=== PATIENT | female | born 1945 | race Two or more races ===

== ENCOUNTER → 2016-05-21 | Outpatient (CLI) | payer MEDICARE, MEDICAID ==
[~2016-05-21] MED LIST: BRIM0.2S2 OP; CIME-52; DEXL60CA3 OR; EMBRIL; FOLI1TAB6 OR; HYDR-1421 OR; HYDR12.56 OR; LATA0.0015 OP; LEFL20TA OR; LEVO100T81; LEVO500I7 IV; LOSA50TA6 OR; METH2.5T3 OR; METO-169; PRED5PAK8; TERI600S SC; TRIAMTERENE HCTZ
[2016-05-21 10:09] LABS: Albumin 3.7 g/dL (3.4-5.0); Bilirubin, Direct 0.2 mg/dL (0-0.2); Bilirubin, Total 0.5 mg/dL (0.2-1.0); Calcium 9.4 mg/dL (8.5-10.1); Potassium 3.8 mmol/L (3.5-5.1); Total Protein 8.1 g/dL (6.4-8.2)
[2016-05-21 10:13] LABS: Basophils # (auto) 0.1 uL; Basophils % (auto) 0.7 % (0.0-2.0); Eosinophils # (auto) 0.2 uL; Eosinophils % (auto) 3.2 % (0.0-7.0); Hematocrit 41.3 % (36.0-46.0); Hemoglobin 12.9 g/dL (12.2-16.2); Lymphocytes # (auto) 1.8 uL; Lymphocytes % (auto) 23.7 % (10.0-50.0); Mean Corpuscular Hemoglobin 28.4 pg (28.0-32.0); Mean Corpuscular Hgb Conc. 31.3 g/dL (32.0-36.0); Mean Corpuscular Volume 90.6 fL (80.0-100.0); Monocytes # (auto) 0.6 uL; Monocytes % (auto) 7.6 % (0.0-12.0); Neutrophils # (auto) 4.8 uL; Neutrophils % (auto) 64.8 % (37.0-80.0); Platelet Count (auto) 287 10^3/uL (140-450); Red Cell Distribution Width 14.6 % (11.6-16.0); White Blood Cell 7.5 10^3/uL (4.4-10.8)
== END | disposition home or self-care (01) ==
LOC: LAB 09:00
DX: I10 Essential (primary) hypertension (principal); M06.9 Rheumatoid arthritis, unspecified; D64.9 Anemia, unspecified; M25.50 Pain in unspecified joint; Z79.899 Other long term (current) drug therapy
CPT/HCPCS: 36415; 80053; 80076; 83036; 85025; 85652; 86141

== ENCOUNTER → 2016-08-07 | Outpatient (CLI) | payer MEDICARE, MEDICAID ==
[2016-08-07 10:36] LABS: Urine Bilirubin Negative (Negative); Urine Blood Negative /uL (Negative); Urine Color Yellow (Yellow); Urine Glucose Normal (Normal); Urine Hyaline Cast FEW /lpf (0 - 2); Urine Ketone Negative (Negative); Urine Nitrite Negative (Negative); Urine RBC 1 /hpf (0 - 4); Urine Squamous Epithelial Cell FEW /hpf (<5); Urine Urobilinogen Normal (Negative)
[2016-08-07 10:41] LABS: Cholesterol 178 mg/dL (< 200); HDL Cholesterol 57 mg/dL (40-59); LDL Cholesterol 101 mg/dL (< 100); Triglycerides 187 mg/dL (< 150)
== END | disposition home or self-care (01) ==
LOC: LAB 09:56
DX: E03.9 Hypothyroidism, unspecified (principal); E11.9 Type 2 diabetes mellitus without complications; M06.9 Rheumatoid arthritis, unspecified; I10 Essential (primary) hypertension; E78.5 Hyperlipidemia, unspecified; E74.8 Other specified disorders of carbohydrate metabolism
CPT/HCPCS: 36415; 80061; 81001; 83036; 84443

== ENCOUNTER → 2016-09-08 | Outpatient (CLI) | payer MEDICARE, MEDICAID ==
[2016-09-08 11:13] LABS: Basophils # (auto) 0 uL; Basophils % (auto) 0.5 % (0.0-2.0); Eosinophils # (auto) 0.2 uL; Eosinophils % (auto) 2.9 % (0.0-7.0); Hematocrit 36.4 % (36.0-46.0); Hemoglobin 11.9 g/dL (12.2-16.2); Lymphocytes # (auto) 1.5 uL; Lymphocytes % (auto) 20.3 % (10.0-50.0); Mean Corpuscular Hemoglobin 29.5 pg (28.0-32.0); Mean Corpuscular Hgb Conc. 32.8 g/dL (32.0-36.0); Mean Corpuscular Volume 90.1 fL (80.0-100.0); Mean Platelet Volume 8.5 fL (7.4-10.4); Monocytes # (auto) 0.5 uL; Monocytes % (auto) 7.3 % (0.0-12.0); Platelet Count (auto) 253 10^3/uL (140-450); White Blood Cell 7.2 10^3/uL (4.4-10.8)
[2016-09-08 11:35] LABS: Albumin 3.5 g/dL (3.4-5.0); BUN/Creatinine Ratio 18.2; Bilirubin, Total 0.5 mg/dL (0.2-1.0); Calcium 9.3 mg/dL (8.5-10.1); Potassium 3.5 mmol/L (3.5-5.1)
== END | disposition home or self-care (01) ==
LOC: LAB 10:45
DX: M06.9 Rheumatoid arthritis, unspecified (principal); M25.50 Pain in unspecified joint; D64.9 Anemia, unspecified; I10 Essential (primary) hypertension
CPT/HCPCS: 36415; 80053; 85025; 85652; 86141

== ENCOUNTER → 2016-12-11 | Outpatient (CLI) | payer MEDICARE, MEDICAID ==
[2016-12-11 12:24] LABS: Basophils # (auto) 0 uL; Basophils % (auto) 0.4 % (0.0-2.0); CONDITION Y; Eosinophils # (auto) 0.2 uL; Eosinophils % (auto) 1.7 % (0.0-7.0); Hematocrit 37.4 % (36.0-46.0); Hemoglobin 12.3 g/dL (12.2-16.2); Lymphocytes # (auto) 1.2 uL; Lymphocytes % (auto) 11.3 % (10.0-50.0); Mean Corpuscular Hemoglobin 29.2 pg (28.0-32.0); Mean Corpuscular Hgb Conc. 32.8 g/dL (32.0-36.0); Mean Corpuscular Volume 88.8 fL (80.0-100.0); Mean Platelet Volume 9.3 fL (7.4-10.4); Monocytes # (auto) 0.7 uL; Monocytes % (auto) 7.2 % (0.0-12.0); Neutrophils # (auto) 8.1 uL; Neutrophils % (auto) 79.4 % (37.0-80.0); Platelet Count (auto) 260 10^3/uL (140-450); Red Cell Distribution Width 14.4 % (11.6-16.0); White Blood Cell 10.3 10^3/uL (4.4-10.8)
[2016-12-11 13:06] LABS: Albumin 3.4 g/dL (3.4-5.0); BUN/Creatinine Ratio 20.8; Bilirubin, Total 0.4 mg/dL (0.2-1.0); Calcium 9.6 mg/dL (8.5-10.1); Total Protein 8.1 g/dL (6.4-8.2)
== END | disposition home or self-care (01) ==
LOC: LAB 11:19
DX: I10 Essential (primary) hypertension (principal); M25.50 Pain in unspecified joint; D64.9 Anemia, unspecified; M06.9 Rheumatoid arthritis, unspecified
CPT/HCPCS: 36415; 80053; 85025; 85652; 86141

== ENCOUNTER → 2016-12-22 | Outpatient (CLI) | payer MEDICARE, MEDICAID ==
[2016-12-22 08:33] LABS: Basophils # (auto) 0.1 uL; Basophils % (auto) 0.8 % (0.0-2.0); Eosinophils # (auto) 0.3 uL; Eosinophils % (auto) 3.7 % (0.0-7.0); Hematocrit 36.9 % (36.0-46.0); Hemoglobin 12.1 g/dL (12.2-16.2); Lymphocytes % (auto) 26.2 % (10.0-50.0); Mean Corpuscular Hgb Conc. 32.9 g/dL (32.0-36.0); Mean Corpuscular Volume 88.3 fL (80.0-100.0); Mean Platelet Volume 7.9 fL (7.4-10.4); Monocytes # (auto) 0.6 uL; Monocytes % (auto) 7.5 % (0.0-12.0); Neutrophils # (auto) 4.8 uL; Neutrophils % (auto) 61.8 % (37.0-80.0); Platelet Count (auto) 268 10^3/uL (140-450); Red Cell Distribution Width 14.8 % (11.6-16.0); White Blood Cell 7.8 10^3/uL (4.4-10.8)
[2016-12-22 08:55] LABS: Cholesterol 157 mg/dL (< 200); HDL Cholesterol 61 mg/dL (40-59); LDL Cholesterol 91 mg/dL (< 100); Triglycerides 162 mg/dL (< 150)
== END | disposition home or self-care (01) ==
LOC: LAB 08:08
DX: I10 Essential (primary) hypertension (principal); E66.01 Morbid (severe) obesity due to excess calories; E11.9 Type 2 diabetes mellitus without complications; E78.5 Hyperlipidemia, unspecified
CPT/HCPCS: 36415; 80061; 83036; 84443; 85025

== ENCOUNTER → 2017-03-11 | Outpatient (CLI) | payer MEDICARE, MEDICAID ==
[2017-03-11 13:53] LABS: Basophils # (auto) 0.1 uL; Basophils % (auto) 0.7 % (0.0-2.0); Eosinophils # (auto) 0 uL; Eosinophils % (auto) 0.4 % (0.0-7.0); Hematocrit 34.3 % (36.0-46.0); Hemoglobin 11.3 g/dL (12.2-16.2); Lymphocytes % (auto) 12.2 % (10.0-50.0); Mean Corpuscular Hemoglobin 29.3 pg (28.0-32.0); Mean Corpuscular Volume 88.8 fL (80.0-100.0); Mean Platelet Volume 8.3 fL (6.9-10.8); Monocytes # (auto) 0.4 uL; Monocytes % (auto) 4.5 % (0.0-12.0); Neutrophils % (auto) 82.2 % (37.0-80.0); Nucleated Red Blood Cells % 0.1 %; Platelet Count (auto) 226 10^3/uL (140-450); White Blood Cell 8.6 10^3/uL (4.4-10.8)
[2017-03-11 14:17] LABS: Albumin 3.4 g/dL (3.4-5.0); BUN/Creatinine Ratio 24.7; Bilirubin, Total 0.4 mg/dL (0.2-1.0); Calcium 8.9 mg/dL (8.5-10.1); Potassium 3.7 mmol/L (3.5-5.1); Total Protein 8.4 g/dL (6.4-8.2)
== END | disposition home or self-care (01) ==
LOC: LAB 13:25
DX: I10 Essential (primary) hypertension (principal); M06.9 Rheumatoid arthritis, unspecified; D64.9 Anemia, unspecified; Z79.899 Other long term (current) drug therapy
CPT/HCPCS: 36415; 80053; 85025; 85652; 86141

== ENCOUNTER → 2017-03-17 | Outpatient (CLI) | payer MEDICARE, MEDICAID ==
[2017-03-17 15:10] LABS: Hepatitis B Surface Antibody Negative
== END | disposition home or self-care (01) ==
LOC: LAB 13:07
DX: M06.9 Rheumatoid arthritis, unspecified (principal); A15.0 Tuberculosis of lung; K75.9 Inflammatory liver disease, unspecified
CPT/HCPCS: 36415; 86704; 86706; 86708; 86803; 87340

== ENCOUNTER → 2017-04-27 | Outpatient (CLI) | payer MEDICARE, MEDICAID ==
[2017-04-27 09:47] LABS: Basophils # (auto) 0 uL; Basophils % (auto) 0.7 % (0.0-2.0); Eosinophils # (auto) 0.2 uL; Eosinophils % (auto) 2.6 % (0.0-7.0); Hematocrit 36.3 % (36.0-46.0); Hemoglobin 11.7 g/dL (12.2-16.2); Lymphocytes # (auto) 1.5 uL; Lymphocytes % (auto) 23.1 % (10.0-50.0); Mean Corpuscular Hemoglobin 29.1 pg (28.0-32.0); Mean Corpuscular Hgb Conc. 32.3 g/dL (32.0-36.0); Mean Corpuscular Volume 90.1 fL (80.0-100.0); Monocytes # (auto) 0.5 uL; Monocytes % (auto) 8.1 % (0.0-12.0); Neutrophils # (auto) 4.2 uL; Neutrophils % (auto) 65.5 % (37.0-80.0); Nucleated Red Blood Cells % 0.1 %; Platelet Count (auto) 241 10^3/uL (140-450); Red Blood Cells 4.03 10^6/uL (4.0-5.20); Red Cell Distribution Width 14.5 % (11.8-14.3); White Blood Cell 6.5 10^3/uL (4.4-10.8)
[2017-04-27 10:16] LABS: Albumin 3.6 g/dL (3.4-5.0); BUN/Creatinine Ratio 28.2; Bilirubin, Total 0.4 mg/dL (0.2-1.0); Calcium 9.7 mg/dL (8.5-10.1); Potassium 4.1 mmol/L (3.5-5.1); Total Protein 8.3 g/dL (6.4-8.2)
[2017-04-27 12:15] LABS: Urine Blood Negative /uL (Negative); Urine Specific Gravity 1.021 (1.001-1.035)
[2017-04-27 12:16] LABS: Urine Bacteria FEW /hpf (None Seen)
== END | disposition home or self-care (01) ==
LOC: LAB 09:11
DX: E78.5 Hyperlipidemia, unspecified (principal); E03.9 Hypothyroidism, unspecified; M06.9 Rheumatoid arthritis, unspecified; I10 Essential (primary) hypertension; E11.9 Type 2 diabetes mellitus without complications
CPT/HCPCS: 36415; 80053; 80061; 81001; 83036; 84443; 85025

== ENCOUNTER 2017-07-10 10:52 | Emergency (ER) | payer MEDICARE, MEDICAID ==
[~2017-07-10] VITALS: Ht 157.5 cm; Wt 90.7 kg
[2017-07-10 12:21] LABS: Basophils # (auto) 0 uL; Basophils % (auto) 0.6 % (0.0-2.0); Eosinophils # (auto) 0.1 uL; Eosinophils % (auto) 1.8 % (0.0-7.0); Hematocrit 29.1 % (36.0-46.0); Hemoglobin 9.5 g/dL (12.2-16.2); Lymphocytes # (auto) 1.3 uL; Lymphocytes % (auto) 17.5 % (10.0-50.0); Mean Corpuscular Hemoglobin 30.5 pg (28.0-32.0); Mean Corpuscular Hgb Conc. 32.6 g/dL (32.0-36.0); Mean Corpuscular Volume 93.5 fL (80.0-100.0); Monocytes # (auto) 0.8 uL; Monocytes % (auto) 10.5 % (0.0-12.0); Neutrophils # (auto) 5.3 uL; Neutrophils % (auto) 69.6 % (37.0-80.0); Platelet Count (auto) 191 10^3/uL (140-450); Red Blood Cells 3.11 10^6/uL (4.0-5.20); Red Cell Distribution Width 17.2 % (11.8-14.3); White Blood Cell 7.6 10^3/uL (4.4-10.8)
[2017-07-10 12:25] LABS: Albumin 3.3 g/dL (3.4-5.0); BUN/Creatinine Ratio 23.4; Bilirubin, Total 0.4 mg/dL (0.2-1.0); Calcium 8.7 mg/dL (8.5-10.1); Potassium 3.7 mmol/L (3.5-5.1); Total Protein 6.9 g/dL (6.4-8.2)
[2017-07-10 13:29] VITALS: BP 130/74
== END 2017-07-10 13:37 | disposition home or self-care (01) ==
LOC: ER 10:52 → EDBD 10:52 → ER 13:37
DX: R42 Dizziness and giddiness (principal); D64.9 Anemia, unspecified; E11.9 Type 2 diabetes mellitus without complications; I10 Essential (primary) hypertension; Z88.1 Allergy status to other antibiotic agents; Z88.8 Allergy status to other drugs, medicaments and biological substances; Z79.899 Other long term (current) drug therapy; Z90.49 Acquired absence of other specified parts of digestive tract
CPT/HCPCS: 36415; 70450; 80053; 85025; 93005

== ENCOUNTER → 2017-08-19 | Outpatient (CLI) | payer MEDICARE, MEDICAID ==
[2017-08-19 09:08] LABS: Basophils # (auto) 0.1 uL; Basophils % (auto) 0.9 % (0.0-2.0); Eosinophils # (auto) 0.2 uL; Eosinophils % (auto) 3.2 % (0.0-7.0); Hematocrit 34.2 % (36.0-46.0); Hemoglobin 11.1 g/dL (12.2-16.2); Lymphocytes # (auto) 1.3 uL; Lymphocytes % (auto) 18.2 % (10.0-50.0); Mean Corpuscular Hemoglobin 29.5 pg (28.0-32.0); Mean Corpuscular Hgb Conc. 32.5 g/dL (32.0-36.0); Mean Corpuscular Volume 90.6 fL (80.0-100.0); Monocytes # (auto) 0.7 uL; Monocytes % (auto) 9.4 % (0.0-12.0); Neutrophils # (auto) 4.8 uL; Neutrophils % (auto) 68.3 % (37.0-80.0); Nucleated Red Blood Cells % 0.1 %; Platelet Count (auto) 239 10^3/uL (140-450); Red Blood Cells 3.78 10^6/uL (4.0-5.20); Red Cell Distribution Width 15.3 % (11.8-14.3)
[2017-08-19 10:13] LABS: Urine Bacteria NONE SEEN /hpf (None Seen); Urine Blood Negative /uL (Negative); Urine Specific Gravity 1.015 (1.001-1.035); Urine WBC 1 /hpf (0 - 5)
[2017-08-19 10:50] LABS: Albumin 3.7 g/dL (3.4-5.0); BUN/Creatinine Ratio 25.4; Bilirubin, Total 0.4 mg/dL (0.2-1.0); Calcium 9.2 mg/dL (8.5-10.1); Potassium 3.7 mmol/L (3.5-5.1)
== END | disposition home or self-care (01) ==
LOC: LAB 08:40
DX: I10 Essential (primary) hypertension (principal); M06.9 Rheumatoid arthritis, unspecified; E11.9 Type 2 diabetes mellitus without complications; E78.5 Hyperlipidemia, unspecified
CPT/HCPCS: 36415; 80053; 80061; 81001; 83036; 84443; 85025

== ENCOUNTER → 2018-05-16 | Outpatient (CLI) | payer MEDICARE, MEDICAID ==
[~2018-05-16] MED LIST changes: +LOSA-46 OR; -LOSA50TA6 OR
[2018-05-16 10:55] LABS: Basophils # (auto) 0 uL; Basophils % (auto) 0.6 % (0.0-2.0); Eosinophils # (auto) 0.1 uL; Eosinophils % (auto) 1.2 % (0.0-7.0); Hematocrit 35.8 % (36.0-46.0); Lymphocytes # (auto) 1.6 uL; Lymphocytes % (auto) 21.2 % (10.0-50.0); Mean Corpuscular Hemoglobin 29.8 pg (28.0-32.0); Mean Corpuscular Hgb Conc. 33.6 g/dL (32.0-36.0); Mean Corpuscular Volume 88.8 fL (80.0-100.0); Monocytes # (auto) 0.6 uL; Monocytes % (auto) 7.5 % (0.0-12.0); Neutrophils # (auto) 5.2 uL; Neutrophils % (auto) 69.5 % (37.0-80.0); Platelet Count (auto) 242 10^3/uL (140-450); Red Blood Cells 4.04 10^6/uL (4.0-5.20); Red Cell Distribution Width 15.8 % (11.8-14.3); White Blood Cell 7.4 10^3/uL (4.4-10.8)
[2018-05-16 11:02] LABS: Urine Bacteria MOD /hpf (None Seen); Urine Blood 1+ /uL (Negative); Urine Mucus FEW (None Seen); Urine Specific Gravity 1.031 (1.001-1.035); Urine WBC 80 /hpf (0 - 5)
[2018-05-16 11:12] LABS: Potassium 3.8 mmol/L (3.5-5.1)
[2018-05-16 11:23] LABS: Albumin 3.6 g/dL (3.4-5.0); BUN/Creatinine Ratio 23.9; Bilirubin, Total 0.6 mg/dL (0.2-1.0); Calcium 8.8 mg/dL (8.5-10.1)
== END | disposition home or self-care (01) ==
LOC: LAB 09:17
DX: E78.5 Hyperlipidemia, unspecified (principal); E03.9 Hypothyroidism, unspecified; E11.9 Type 2 diabetes mellitus without complications; I10 Essential (primary) hypertension
CPT/HCPCS: 36415; 80053; 80061; 81001; 83036; 84443; 85025

== ENCOUNTER → 2018-07-19 | Outpatient (CLI) | payer MEDICARE, MEDICAID ==
[2018-07-19 10:29] LABS: Basophils # (auto) 0 uL; Basophils % (auto) 0.5 % (0.0-2.0); Eosinophils # (auto) 0 uL; Eosinophils % (auto) 0.6 % (0.0-7.0); Hematocrit 38.6 % (36.0-46.0); Hemoglobin 12.8 g/dL (12.2-16.2); Lymphocytes # (auto) 1.1 uL; Lymphocytes % (auto) 16.1 % (10.0-50.0); Mean Corpuscular Hgb Conc. 33.1 g/dL (32.0-36.0); Mean Corpuscular Volume 90.6 fL (80.0-100.0); Monocytes # (auto) 0.5 uL; Monocytes % (auto) 8.4 % (0.0-12.0); Neutrophils # (auto) 4.9 uL; Neutrophils % (auto) 74.4 % (37.0-80.0); Nucleated Red Blood Cells % 0.1 %; Platelet Count (auto) 235 10^3/uL (140-450); Red Blood Cells 4.27 10^6/uL (4.0-5.20); Red Cell Distribution Width 14.8 % (11.8-14.3); White Blood Cell 6.5 10^3/uL (4.4-10.8)
[2018-07-19 10:49] LABS: Potassium 3.8 mmol/L (3.5-5.1)
[2018-07-19 10:59] LABS: Albumin 4.2 g/dL (3.4-5.0); BUN/Creatinine Ratio 27.6; Bilirubin, Total 0.6 mg/dL (0.2-1.0); Calcium 9.9 mg/dL (8.5-10.1); Total Protein 8.7 g/dL (6.4-8.2)
[2018-07-19 11:01] LABS: Free T4 (Free Thyroxine) 1.38 ng/dL (0.89-1.76)
[2018-07-19 11:02] LABS: T3 Total 0.85 ng/mL (0.60-1.81)
== END | disposition home or self-care (01) ==
LOC: LAB 09:50
PROVIDERS: ATTEND Internal Medicine
DX: E11.9 Type 2 diabetes mellitus without complications (principal); E07.9 Disorder of thyroid, unspecified; E55.9 Vitamin D deficiency, unspecified; E88.89 Other specified metabolic disorders; R79.89 Other specified abnormal findings of blood chemistry
CPT/HCPCS: 36415; 80053; 82306; 83036; 84439; 84443; 84480; 85025

== ENCOUNTER → 2020-03-19 | Outpatient (CLI) | payer MEDICARE, MEDICAID ==
[~2020-03-19] MED LIST changes: -DEXL60CA3 OR; +DEXL60CA4 OR; -LATA0.0015 OP; +LATA0.0019 OP; -LOSA-46 OR; +LOSA-69 OR; +METH2.5T OR; -METH2.5T3 OR
== END | disposition home or self-care (01) ==
LOC: LAB 15:43
PROVIDERS: ATTEND Nurse Practitioner Family
DX: N39.0 Urinary tract infection, site not specified (principal)
CPT/HCPCS: 87086

== ENCOUNTER → 2020-09-02 | Outpatient (CLI) | payer MEDICARE, MEDICAID ==
[~2020-09-02] MED LIST changes: -METO-169; +METO-289
[2020-09-02 09:17] LABS: Basophils # (auto) 0 10 ^3/uL (0-0.2); Basophils % (auto) 0.7 % (0.0-2.0); Eosinophils # (auto) 0.1 10 ^3/uL (0-0.8); Hematocrit 35.2 % (36.0-46.0); Hemoglobin 11.7 g/dL (12.2-16.2); Lymphocytes # (auto) 1.8 10 ^3/uL (0.4-5.4); Lymphocytes % (auto) 26.2 % (10.0-50.0); Mean Corpuscular Hemoglobin 28.7 pg (28.0-32.0); Mean Corpuscular Hgb Conc. 33.2 g/dL (32.0-36.0); Mean Corpuscular Volume 86.5 fL (80.0-100.0); Monocytes # (auto) 0.7 10 ^3/uL (0-1.3); Monocytes % (auto) 9.5 % (0.0-12.0); Neutrophils # (auto) 4.3 10 ^3/uL (1.6-8.6); Neutrophils % (auto) 61.6 % (37.0-80.0); Nucleated Red Blood Cells % 0.1 %; Platelet Count (auto) 247 10^3/uL (140-450); Red Blood Cells 4.07 10^6/uL (4.0-5.20); Red Cell Distribution Width 16.4 % (11.8-14.3); White Blood Cell 6.9 10^3/uL (4.4-10.8)
[2020-09-02 10:08] LABS: Albumin 3.6 g/dL (3.4-5.0); Calcium 9.6 mg/dL (8.5-10.1); Potassium 3.6 mmol/L (3.5-5.1)
[2020-09-02 10:16] LABS: BUN/Creatinine Ratio 21.4; Bilirubin, Total 0.6 mg/dL (0.2-1.0); Total Protein 8.3 g/dL (6.4-8.2)
== END | disposition home or self-care (01) ==
LOC: LAB 09:00
PROVIDERS: ATTEND Student in an Organized Health Care Education/Training Program
DX: E11.9 Type 2 diabetes mellitus without complications (principal); R30.0 Dysuria
CPT/HCPCS: 36415; 80053; 80061; 83036; 84443; 85025; 87086

== ENCOUNTER → 2020-09-25 | Outpatient (CLI) | payer MEDICARE, MEDICAID ==
[2020-09-25 12:14] LABS: Basophils # (auto) 0 10 ^3/uL (0-0.2); Basophils % (auto) 0.6 % (0.0-2.0); Eosinophils # (auto) 0.3 10 ^3/uL (0-0.8); Eosinophils % (auto) 4.5 % (0.0-7.0); Hematocrit 33.9 % (36.0-46.0); Hemoglobin 11.4 g/dL (12.2-16.2); Lymphocytes % (auto) 28.1 % (10.0-50.0); Mean Corpuscular Hemoglobin 28.9 pg (28.0-32.0); Mean Corpuscular Hgb Conc. 33.5 g/dL (32.0-36.0); Mean Corpuscular Volume 86.2 fL (80.0-100.0); Monocytes # (auto) 0.6 10 ^3/uL (0-1.3); Monocytes % (auto) 8.2 % (0.0-12.0); Neutrophils # (auto) 4.2 10 ^3/uL (1.6-8.6); Neutrophils % (auto) 58.6 % (37.0-80.0); Nucleated Red Blood Cells % 0.3 %; Platelet Count (auto) 286 10^3/uL (140-450); Red Blood Cells 3.93 10^6/uL (4.0-5.20); Red Cell Distribution Width 16.4 % (11.8-14.3); White Blood Cell 7.2 10^3/uL (4.4-10.8)
[2020-09-25 13:16] LABS: BUN/Creatinine Ratio 16.7; Calcium 9.6 mg/dL (8.5-10.1); Potassium 3.6 mmol/L (3.5-5.1)
== END | disposition home or self-care (01) ==
LOC: LAB 11:57
PROVIDERS: ATTEND Student in an Organized Health Care Education/Training Program
DX: E11.9 Type 2 diabetes mellitus without complications (principal); N39.0 Urinary tract infection, site not specified
CPT/HCPCS: 36415; 80048; 82043; 83036; 85025; 87086

== ENCOUNTER 2020-11-08 12:44 | Day surgery (SDC) | payer MEDICARE, MEDICAID ==
[2020-11-05 11:38] LABS: Basophils # (auto) 0 10 ^3/uL (0-0.2); Basophils % (auto) 0.6 % (0.0-2.0); Eosinophils # (auto) 0.1 10 ^3/uL (0-0.8); Hematocrit 34.4 % (36.0-46.0); Hemoglobin 11.6 g/dL (12.2-16.2); Lymphocytes # (auto) 1.3 10 ^3/uL (0.4-5.4); Lymphocytes % (auto) 16.8 % (10.0-50.0); Mean Corpuscular Hemoglobin 28.4 pg (28.0-32.0); Mean Corpuscular Hgb Conc. 33.6 g/dL (32.0-36.0); Mean Corpuscular Volume 84.6 fL (80.0-100.0); Monocytes # (auto) 0.6 10 ^3/uL (0-1.3); Monocytes % (auto) 7.5 % (0.0-12.0); Neutrophils # (auto) 5.9 10 ^3/uL (1.6-8.6); Neutrophils % (auto) 74.1 % (37.0-80.0); Nucleated Red Blood Cells % 0.1 %; Red Blood Cells 4.07 10^6/uL (4.0-5.20); Red Cell Distribution Width 16.4 % (11.8-14.3)
[2020-11-05 11:45] LABS: Calcium 9.9 mg/dL (8.5-10.1); Potassium 3.7 mmol/L (3.5-5.1)
[2020-11-05 11:49] LABS: Bilirubin, Total 0.5 mg/dL (0.2-1.0)
[2020-11-05 11:53] LABS: Urine Bacteria MOD /hpf (None Seen); Urine Blood 1+ /uL (Negative); Urine Specific Gravity 1.019 (1.001-1.035); Urine WBC 11 /hpf (0 - 5)
[~2020-11-08] VITALS: Ht 152.4 cm; Wt 76.7 kg
[~2020-11-08 12:44] MED LIST changes: +ALBUAER3 IN; +AMLO-496 PO; +ATOR20TA PO; -BRIM0.2S2 OP; +CHOL20007 PO; -CIME-52; -DEXL60CA4 OR; -LATA0.0019 OP; -LEFL20TA OR; -LEVO500I7 IV; -LOSA-69 OR; +METF-370 PO; -METH2.5T OR; +PANT1INJ3 PO; +[UNRECOGNIZED DRUG - CODE] PO
[2020-11-08] MEDS ORDERED: LIDOCAINE VISCOUS 2% 15ML UD ONE (12:55)
[2020-11-08] MEDS: diphenhdrAMINE HCL 50 MG/1 ML VL ONE ×2 (13:48→13:51)
[2020-11-08] MEDS: MIDAZOLAM HCL 5 MG/ML-1ML VIAL ONE ×3 (13:48→13:56)
[2020-11-08] MEDS: fentaNYL CITRATE 100 MCG/2 ML VL ONE ×3 (13:48→13:56)
[2020-11-08 14:30] VITALS: BP 144/77
== END 2020-11-08 14:45 | disposition home or self-care (01) ==
LOC: GI 12:44
PROVIDERS: ATTEND Internal Medicine Gastroenterology
DX: R13.10 Dysphagia, unspecified (principal); K29.50 Unspecified chronic gastritis without bleeding; K31.89 Other diseases of stomach and duodenum; J44.9 Chronic obstructive pulmonary disease, unspecified; K21.9 Gastro-esophageal reflux disease without esophagitis; E11.9 Type 2 diabetes mellitus without complications; E03.9 Hypothyroidism, unspecified; I10 Essential (primary) hypertension; E78.5 Hyperlipidemia, unspecified; Z79.899 Other long term (current) drug therapy; Z88.1 Allergy status to other antibiotic agents; Z88.2 Allergy status to sulfonamides; Z88.8 Allergy status to other drugs, medicaments and biological substances; Z68.33 Body mass index [BMI] 33.0-33.9, adult; Z87.891 Personal history of nicotine dependence; Z20.822 Contact with and (suspected) exposure to COVID-19
CPT/HCPCS: 36415; 43239; 43450; 80053; 81001; 82962; 85025; 88305; 88342; J1200; J2250; J3010; J7030; U0003; G0500

== ENCOUNTER 2020-11-22 11:55 | Day surgery (SDC) | payer MEDICARE, MEDICAID ==
[2020-11-19 12:20] LABS: Basophils # (auto) 0 10 ^3/uL (0-0.2); Basophils % (auto) 0.5 % (0.0-2.0); Eosinophils # (auto) 0 10 ^3/uL (0-0.8); Eosinophils % (auto) 0.3 % (0.0-7.0); Hematocrit 35.2 % (36.0-46.0); Hemoglobin 11.7 g/dL (12.2-16.2); Lymphocytes # (auto) 1.1 10 ^3/uL (0.4-5.4); Lymphocytes % (auto) 14.4 % (10.0-50.0); Mean Corpuscular Hemoglobin 28.2 pg (28.0-32.0); Mean Corpuscular Hgb Conc. 33.2 g/dL (32.0-36.0); Monocytes # (auto) 0.5 10 ^3/uL (0-1.3); Monocytes % (auto) 6.1 % (0.0-12.0); Neutrophils # (auto) 6.1 10 ^3/uL (1.6-8.6); Neutrophils % (auto) 78.7 % (37.0-80.0); Nucleated Red Blood Cells % 0.1 %; Red Blood Cells 4.14 10^6/uL (4.0-5.20); Red Cell Distribution Width 16.3 % (11.8-14.3); White Blood Cell 7.8 10^3/uL (4.4-10.8)
[2020-11-19 12:32] LABS: Urine Bacteria MOD /hpf (None Seen); Urine Blood TRACE /uL (Negative); Urine Hyaline Cast FEW /lpf (0 - 2); Urine Mucus FEW (None Seen); Urine WBC 12 /hpf (0 - 5)
[2020-11-19 13:06] LABS: Calcium 9.9 mg/dL (8.5-10.1); Potassium 3.5 mmol/L (3.5-5.1)
[2020-11-19 13:11] LABS: BUN/Creatinine Ratio 18.6; Bilirubin, Total 0.5 mg/dL (0.2-1.0); Total Protein 8.8 g/dL (6.4-8.2)
[~2020-11-22] VITALS: Ht 152.4 cm; Wt 76.7 kg
[2020-11-22] MEDS ORDERED: SODIUM CHLORIDE LOCK 10 ML ONE (15:06)
[2020-11-22] MEDS: fentaNYL CITRATE 100 MCG/2 ML VL ONE ×2 (15:17→15:20)
[2020-11-22] MEDS: diphenhdrAMINE HCL 50 MG/1 ML VL ONE ×2 (15:17→15:20)
[2020-11-22] MEDS: MIDAZOLAM HCL 5 MG/ML-1ML VIAL ONE ×3 (15:17→15:31)
[2020-11-22 16:10] VITALS: BP 137/63
== END 2020-11-22 16:20 | disposition home or self-care (01) ==
LOC: GI 11:55
PROVIDERS: ATTEND Internal Medicine Gastroenterology
DX: Z12.11 Encounter for screening for malignant neoplasm of colon (principal); D12.2 Benign neoplasm of ascending colon; K63.89 Other specified diseases of intestine; K57.30 Diverticulosis of large intestine without perforation or abscess without bleeding; K64.8 Other hemorrhoids; E03.9 Hypothyroidism, unspecified; J45.909 Unspecified asthma, uncomplicated; K21.9 Gastro-esophageal reflux disease without esophagitis; Z96.641 Presence of right artificial hip joint; Z88.8 Allergy status to other drugs, medicaments and biological substances; Z88.1 Allergy status to other antibiotic agents; Z88.2 Allergy status to sulfonamides; Z87.891 Personal history of nicotine dependence; Z98.890 Other specified postprocedural states; Z79.899 Other long term (current) drug therapy; Z20.822 Contact with and (suspected) exposure to COVID-19
CPT/HCPCS: 36415; 45385; 80053; 81001; 82962; 85025; J1200; J2250; J3010; J7030; U0003

== ENCOUNTER → 2021-05-06 | Outpatient (CLI) | payer MEDICARE, MEDICAID ==
[2021-05-06 09:51] LABS: Basophils # (auto) 0 10 ^3/uL (0-0.2); Basophils % (auto) 0.8 % (0.0-2.0); Eosinophils # (auto) 0.1 10 ^3/uL (0-0.8); Hematocrit 33.2 % (36.0-46.0); Hemoglobin 11.1 g/dL (12.2-16.2); Lymphocytes % (auto) 17.7 % (10.0-50.0); Mean Corpuscular Hemoglobin 28.7 pg (28.0-32.0); Mean Corpuscular Hgb Conc. 33.3 g/dL (32.0-36.0); Mean Corpuscular Volume 86.3 fL (80.0-100.0); Monocytes # (auto) 0.5 10 ^3/uL (0-1.3); Monocytes % (auto) 8.3 % (0.0-12.0); Neutrophils # (auto) 4.2 10 ^3/uL (1.6-8.6); Neutrophils % (auto) 71.2 % (37.0-80.0); Nucleated Red Blood Cells % 0.1 %; Red Blood Cells 3.85 10^6/uL (4.0-5.20); Red Cell Distribution Width 16.3 % (11.8-14.3); White Blood Cell 5.9 10^3/uL (4.4-10.8)
[2021-05-06 10:03] LABS: BUN/Creatinine Ratio 18.9; Calcium 9.3 mg/dL (8.5-10.1); Potassium 3.3 mmol/L (3.5-5.1)
== END | disposition home or self-care (01) ==
LOC: LAB 08:48
PROVIDERS: ATTEND Student in an Organized Health Care Education/Training Program
DX: E11.9 Type 2 diabetes mellitus without complications (principal); I10 Essential (primary) hypertension; N39.0 Urinary tract infection, site not specified; E03.9 Hypothyroidism, unspecified
CPT/HCPCS: 36415; 80048; 83036; 84443; 85025; 87086

== ENCOUNTER 2021-06-03 08:34 | Emergency (ER) | payer MEDICARE, MEDICAID ==
[~2021-06-03] VITALS: Ht 154.9 cm; Wt 65.8 kg
[2021-06-03 09:30] LABS: Basophils # (auto) 0 10 ^3/uL (0-0.2); Basophils % (auto) 0.3 % (0.0-2.0); Eosinophils # (auto) 0 10 ^3/uL (0-0.8); Eosinophils % (auto) 0.2 % (0.0-7.0); Hematocrit 34.5 % (36.0-46.0); Hemoglobin 11.4 g/dL (12.2-16.2); Lymphocytes # (auto) 0.5 10 ^3/uL (0.4-5.4); Lymphocytes % (auto) 7.8 % (10.0-50.0); Mean Corpuscular Hemoglobin 28.3 pg (28.0-32.0); Mean Corpuscular Hgb Conc. 33.1 g/dL (32.0-36.0); Mean Corpuscular Volume 85.5 fL (80.0-100.0); Monocytes # (auto) 0.5 10 ^3/uL (0-1.3); Monocytes % (auto) 8.3 % (0.0-12.0); Neutrophils # (auto) 5.5 10 ^3/uL (1.6-8.6); Neutrophils % (auto) 83.4 % (37.0-80.0); Nucleated Red Blood Cells % 0.1 %; Red Blood Cells 4.03 10^6/uL (4.0-5.20); Red Cell Distribution Width 16.1 % (11.8-14.3); White Blood Cell 6.6 10^3/uL (4.4-10.8)
[2021-06-03] MEDS ORDERED: SODIUM CHLORIDE 0.9% 1,000 ML IV ONE (09:30)
[2021-06-03 09:44] LABS: Albumin 3.4 g/dL (3.4-5.0); Potassium 3.3 mmol/L (3.5-5.1)
[2021-06-03 09:49] LABS: BUN/Creatinine Ratio 19.8; Bilirubin, Total 0.6 mg/dL (0.2-1.0); Total Protein 8.3 g/dL (6.4-8.2)
[2021-06-03] MEDS ORDERED: POTASSIUM EFFERVESENT TAB 25 MEQ PO ONE (11:15)
[2021-06-03 11:18] VITALS: BP 129/70
== END 2021-06-03 11:50 | disposition home or self-care (01) ==
LOC: EDBD 08:34 → ER 08:34
DX: U07.1 COVID-19 (principal); E87.6 Hypokalemia; E11.65 Type 2 diabetes mellitus with hyperglycemia; I10 Essential (primary) hypertension; Z86.73 Personal history of transient ischemic attack (TIA), and cerebral infarction without residual deficits; Z90.49 Acquired absence of other specified parts of digestive tract; Z79.899 Other long term (current) drug therapy; Z88.1 Allergy status to other antibiotic agents; Z88.8 Allergy status to other drugs, medicaments and biological substances; Z88.2 Allergy status to sulfonamides
CPT/HCPCS: 36415; 71045; 80053; 84484; 85025; 87426; 93005; 96360; 96361; 99285; J7030

== ENCOUNTER 2022-02-12 15:28 | Emergency (ER) | payer MEDICARE, MEDICAID ==
[~2022-02-12] VITALS: Ht 154.9 cm; Wt 75.0 kg
[2022-02-12] MEDS ORDERED: cloNIDine HCL 0.1 MG TAB ONE (15:51)
[2022-02-12] MEDS ORDERED: cloNIDine HCL 0.1 MG TAB PO ONE (16:00)
[2022-02-12 17:15] VITALS: BP 120/58
[2022-02-12 17:58] LABS: Basophils # (auto) 0.1 10 ^3/uL (0-0.2); Basophils % (auto) 1.1 % (0.0-2.0); Eosinophils # (auto) 0.1 10 ^3/uL (0-0.8); Eosinophils % (auto) 1.2 % (0.0-7.0); Hemoglobin 11.4 g/dL (12.2-16.2); Lymphocytes # (auto) 0.5 10 ^3/uL (0.4-5.4); Lymphocytes % (auto) 9.3 % (10.0-50.0); Mean Corpuscular Hemoglobin 27.7 pg (28.0-32.0); Mean Corpuscular Hgb Conc. 32.6 g/dL (32.0-36.0); Mean Corpuscular Volume 84.9 fL (80.0-100.0); Monocytes # (auto) 0.3 10 ^3/uL (0-1.3); Monocytes % (auto) 5.6 % (0.0-12.0); Neutrophils # (auto) 4.5 10 ^3/uL (1.6-8.6); Neutrophils % (auto) 82.8 % (37.0-80.0); Nucleated Red Blood Cells % 0.1 %; Red Blood Cells 4.12 10^6/uL (4.0-5.20); Red Cell Distribution Width 16.3 % (11.8-14.3); White Blood Cell 5.5 10^3/uL (4.4-10.8)
[2022-02-12 18:04] LABS: Albumin 3.6 g/dL (3.4-5.0); Calcium 9.3 mg/dL (8.5-10.1); Magnesium 1.7 mg/dL (1.6-2.6); Potassium 4.8 mmol/L (3.5-5.1)
[2022-02-12 18:06] LABS: BUN/Creatinine Ratio 12.4; Bilirubin, Total 0.4 mg/dL (0.2-1.0); Total Protein 7.3 g/dL (6.4-8.2)
[2022-02-12 18:15] LABS: INR 1.03 (0.9-1.15); Partial Thromboplastin Time 26.8 sec (24.6-33.4)
[2022-02-12] MEDS ORDERED: IOHEXOL 350 MG/ML 100ML IJ ONE (19:08)
[2022-02-12] MEDS ORDERED: DOXY-340 PO (22:06)
[2022-02-12] MEDS ORDERED: DOXYCYCLINE 100 MG TAB/CAP PO ONE (22:15)
== END 2022-02-12 22:27 | disposition home or self-care (01) ==
LOC: ER 15:28
DX: J18.9 Pneumonia, unspecified organism (principal); I10 Essential (primary) hypertension; E11.9 Type 2 diabetes mellitus without complications; Z86.73 Personal history of transient ischemic attack (TIA), and cerebral infarction without residual deficits; Z90.49 Acquired absence of other specified parts of digestive tract; Z79.899 Other long term (current) drug therapy; Z88.1 Allergy status to other antibiotic agents; Z88.2 Allergy status to sulfonamides; Z88.8 Allergy status to other drugs, medicaments and biological substances
CPT/HCPCS: 36415; 71045; 71275; 80053; 83735; 83880; 84484; 85025; 85379; 85610; 85730; 93005; 99285; Q9967

== ENCOUNTER 2022-02-16 14:51 | Inpatient (IN) | payer MEDICARE, MEDICAID ==
[~2022-02-16] VITALS: Ht 172.7 cm; Wt 74.8 kg
[~2022-02-16 14:51] MED LIST changes: +DOXY-340 PO
[2022-02-16] MEDS ORDERED: cefTRIAXone 1GM/50ML D5W 50 ML IV ONE (15:45)
[2022-02-16] MEDS ORDERED: SODIUM CHLORIDE 0.9% 1,000 ML IV ONE (16:15)
[2022-02-16 16:23] LABS: Basophils # (auto) 0 10 ^3/uL (0-0.2); Basophils % (auto) 0.4 % (0.0-2.0); Eosinophils # (auto) 0 10 ^3/uL (0-0.8); Hematocrit 36.9 % (36.0-46.0); Hemoglobin 11.9 g/dL (12.2-16.2); Lymphocytes # (auto) 0.7 10 ^3/uL (0.4-5.4); Mean Corpuscular Hemoglobin 27.7 pg (28.0-32.0); Mean Corpuscular Hgb Conc. 32.3 g/dL (32.0-36.0); Mean Corpuscular Volume 85.6 fL (80.0-100.0); Monocytes # (auto) 0.9 10 ^3/uL (0-1.3); Monocytes % (auto) 14.6 % (0.0-12.0); Neutrophils # (auto) 4.5 10 ^3/uL (1.6-8.6); Nucleated Red Blood Cells % 0.2 %; Red Blood Cells 4.31 10^6/uL (4.0-5.20); Red Cell Distribution Width 15.9 % (11.8-14.3)
[2022-02-16 16:46] LABS: Alanine Aminotransferase 30 U/L (13-56); Albumin 3.6 g/dL (3.4-5.0); Anion Gap 12 (5-15); Aspartate Aminotransferase 42 U/L (15-37); BUN/Creatinine Ratio 11.9; Blood Alcohol < 3.0 mg/dL (0-5); Blood Urea Nitrogen 13 mg/dL (7-18); Calcium 9.6 mg/dL (8.5-10.1); Carbon Dioxide 23 mmol/L (21-32); Chloride 98 mmol/L (98-107); GFR African American 63 mL/min; GFR Non-African American 52 mL/min; Glucose 181 mg/dL (74-106); Potassium 3.6 mmol/L (3.5-5.1); Sodium 133 mmol/L (136-145)
[2022-02-16 16:52] LABS: Alkaline Phosphatase 44 U/L (45-117); Bilirubin, Total 0.6 mg/dL (0.2-1.0); Total Protein 7.3 g/dL (6.4-8.2)
[2022-02-16] MEDS ORDERED: ENOXAPARIN SOD 80 MG/0.8ML SYRINGE SC ONE (17:30)
[2022-02-16 17:55] LABS: Urine Bacteria NONE SEEN /hpf (None Seen); Urine Blood Negative /uL (Negative); Urine Specific Gravity 1.011 (1.001-1.035); Urine WBC 2 /hpf (0 - 5)
[2022-02-16] MEDS ORDERED: ACETAMINOPHEN 325 MG TAB PO ONE (19:30)
[2022-02-16] MEDS ORDERED: SODIUM CHLORIDE 0.9% 500 ML IV ONE (21:00)
[2022-02-16] MEDS ORDERED: DEXTROSE (50%) 50ML SYRG IV PRN (21:00)
[2022-02-16] MEDS ORDERED: ACETAMINOPHEN 325 MG TAB PO PRN (21:00)
[2022-02-16] MEDS ORDERED: ONDANSETRON HCL 4 MG/2 ML VIAL IV PRN (21:00)
[2022-02-16] MEDS ORDERED: NITROGLYCERIN 0.4 MG SL TAB SL PRN (21:00)
[2022-02-16] MEDS ORDERED: MORPHINE SULFATE INJ 2 MG/ml SYRG IV PRN (21:00)
[2022-02-16] MEDS: ACCU-CHEK COMFORT CURVE STRIP VI SCH (22:48)
[2022-02-16] MEDS: ATORVASTATIN 20 MG TAB PO SCH (22:48)
[2022-02-16] MEDS: InsuLIN REG 1unit/0.01ml Soln (100units/ml) SC SCH (22:52)
[2022-02-17 05:56] LABS: Basophils # (auto) 0 10 ^3/uL (0-0.2); Basophils % (auto) 0.8 % (0.0-2.0); Eosinophils # (auto) 0 10 ^3/uL (0-0.8); Hematocrit 34.3 % (36.0-46.0); Hemoglobin 11.5 g/dL (12.2-16.2); Lymphocytes # (auto) 0.8 10 ^3/uL (0.4-5.4); Lymphocytes % (auto) 24.2 % (10.0-50.0); Mean Corpuscular Hemoglobin 28.7 pg (28.0-32.0); Mean Corpuscular Hgb Conc. 33.6 g/dL (32.0-36.0); Mean Corpuscular Volume 85.4 fL (80.0-100.0); Monocytes # (auto) 0.6 10 ^3/uL (0-1.3); Monocytes % (auto) 17.9 % (0.0-12.0); Neutrophils # (auto) 1.9 10 ^3/uL (1.6-8.6); Neutrophils % (auto) 57.1 % (37.0-80.0); Nucleated Red Blood Cells % 0.1 %; Red Blood Cells 4.01 10^6/uL (4.0-5.20); White Blood Cell 3.3 10^3/uL (4.4-10.8)
[2022-02-17 06:14] LABS: Albumin 3.1 g/dL (3.4-5.0); BUN/Creatinine Ratio 10.6; Calcium 8.6 mg/dL (8.5-10.1); Potassium 3.3 mmol/L (3.5-5.1)
[2022-02-17 06:36] LABS: Bilirubin, Total 0.4 mg/dL (0.2-1.0)
[2022-02-17] MEDS: LEVOTHYROXINE SODIUM 100 MCG TAB PO SCH (06:51)
[2022-02-17] MEDS: InsuLIN REG 1unit/0.01ml Soln (100units/ml) SC SCH ×4 (06:51→23:43)
[2022-02-17] MEDS: ACCU-CHEK COMFORT CURVE STRIP VI SCH ×4 (06:51→23:15)
[2022-02-17] MEDS: HYDROcodone-ACET 5/325MG TAB PO PRN ×2 (06:53→23:29)
[2022-02-17] MEDS: cefTRIAXone 1GM/50ML D5W 50 ML IV SCH (09:00)
[2022-02-17] MEDS ORDERED: ASPirin 81 mg TAB PO SCH (10:00)
[2022-02-17] MEDS: METOPROLOL SUCCINATE XL 50 MG TAB PO SCH (10:00)
[2022-02-17] MEDS: PANTOPRAZOLE 40 MG TAB PO SCH (10:17)
[2022-02-17] MEDS: amLODIPine BESYLATE 5 MG TAB PO SCH (10:39)
[2022-02-17 23:16] VITALS: BP 123/63
[2022-02-17] MEDS: ENOXAPARIN SOD 40 MG/0.4 ML SYRINGE SC SCH (23:30)
[2022-02-17] MEDS: ATORVASTATIN 20 MG TAB PO SCH (23:30)
[2022-02-18 05:00] VITALS: BP 117/59
[2022-02-18] MEDS: LEVOTHYROXINE SODIUM 100 MCG TAB PO SCH (06:00)
[2022-02-18] MEDS: ACCU-CHEK COMFORT CURVE STRIP VI SCH ×4 (06:00→22:46)
[2022-02-18] MEDS: InsuLIN REG 1unit/0.01ml Soln (100units/ml) SC SCH ×4 (06:03→23:11)
[2022-02-18] MEDS: HYDROcodone-ACET 5/325MG TAB PO PRN ×2 (06:09→12:17)
[2022-02-18 09:00] VITALS: BP 114/40
[2022-02-18] MEDS: cefTRIAXone 1GM/50ML D5W 50 ML IV SCH (09:32)
[2022-02-18] MEDS: PANTOPRAZOLE 40 MG TAB PO SCH (09:32)
[2022-02-18] MEDS: amLODIPine BESYLATE 5 MG TAB PO SCH (09:33)
[2022-02-18] MEDS: METOPROLOL SUCCINATE XL 50 MG TAB PO SCH (09:33)
[2022-02-18 13:00] VITALS: BP 120/58
[2022-02-18] MEDS ORDERED: cefTRIAXone 1GM/50ML D5W 50 ML IV ONE (14:45)
[2022-02-18 17:00] VITALS: BP 154/57
[2022-02-18] MEDS: predniSONE 5 MG TAB PO SCH (17:50)
[2022-02-18] MEDS: ATORVASTATIN 20 MG TAB PO SCH (21:48)
[2022-02-18] MEDS: ENOXAPARIN SOD 40 MG/0.4 ML SYRINGE SC SCH (21:48)
[2022-02-18 22:00] VITALS: BP 141/75
[2022-02-19 05:00] VITALS: BP_SYST 156; BP_SYST 18; BP_DIAS 156; BP_DIAS 72
[2022-02-19] MEDS: ACCU-CHEK COMFORT CURVE STRIP VI SCH ×3 (05:40→17:15)
[2022-02-19] MEDS: LEVOTHYROXINE SODIUM 100 MCG TAB PO SCH (05:40)
[2022-02-19] MEDS: InsuLIN REG 1unit/0.01ml Soln (100units/ml) SC SCH ×3 (06:14→17:17)
[2022-02-19] MEDS: HYDROcodone-ACET 5/325MG TAB PO PRN ×2 (06:53→14:50)
[2022-02-19 08:30] VITALS: BP 126/72
[2022-02-19] MEDS ORDERED: cefTRIAXone 1GM/50ML D5W 50 ML IV SCH (09:00)
[2022-02-19] MEDS: PANTOPRAZOLE 40 MG TAB PO SCH (09:00)
[2022-02-19] MEDS: METOPROLOL SUCCINATE XL 50 MG TAB PO SCH (09:01)
[2022-02-19] MEDS: predniSONE 5 MG TAB PO SCH ×2 (09:01→17:16)
[2022-02-19] MEDS: cefTRIAXone 1GM/50ML D5W 50 ML IV SCH (09:02)
[2022-02-19] MEDS: amLODIPine BESYLATE 5 MG TAB PO SCH (09:02)
[2022-02-19] MEDS ORDERED: MAGNESIUM SULFATE 1GM/100ML 100 ML IV ONE (11:00)
[2022-02-19 12:30] VITALS: BP 119/61
[2022-02-19 17:00] VITALS: BP 141/61
[2022-02-19] MEDS ORDERED: AMOX-277 PO ×2 (17:44)
[2022-02-19 18:46] VITALS: BP 126/72
== END 2022-02-19 19:35 | disposition home or self-care (01) | DRG 177 ==
LOC: EDBD 14:51 → ER 14:58 → TELE 21:00 → TELE-WESTW 02-17 21:55
PROVIDERS: ADMIT Nurse Practitioner; ATTEND Student in an Organized Health Care Education/Training Program
DX: J69.0 Pneumonitis due to inhalation of food and vomit (principal); G93.41 Metabolic encephalopathy; I21.A1 Myocardial infarction type 2; J96.01 Acute respiratory failure with hypoxia; R65.10 Systemic inflammatory response syndrome (SIRS) of non-infectious origin without acute organ dysfunction; E11.65 Type 2 diabetes mellitus with hyperglycemia; Z20.822 Contact with and (suspected) exposure to COVID-19; E07.9 Disorder of thyroid, unspecified; E66.9 Obesity, unspecified; I10 Essential (primary) hypertension; E78.5 Hyperlipidemia, unspecified; E83.42 Hypomagnesemia; A05.9 Bacterial foodborne intoxication, unspecified; E87.6 Hypokalemia; Z79.84 Long term (current) use of oral hypoglycemic drugs; Z88.2 Allergy status to sulfonamides; Z88.8 Allergy status to other drugs, medicaments and biological substances; Z90.49 Acquired absence of other specified parts of digestive tract; Z68.25 Body mass index [BMI] 25.0-25.9, adult; Z86.73 Personal history of transient ischemic attack (TIA), and cerebral infarction without residual deficits
CPT/HCPCS: 36415; 70450; 71045; 80053; 80320; 81001; 82962; 83036; 83605; 83735; 84443; 84484; 85025; 85379; 87040; 87081; 87426; 93005; 93306; 96361; 96365; 96372; 97163; 99291; G0378; J0696; J1815

== ENCOUNTER 2022-12-03 17:46 | Emergency (ER) | payer MEDICARE, MEDICAID ==
[~2022-12-03] VITALS: Ht 152.4 cm; Wt 74.8 kg
[~2022-12-03 17:46] MED LIST changes: -AMLO-496 PO; +AMLO1TAB23 PO; +AMOX875T4 PO; -DOXY-340 PO; +DOXY1CAP57 PO; +FOLI-119 OR; -FOLI1TAB6 OR; -HYDR12.56 OR; +HYDR12.59 OR
[2022-12-03 19:41] LABS: Basophils # (auto) 0 10 ^3/uL (0-0.2); Basophils % (auto) 0.3 % (0.0-2.0); Eosinophils # (auto) 0.2 10 ^3/uL (0-0.8); Eosinophils % (auto) 2.3 % (0.0-7.0); Hematocrit 35.7 % (36.0-46.0); Hemoglobin 11.4 g/dL (12.2-16.2); Lymphocytes # (auto) 0.7 10 ^3/uL (0.4-5.4); Lymphocytes % (auto) 8.6 % (10.0-50.0); Mean Corpuscular Hemoglobin 27.5 pg (28.0-32.0); Mean Corpuscular Volume 85.8 fL (80.0-100.0); Monocytes # (auto) 0.3 10 ^3/uL (0-1.3); Monocytes % (auto) 4.2 % (0.0-12.0); Neutrophils # (auto) 6.8 10 ^3/uL (1.6-8.6); Neutrophils % (auto) 84.6 % (37.0-80.0); Red Blood Cells 4.17 10^6/uL (4.0-5.20); Red Cell Distribution Width 15.8 % (11.8-14.3)
[2022-12-03 19:57] VITALS: BP 154/72; PULSE 93; RESP 16; TEMP 97.8; O2SAT 95
[2022-12-03 20:13] LABS: Alanine Aminotransferase 15 U/L (7-40); Albumin 4.2 g/dL (3.2-4.8); Alkaline Phosphatase 50 U/L (46-116); Anion Gap 10.7 (5-15); Aspartate Aminotransferase 10 U/L (13-40); BUN/Creatinine Ratio 14.7 (10.0-20.0); Bilirubin, Total 0.5 mg/dL (0.2-1.0); Blood Urea Nitrogen 19 mg/dL (9-23); Calcium 9.2 mg/dL (8.5-10.1); Carbon Dioxide 19.3 mmol/L (20-30); Chloride 101 mmol/L (98-107); Glucose 262 mg/dL (74-106); Potassium 4.4 mmol/L (3.5-5.1); Sodium 131 mmol/L (136-145)
[2022-12-03 20:34] LABS: Urine Bacteria FEW /hpf (None Seen); Urine Blood Negative /uL (Negative); Urine Clarity Clear (Clear); Urine Color Yellow (Yellow); Urine Protein, UAD TRACE (Negative); Urine Specific Gravity 1.021 (1.001-1.035); Urine Urobilinogen Normal (Negative); Urine WBC <1 /hpf (0 - 5); Urine pH 5.5 (5.0-8.0)
[2022-12-03] MEDS ORDERED: CEPH500C PO (21:02)
[2022-12-03] MEDS ORDERED: TRIA0.02 TOP (21:10)
== END 2022-12-03 21:17 | disposition home or self-care (01) ==
LOC: ER 17:46
DX: N39.0 Urinary tract infection, site not specified (principal); E11.9 Type 2 diabetes mellitus without complications; Z90.49 Acquired absence of other specified parts of digestive tract; Z79.84 Long term (current) use of oral hypoglycemic drugs; Z79.2 Long term (current) use of antibiotics; Z79.899 Other long term (current) drug therapy; Z88.1 Allergy status to other antibiotic agents; Z88.2 Allergy status to sulfonamides; Z88.8 Allergy status to other drugs, medicaments and biological substances
CPT/HCPCS: 36415; 80053; 81001; 82962; 85025

== ENCOUNTER 2023-02-08 12:57 | Inpatient (IN) | payer MEDICARE, MEDICAID ==
[~2023-02-08] VITALS: Ht 157.5 cm; Wt 74.0 kg
[~2023-02-08 12:57] MED LIST changes: +CEPH500C PO; +TRIA0.02 TOP
[2023-02-08] MEDS ORDERED: AZITHROMYCIN 500MG/ 250ML 250 ML IV ONE (13:15)
[2023-02-08] MEDS ORDERED: SODIUM CHLORIDE 0.9% 1,000 ML IV ONE ×3 (13:15→17:45)
[2023-02-08] MEDS ORDERED: cefTRIAXone 1GM/50ML D5W 50 ML IV ONE (13:15)
[2023-02-08 14:05] LABS: Basophils # (auto) 0 10 ^3/uL (0-0.2); Basophils % (auto) 0.3 % (0.0-2.0); Eosinophils # (auto) 0.1 10 ^3/uL (0-0.8); Eosinophils % (auto) 0.6 % (0.0-7.0); Hematocrit 35.3 % (36.0-46.0); Hemoglobin 11.3 g/dL (12.2-16.2); Lymphocytes % (auto) 9.1 % (10.0-50.0); Mean Corpuscular Hemoglobin 27.5 pg (28.0-32.0); Mean Corpuscular Volume 85.9 fL (80.0-100.0); Monocytes # (auto) 0.8 10 ^3/uL (0-1.3); Monocytes % (auto) 7.2 % (0.0-12.0); Neutrophils # (auto) 9.2 10 ^3/uL (1.6-8.6); Neutrophils % (auto) 82.8 % (37.0-80.0); Nucleated Red Blood Cells % 0.1 %; White Blood Cell 11.1 10^3/uL (4.4-10.8)
[2023-02-08 14:09] LABS: Lactic Acid w/Reflex 2.3 mmol/L (0.4-2.0)
[2023-02-08 14:10] LABS: Alanine Aminotransferase 20 U/L (7-40); Albumin 4.3 g/dL (3.2-4.8); Alkaline Phosphatase 73 U/L (46-116); Anion Gap 9 (5-15); Aspartate Aminotransferase 18 U/L (13-40); Bilirubin, Total 0.7 mg/dL (0.2-1.0); Blood Urea Nitrogen 22 mg/dL (9-23); Calcium 9.8 mg/dL (8.5-10.1); Carbon Dioxide 24 mmol/L (20-30); Chloride 100 mmol/L (98-107); Glucose 215 mg/dL (74-106); Potassium 3.8 mmol/L (3.5-5.1); Sodium 133 mmol/L (136-145)
[2023-02-08] MEDS ORDERED: ONDANSETRON HCL 4 MG/2 ML VIAL IV ONE (15:15)
[2023-02-08] MEDS ORDERED: MAALOX PLUS or MAALOX 30 ML PO PRN (18:00)
[2023-02-08] MEDS ORDERED: LABETALOL HCL 5 MG/ML 4ML SYRINGE IV PRN (18:00)
[2023-02-08] MEDS ORDERED: MORPHINE SULFATE INJ 2 MG/ml SYRG IV PRN (18:00)
[2023-02-08] MEDS ORDERED: ACETAMINOPHEN 325 MG TAB PO PRN (18:00)
[2023-02-08] MEDS ORDERED: cloNIDine HCL 0.1 MG TAB PO PRN (18:00)
[2023-02-08] MEDS ORDERED: DEXTROSE (50%) 50ML SYRG IV PRN (18:15)
[2023-02-08 19:23] LABS: INR 1.1 (0.9-1.15); Partial Thromboplastin Time 28.3 SEC (24.5-34.5); Prothrombin Time 11.5 sec (9.3-11.8)
[2023-02-08 23:30] VITALS: PULSE 111; RESP 18; O2SAT 92
[2023-02-08] MEDS: metroNIDAZOLE 500MG/100ML 100 ML IV SCH (23:31)
[2023-02-08] MEDS: SODIUM CHLOR 0.9% PF (SALINE LOCK) 10ML VIAL/SYR IV SCH (23:31)
[2023-02-08] MEDS: PANTOPRAZOLE 40 MG/10 ML VIAL INJ IV SCH (23:31)
[2023-02-08] MEDS: METOPROLOL SUCCINATE XL 50 MG TAB PO SCH (23:32)
[2023-02-08] MEDS: ATORVASTATIN 20 MG TAB PO SCH (23:32)
[2023-02-08] MEDS: HYDROcodone-ACET 5/325MG TAB PO PRN (23:32)
[2023-02-08] MEDS: ACCU-CHEK COMFORT CURVE STRIP VI SCH (23:52)
[2023-02-08] MEDS: InsuLIN REG 1unit/0.01ml Soln (100units/ml) SC SCH (23:57)
[2023-02-09] MEDS: LEVOTHYROXINE SODIUM 100 MCG TAB PO SCH (07:34)
[2023-02-09] MEDS: ACCU-CHEK COMFORT CURVE STRIP VI SCH ×3 (07:34→18:02)
[2023-02-09] MEDS: SODIUM CHLOR 0.9% PF (SALINE LOCK) 10ML VIAL/SYR IV SCH ×3 (07:34→22:12)
[2023-02-09] MEDS: metroNIDAZOLE 500MG/100ML 100 ML IV SCH ×3 (07:39→22:17)
[2023-02-09] MEDS: InsuLIN REG 1unit/0.01ml Soln (100units/ml) SC SCH ×3 (07:40→18:00)
[2023-02-09] MEDS: ONDANSETRON HCL 4 MG/2 ML VIAL IV PRN ×2 (07:47→16:05)
[2023-02-09 08:00] VITALS: PULSE 92; RESP 21; O2SAT 96
[2023-02-09 08:11] LABS: Rapid Influenza A Negative (Negative); Rapid Influenza B Negative (Negative)
[2023-02-09 08:26] LABS: COVID19 ANTIGEN SOFIA FIA POSITIVE (NEGATIVE)
[2023-02-09] MEDS ORDERED: PANTOPRAZOLE 40 MG/10 ML VIAL INJ IV SCH (10:00)
[2023-02-09] MEDS: ENOXAPARIN SOD 40 MG/0.4 ML SYRINGE SC SCH (10:52)
[2023-02-09] MEDS: CEFTRIAXONE SODIUM 2 GM in D5W 5% 100 ML IV SCH (10:52)
[2023-02-09] MEDS: PANTOPRAZOLE 40 MG/10 ML VIAL INJ IV SCH ×2 (10:53→22:17)
[2023-02-09] MEDS: METOPROLOL SUCCINATE XL 50 MG TAB PO SCH ×2 (10:54→22:17)
[2023-02-09] MEDS: amLODIPine BESYLATE 5 MG TAB PO SCH (10:54)
[2023-02-09 13:16] LABS: Chloride 104 mmol/L (98-107); Potassium 3.2 mmol/L (3.5-5.1); Sodium 136 mmol/L (136-145)
[2023-02-09 13:17] LABS: Anion Gap 8 (5-15); Calcium 8.1 mg/dL (8.5-10.1); Carbon Dioxide 24 mmol/L (20-30)
[2023-02-09 13:22] LABS: Glucose 131 mg/dL (74-106)
[2023-02-09 13:23] LABS: BUN/Creatinine Ratio 11.6 (10.0-20.0); Blood Urea Nitrogen 10 mg/dL (9-23)
[2023-02-09] MEDS ORDERED: POTASSIUM CHL 20 Meq TABLET PO ONE (16:30)
[2023-02-09 19:44] VITALS: PULSE 91; RESP 20; O2SAT 94
[2023-02-09] MEDS: ATORVASTATIN 20 MG TAB PO SCH (22:17)
[2023-02-09] MEDS: HYDROcodone-ACET 5/325MG TAB PO PRN (23:14)
[2023-02-09 23:40] VITALS: BP_SYST 114; BP_SYST 171; BP_DIAS 56; BP_DIAS 66; PULSE 61; PULSE 91; PULSE 95; RESP 20; TEMP 97.6; O2SAT 95; O2SAT 98
[2023-02-10] VITALS (7 sets, daily range): BP systolic 110–129; BP diastolic 48–60; PULSE 75–94; RESP 18–20; TEMP 98.1–99.3; O2SAT 94–99
[2023-02-10] MEDS: ACCU-CHEK COMFORT CURVE STRIP VI SCH ×4 (00:12→17:49)
[2023-02-10] MEDS: TEMAZEPAM 15 MG CAP PO PRN (00:12)
[2023-02-10] MEDS: InsuLIN REG 1unit/0.01ml Soln (100units/ml) SC SCH ×4 (06:00→17:57)
[2023-02-10] MEDS: metroNIDAZOLE 500MG/100ML 100 ML IV SCH ×3 (06:10→22:57)
[2023-02-10] MEDS: SODIUM CHLOR 0.9% PF (SALINE LOCK) 10ML VIAL/SYR IV SCH ×3 (06:10→22:58)
[2023-02-10] MEDS: LEVOTHYROXINE SODIUM 100 MCG TAB PO SCH (06:13)
[2023-02-10 08:59] LABS: Anion Gap 8 (5-15); Carbon Dioxide 23 mmol/L (20-30); Chloride 104 mmol/L (98-107); Potassium 3.5 mmol/L (3.5-5.1); Sodium 135 mmol/L (136-145)
[2023-02-10 09:00] LABS: Calcium 8.3 mg/dL (8.7-10.4)
[2023-02-10 09:05] LABS: BUN/Creatinine Ratio 7.9 (10.0-20.0); Blood Urea Nitrogen 7 mg/dL (9-23); Glucose 117 mg/dL (74-106); Magnesium 1.3 mg/dL (1.6-2.6)
[2023-02-10 09:07] LABS: Phosphorus 2.1 mg/dL (2.4-5.1)
[2023-02-10 10:47] LABS: Basophils # (auto) 0 10 ^3/uL (0-0.2); Basophils % (auto) 0.4 % (0.0-2.0); Eosinophils # (auto) 0 10 ^3/uL (0-0.8); Eosinophils % (auto) 0.6 % (0.0-7.0); Hematocrit 32.3 % (36.0-46.0); Hemoglobin 10.3 g/dL (12.2-16.2); Lymphocytes # (auto) 1.2 10 ^3/uL (0.4-5.4); Lymphocytes % (auto) 15.5 % (10.0-50.0); Mean Corpuscular Hemoglobin 27.8 pg (28.0-32.0); Mean Corpuscular Hgb Conc. 31.9 g/dL (32.0-36.0); Mean Corpuscular Volume 87.2 fL (80.0-100.0); Monocytes # (auto) 0.8 10 ^3/uL (0-1.3); Monocytes % (auto) 10.4 % (0.0-12.0); Neutrophils # (auto) 5.7 10 ^3/uL (1.6-8.6); Neutrophils % (auto) 73.1 % (37.0-80.0); Nucleated Red Blood Cells % 0.1 %; Red Cell Distribution Width 14.7 % (11.8-14.3); White Blood Cell 7.8 10^3/uL (4.4-10.8)
[2023-02-10] MEDS: PANTOPRAZOLE 40 MG/10 ML VIAL INJ IV SCH ×2 (10:56→22:57)
[2023-02-10] MEDS: ENOXAPARIN SOD 40 MG/0.4 ML SYRINGE SC SCH (10:56)
[2023-02-10] MEDS: CEFTRIAXONE SODIUM 2 GM in D5W 5% 100 ML IV SCH (10:56)
[2023-02-10] MEDS: METOPROLOL SUCCINATE XL 50 MG TAB PO SCH ×2 (10:57→23:01)
[2023-02-10] MEDS: HYDROcodone-ACET 5/325MG TAB PO PRN ×3 (10:57→19:54)
[2023-02-10] MEDS: amLODIPine BESYLATE 5 MG TAB PO SCH (10:58)
[2023-02-10 12:10] LABS: Alanine Aminotransferase 13 U/L (7-40); Albumin 3.9 g/dL (3.2-4.8); Alkaline Phosphatase 45 U/L (46-116); Anion Gap 11 (5-15); Aspartate Aminotransferase 23 U/L (13-40); BUN/Creatinine Ratio 9.1 (10.0-20.0); Bilirubin, Total 0.5 mg/dL (0.2-1.0); Blood Urea Nitrogen 8 mg/dL (9-23); Calcium 8.5 mg/dL (8.5-10.1); Carbon Dioxide 22 mmol/L (20-30); Chloride 103 mmol/L (98-107); Glucose 117 mg/dL (74-106); Potassium 3.6 mmol/L (3.5-5.1); Sodium 136 mmol/L (136-145); Total Protein 6.6 g/dL (5.7-8.2)
[2023-02-10] MEDS ORDERED: POTASSIUM PHOSPHATE 26.4 MEQ in SODIUM CHL 0.9% 100 ML IV ONE (17:30)
[2023-02-10] MEDS: ATORVASTATIN 20 MG TAB PO SCH (22:57)
[2023-02-11] VITALS (7 sets, daily range): BP systolic 109–149; BP diastolic 50–72; PULSE 82–101; RESP 18–20; TEMP 97.7–99.1; O2SAT 91–98
[2023-02-11] MEDS: ACCU-CHEK COMFORT CURVE STRIP VI SCH ×4 (00:16→18:29)
[2023-02-11] MEDS: InsuLIN REG 1unit/0.01ml Soln (100units/ml) SC SCH ×4 (00:17→18:38)
[2023-02-11] MEDS: ONDANSETRON HCL 4 MG/2 ML VIAL IV PRN (00:27)
[2023-02-11] MEDS: TEMAZEPAM 15 MG CAP PO PRN (01:54)
[2023-02-11 05:23] LABS: Calcium 8.3 mg/dL (8.7-10.4); Chloride 101 mmol/L (98-107); Potassium 3.2 mmol/L (3.5-5.1); Sodium 134 mmol/L (136-145)
[2023-02-11 05:24] LABS: Anion Gap 9 (5-15); Carbon Dioxide 24 mmol/L (20-30)
[2023-02-11 05:29] LABS: BUN/Creatinine Ratio 6.5 (10.0-20.0); Blood Urea Nitrogen 5 mg/dL (9-23); Glucose 143 mg/dL (74-106)
[2023-02-11] MEDS: metroNIDAZOLE 500MG/100ML 100 ML IV SCH ×3 (05:48→22:25)
[2023-02-11] MEDS: SODIUM CHLOR 0.9% PF (SALINE LOCK) 10ML VIAL/SYR IV SCH ×3 (05:53→21:41)
[2023-02-11] MEDS: LEVOTHYROXINE SODIUM 100 MCG TAB PO SCH (06:31)
[2023-02-11] MEDS: HYDROcodone-ACET 5/325MG TAB PO PRN ×3 (09:38→21:39)
[2023-02-11] MEDS: ENOXAPARIN SOD 40 MG/0.4 ML SYRINGE SC SCH (09:38)
[2023-02-11] MEDS: PANTOPRAZOLE 40 MG/10 ML VIAL INJ IV SCH ×2 (09:38→21:40)
[2023-02-11] MEDS: METOPROLOL SUCCINATE XL 50 MG TAB PO SCH ×2 (09:40→21:39)
[2023-02-11] MEDS: amLODIPine BESYLATE 5 MG TAB PO SCH (09:40)
[2023-02-11] MEDS: CEFTRIAXONE SODIUM 2 GM in D5W 5% 100 ML IV SCH (10:45)
[2023-02-11] MEDS ORDERED: POTASSIUM CHL 20 Meq TABLET PO ONE (10:45)
[2023-02-11 17:25] LABS: Urine Bacteria FEW /hpf (None Seen); Urine Blood Negative /uL (Negative); Urine Clarity Clear (Clear); Urine Color Colorless (Yellow); Urine Protein, UAD Negative (Negative); Urine Specific Gravity 1.009 (1.001-1.035); Urine Urobilinogen Normal (Negative); Urine WBC <1 /hpf (0 - 5); Urine pH 6.5 (5.0-8.0)
[2023-02-11] MEDS: ATORVASTATIN 20 MG TAB PO SCH (21:39)
[2023-02-12] MEDS: ACCU-CHEK COMFORT CURVE STRIP VI SCH ×3 (00:58→12:00)
[2023-02-12] MEDS: InsuLIN REG 1unit/0.01ml Soln (100units/ml) SC SCH ×3 (01:07→12:00)
[2023-02-12] MEDS: HYDROcodone-ACET 5/325MG TAB PO PRN ×3 (03:53→16:47)
[2023-02-12 05:00] VITALS: BP 142/70; PULSE 89; RESP 18; TEMP 98.1; O2SAT 94
[2023-02-12 05:40] LABS: Anion Gap 7 (5-15); Carbon Dioxide 24 mmol/L (20-30); Chloride 106 mmol/L (98-107); Potassium 3.5 mmol/L (3.5-5.1); Sodium 137 mmol/L (136-145)
[2023-02-12 05:41] LABS: Calcium 8.2 mg/dL (8.7-10.4)
[2023-02-12] MEDS: metroNIDAZOLE 500MG/100ML 100 ML IV SCH ×2 (05:42→14:00)
[2023-02-12] MEDS: SODIUM CHLOR 0.9% PF (SALINE LOCK) 10ML VIAL/SYR IV SCH ×2 (05:42→14:00)
[2023-02-12 05:46] LABS: BUN/Creatinine Ratio 6.3 (10.0-20.0); Blood Urea Nitrogen 5 mg/dL (9-23); Glucose 163 mg/dL (74-106)
[2023-02-12] MEDS: LEVOTHYROXINE SODIUM 100 MCG TAB PO SCH (06:32)
[2023-02-12 08:00] VITALS: PULSE 102; PULSE 94; RESP 18; O2SAT 97
[2023-02-12 09:13] VITALS: BP 108/73; PULSE 94; RESP 18; TEMP 98.3; O2SAT 97
[2023-02-12 09:39] VITALS: BP 134/84; PULSE 81; RESP 19; TEMP 98.1; O2SAT 96
[2023-02-12] MEDS: amLODIPine BESYLATE 5 MG TAB PO SCH (09:59)
[2023-02-12] MEDS: METOPROLOL SUCCINATE XL 50 MG TAB PO SCH (09:59)
[2023-02-12] MEDS: CEFTRIAXONE SODIUM 2 GM in D5W 5% 100 ML IV SCH (10:00)
[2023-02-12] MEDS: ENOXAPARIN SOD 40 MG/0.4 ML SYRINGE SC SCH (10:00)
[2023-02-12] MEDS: PANTOPRAZOLE 40 MG/10 ML VIAL INJ IV SCH (10:00)
[2023-02-12] MEDS: ONDANSETRON HCL 4 MG/2 ML VIAL IV PRN (11:38)
[2023-02-12 12:35] LABS: COVID19 ANTIGEN SOFIA FIA POSITIVE (NEGATIVE)
[2023-02-12] MEDS ORDERED: POTASSIUM CHL 20 Meq TABLET PO ONE (13:30)
[2023-02-12] MEDS ORDERED: METR375C PO (14:15)
[2023-02-12] MEDS ORDERED: CEPH250C PO (14:15)
[2023-02-12 15:09] VITALS: BP 147/85; PULSE 84; RESP 19; TEMP 98.8; O2SAT 97
== END 2023-02-12 16:20 | disposition home health service (06) | DRG 871 ==
LOC: EDBD 12:57 → ER 12:57 → TELE 17:53 → TELE-CENTR 02-09 22:38 → CENTRAL 02-11 10:18
PROVIDERS: ADMIT Internal Medicine; ATTEND Internal Medicine
DX: A41.89 Other specified sepsis (principal); U07.1 COVID-19; A09 Infectious gastroenteritis and colitis, unspecified; K55.9 Vascular disorder of intestine, unspecified; E03.9 Hypothyroidism, unspecified; E11.65 Type 2 diabetes mellitus with hyperglycemia; I16.0 Hypertensive urgency; I10 Essential (primary) hypertension; Z82.49 Family history of ischemic heart disease and other diseases of the circulatory system; Z82.62 Family history of osteoporosis; Z88.1 Allergy status to other antibiotic agents; Z88.2 Allergy status to sulfonamides; Z90.49 Acquired absence of other specified parts of digestive tract
CPT/HCPCS: 36415; 71045; 74176; 80048; 80053; 81001; 82043; 82962; 83036; 83605; 83735; 84100; 84443; 84484; 85025; 85048; 85610; 85730; 87040; 87045; 87426; 87427; 87493; 87804; 93005; 93306; 96365; 96368; 96375; C9113; G0378; J0696; J1815; J2405; J3490; J7060

== ENCOUNTER 2023-07-19 13:25 | Inpatient (IN) | payer MEDICARE, MEDICAID ==
[~2023-07-19] VITALS: Ht 152.4 cm; Wt 78.5 kg
[~2023-07-19 13:25] MED LIST changes: -AMOX875T4 PO; +CEPH250C PO; -CEPH500C PO; -DOXY1CAP57 PO; -FOLI-119 OR; +FOLI-119 PO; -HYDR-1421 OR; +METR375C PO; -PRED5PAK8
[2023-07-19 14:28] LABS: Basophils # (auto) 0 10 ^3/uL (0-0.2); Basophils % (auto) 0.6 % (0.0-2.0); Eosinophils # (auto) 0 10 ^3/uL (0-0.8); Eosinophils % (auto) 0.4 % (0.0-7.0); Hematocrit 36.5 % (36.0-46.0); Hemoglobin 11.7 g/dL (12.2-16.2); Lymphocytes # (auto) 0.9 10 ^3/uL (0.4-5.4); Lymphocytes % (auto) 10.4 % (10.0-50.0); Mean Corpuscular Hemoglobin 28.3 pg (28.0-32.0); Mean Corpuscular Volume 88.4 fL (80.0-100.0); Monocytes # (auto) 0.3 10 ^3/uL (0-1.3); Monocytes % (auto) 3.7 % (0.0-12.0); Neutrophils # (auto) 7.1 10 ^3/uL (1.6-8.6); Neutrophils % (auto) 84.9 % (37.0-80.0); Red Blood Cells 4.13 10^6/uL (4.0-5.20); Red Cell Distribution Width 16.1 % (11.8-14.3); White Blood Cell 8.4 10^3/uL (4.4-10.8)
[2023-07-19 14:48] LABS: Alanine Aminotransferase 16 U/L (7-40); Albumin 4.2 g/dL (3.2-4.8); Alkaline Phosphatase 61 U/L (46-116); Anion Gap 9 (5-15); Aspartate Aminotransferase 17 U/L (13-40); Blood Urea Nitrogen 27 mg/dL (9-23); Calcium 10.2 mg/dL (8.7-10.4); Carbon Dioxide 24 mmol/L (20-30); Chloride 101 mmol/L (98-107); Potassium 4.3 mmol/L (3.5-5.1); Sodium 134 mmol/L (136-145)
[2023-07-19 14:49] LABS: Bilirubin, Total 0.5 mg/dL (0.2-1.0); Total Protein 6.9 g/dL (5.7-8.2)
[2023-07-19 14:53] LABS: Glucose 413 mg/dL (74-106)
[2023-07-19 17:36] LABS: Urine Bacteria None Seen /hpf (None Seen)
[2023-07-19 17:57] LABS: Urine Blood Negative /uL (Negative); Urine Clarity Turbid (Clear); Urine Color Yellow (Yellow); Urine Hyaline Cast FEW /lpf (0 - 2); Urine Protein, UAD Negative (Negative); Urine Specific Gravity 1.022 (1.001-1.035); Urine Urobilinogen Normal (Negative); Urine WBC 23 /hpf (0 - 5); Urine pH 5.5 (5.0-9.0)
[2023-07-19] MEDS ORDERED: DEXTROSE (50%) 50ML SYRG IV PRN ×2 (19:15→19:30)
[2023-07-19 19:29] LABS: Triglycerides 449 mg/dL (< 150)
[2023-07-19] MEDS ORDERED: ACETAMINOPHEN 325 MG TAB PO PRN (19:30)
[2023-07-19 19:31] LABS: HDL Cholesterol 52 mg/dL (40-59)
[2023-07-19 19:32] LABS: Cholesterol 186 mg/dL (< 200)
[2023-07-19] MEDS: InsuLIN REG 1unit/0.01ml Soln (100units/ml) IV ONE (20:47)
[2023-07-19] MEDS: SODIUM CHLORIDE 0.9% 500 ML IV ONE (20:48)
[2023-07-19] MEDS ORDERED: cefTRIAXone 1GM/50ML D5W 50 ML IV ONE (20:53)
[2023-07-19] MEDS: KETOROLAC TROMETH 30 MG/ML 1ML VIAL IV ONE (20:56)
[2023-07-19] MEDS: cefTRIAXone 1GM/50ML D5W 50 ML IV ONE (20:56)
[2023-07-19] MEDS: SODIUM CHLORIDE 0.9% 1,000 ML IV ONE (20:57)
[2023-07-19] MEDS ORDERED: ACCU-CHEK COMFORT CURVE STRIP VI SCH (22:00)
[2023-07-19] MEDS ORDERED: InsuLIN REG 1unit/0.01ml Soln (100units/ml) SC SCH (22:00)
[2023-07-19] MEDS: ACCU-CHEK COMFORT CURVE STRIP VI SCH (22:09)
[2023-07-19] MEDS: SODIUM CHLORIDE 0.9% 1,000 ML IV SCH (22:09)
[2023-07-19] MEDS: ATORVASTATIN 20 MG TAB PO SCH (22:20)
[2023-07-19] MEDS: InsuLIN REG 1unit/0.01ml Soln (100units/ml) SC SCH (22:21)
[2023-07-19 23:00] VITALS: PULSE 68; RESP 16; O2SAT 98
[2023-07-20] VITALS (8 sets, daily range): BP systolic 117–159; BP diastolic 45–63; PULSE 72–100; RESP 16–20; TEMP 97.3–98.2; O2SAT 96–99
[2023-07-20] MEDS ORDERED: GLIM2TAB94 PO (04:43)
[2023-07-20] MEDS ORDERED: LEVO75TA6 PO (04:43)
[2023-07-20] MEDS ORDERED: METO1TAB9 PO (04:43)
[2023-07-20] MEDS ORDERED: PRE5T PO (04:43)
[2023-07-20] MEDS ORDERED: AMLO1TAB22 PO (04:43)
[2023-07-20] MEDS ORDERED: SITA100T7 PO (04:43)
[2023-07-20] MEDS ORDERED: DICL1GEL73 TOP (04:43)
[2023-07-20] MEDS ORDERED: LOSA-535 PO (04:43)
[2023-07-20] MEDS ORDERED: ALBU108A5 INH (04:43)
[2023-07-20] MEDS ORDERED: LOS25T PO (04:43)
[2023-07-20] MEDS ORDERED: OMEP1CAP70 PO (04:43)
[2023-07-20] MEDS ORDERED: TRIO1TP TOP (04:43)
[2023-07-20] MEDS ORDERED: MET500T PO (04:43)
[2023-07-20] MEDS ORDERED: CEPH250C2 PO (04:43)
[2023-07-20] MEDS: HYDROcodone-ACET 5/325MG TAB PO PRN (06:16)
[2023-07-20 06:29] LABS: Alanine Aminotransferase 10 U/L (7-40); Albumin 3.8 g/dL (3.2-4.8); Alkaline Phosphatase 43 U/L (46-116); Anion Gap 8 (5-15); Aspartate Aminotransferase 19 U/L (13-40); BUN/Creatinine Ratio 20.4 (10.0-20.0); Blood Urea Nitrogen 20 mg/dL (9-23); Calcium 9.5 mg/dL (8.5-10.1); Carbon Dioxide 21 mmol/L (20-30); Chloride 110 mmol/L (98-107); Glucose 129 mg/dL (74-106); Potassium 4.1 mmol/L (3.5-5.1); Sodium 139 mmol/L (136-145)
[2023-07-20 06:30] LABS: Bilirubin, Total 0.4 mg/dL (0.2-1.0)
[2023-07-20] MEDS: LEVOTHYROXINE SODIUM 25 MCG TAB ONE (06:36)
[2023-07-20 06:37] LABS: Basophils # (auto) 0.1 10 ^3/uL (0-0.2); Basophils % (auto) 0.9 % (0.0-2.0); Eosinophils # (auto) 0.2 10 ^3/uL (0-0.8); Eosinophils % (auto) 3.4 % (0.0-7.0); Hematocrit 33.1 % (36.0-46.0); Hemoglobin 10.7 g/dL (12.2-16.2); Lymphocytes # (auto) 1.8 10 ^3/uL (0.4-5.4); Lymphocytes % (auto) 25.4 % (10.0-50.0); Mean Corpuscular Hemoglobin 28.3 pg (28.0-32.0); Mean Corpuscular Hgb Conc. 32.2 g/dL (32.0-36.0); Mean Corpuscular Volume 88.1 fL (80.0-100.0); Monocytes # (auto) 0.7 10 ^3/uL (0-1.3); Monocytes % (auto) 9.9 % (0.0-12.0); Neutrophils # (auto) 4.2 10 ^3/uL (1.6-8.6); Neutrophils % (auto) 60.4 % (37.0-80.0); Nucleated Red Blood Cells % 0.2 %; Red Blood Cells 3.76 10^6/uL (4.0-5.20)
[2023-07-20] MEDS: LEVOTHYROXINE SODIUM 100 MCG TAB PO SCH (06:39)
[2023-07-20] MEDS: InsuLIN REG 1unit/0.01ml Soln (100units/ml) SC SCH (06:43)
[2023-07-20] MEDS: HYDROcodone-ACET 5/325MG TAB ONE (07:10)
[2023-07-20] MEDS: ATORVASTATIN 20 MG TAB ONE (09:01)
[2023-07-20] MEDS: amLODIPine BESYLATE 5 MG TAB ONE (09:01)
[2023-07-20] MEDS: cefTRIAXone 1GM/50ML D5W 50 ML IV ONE (09:01)
[2023-07-20] MEDS: ENOXAPARIN SOD 40 MG/0.4 ML SYRINGE SC ONE (09:01)
[2023-07-20] MEDS: hydroCHLOROthiazide 25 MG TAB ONE (09:01)
[2023-07-20] MEDS: cefTRIAXone 1GM/50ML D5W 50 ML IV SCH (09:01)
[2023-07-20] MEDS: LEVOTHYROXINE SODIUM 100 MCG TAB ONE (09:01)
[2023-07-20] MEDS: KETOROLAC TROMETH 30 MG/ML 1ML VIAL ONE (09:01)
[2023-07-20] MEDS: ENOXAPARIN SOD 40 MG/0.4 ML SYRINGE SC SCH (09:02)
[2023-07-20] MEDS: amLODIPine BESYLATE 5 MG TAB PO SCH (09:03)
[2023-07-20] MEDS: hydroCHLOROthiazide 25 MG TAB PO SCH (09:03)
[2023-07-20] MEDS ORDERED: MORPHINE SULFATE INJ 2 MG/ml SYRG IV PRN (11:30)
[2023-07-20] MEDS: predniSONE 5 MG TAB PO ONE (13:27)
[2023-07-20] MEDS: LOSARTAN POTASSIUM 50 MG TAB PO ONE (13:29)
[2023-07-20] MEDS: metroNIDAZOLE 500MG/100ML 100 ML IV SCH (13:32)
[2023-07-21] VITALS (8 sets, daily range): BP systolic 133–155; BP diastolic 53–76; PULSE 78–115; RESP 18–21; TEMP 97.8–98.5; O2SAT 95–99
[2023-07-21 06:57] LABS: Basophils # (auto) 0 10 ^3/uL (0-0.2); Basophils % (auto) 0.8 % (0.0-2.0); Eosinophils # (auto) 0.1 10 ^3/uL (0-0.8); Eosinophils % (auto) 2.3 % (0.0-7.0); Hematocrit 31.7 % (36.0-46.0); Hemoglobin 10.3 g/dL (12.2-16.2); Lymphocytes # (auto) 1.6 10 ^3/uL (0.4-5.4); Lymphocytes % (auto) 26.8 % (10.0-50.0); Mean Corpuscular Hemoglobin 28.1 pg (28.0-32.0); Mean Corpuscular Hgb Conc. 32.6 g/dL (32.0-36.0); Mean Corpuscular Volume 86.2 fL (80.0-100.0); Monocytes # (auto) 0.6 10 ^3/uL (0-1.3); Monocytes % (auto) 9.5 % (0.0-12.0); Neutrophils # (auto) 3.7 10 ^3/uL (1.6-8.6); Neutrophils % (auto) 60.6 % (37.0-80.0); Nucleated Red Blood Cells % 0.1 %; Red Blood Cells 3.68 10^6/uL (4.0-5.20); Red Cell Distribution Width 15.8 % (11.8-14.3); White Blood Cell 6.1 10^3/uL (4.4-10.8)
[2023-07-21 07:09] LABS: Anion Gap 6 (5-15); Calcium 9.7 mg/dL (8.5-10.1); Carbon Dioxide 25 mmol/L (20-30); Chloride 109 mmol/L (98-107); Potassium 3.8 mmol/L (3.5-5.1); Sodium 140 mmol/L (136-145)
[2023-07-21 07:15] LABS: Glucose 108 mg/dL (74-106)
[2023-07-21 07:16] LABS: BUN/Creatinine Ratio 14.3 (10.0-20.0); Blood Urea Nitrogen 11 mg/dL (9-23)
[2023-07-21] MEDS: predniSONE 5 MG TAB PO SCH (09:23)
[2023-07-21] MEDS: LOSARTAN POTASSIUM 50 MG TAB PO SCH (09:23)
[2023-07-21] MEDS ORDERED: TRIA75TA55 PO (11:46)
[2023-07-21] MEDS ORDERED: ERGO1CAP12 PO (11:51)
[2023-07-21] MEDS ORDERED: CYCL-839 PO (11:52)
[2023-07-21] MEDS ORDERED: HYDR-4798 PO (11:52)
[2023-07-21] MEDS: PANTOPRAZOLE 40 MG TAB PO ONE (13:06)
[2023-07-21] MEDS: methylPREDNISolone SOD SUCC 40 MG/ML VL IV ONE (13:07)
[2023-07-22 01:00] VITALS: BP 126/69; PULSE 108; RESP 17; TEMP 98.5; O2SAT 95
[2023-07-22 05:00] VITALS: BP 133/68; PULSE 106; RESP 16; TEMP 98.4; O2SAT 96
[2023-07-22 08:05] VITALS: BP 145/73; PULSE 108; RESP 18; TEMP 98.5; O2SAT 98
[2023-07-22 08:51] VITALS: BP 139/69; PULSE 104; RESP 16; TEMP 97.9; O2SAT 95
[2023-07-22] MEDS: predniSONE 5 MG TAB PO SCH (09:23)
[2023-07-22] MEDS: PANTOPRAZOLE 40 MG TAB PO SCH (09:23)
[2023-07-22 12:19] VITALS: BP 152/72; PULSE 104; RESP 16; TEMP 98.8; O2SAT 96
[2023-07-22] MEDS ORDERED: PRED20TA2 PO (13:51)
[2023-07-22 14:18] VITALS: BP 132/69; PULSE 104; RESP 16; TEMP 97.9; O2SAT 95
== END 2023-07-22 15:55 | disposition home or self-care (01) | DRG 545 ==
LOC: ER 13:25 → WEST WING 19:22 → OVERFLOW 19:22 → WEST WING 07-20 02:30
PROVIDERS: ADMIT Nurse Practitioner Family; ATTEND Internal Medicine
DX: M06.9 Rheumatoid arthritis, unspecified (principal); N17.0 Acute kidney failure with tubular necrosis; E11.65 Type 2 diabetes mellitus with hyperglycemia; E66.01 Morbid (severe) obesity due to excess calories; I10 Essential (primary) hypertension; E03.9 Hypothyroidism, unspecified; E78.5 Hyperlipidemia, unspecified; D64.9 Anemia, unspecified; Z68.33 Body mass index [BMI] 33.0-33.9, adult; Z96.653 Presence of artificial knee joint, bilateral; Z90.49 Acquired absence of other specified parts of digestive tract; Z79.4 Long term (current) use of insulin
CPT/HCPCS: 36415; 74176; 80048; 80053; 80061; 81001; 82010; 82962; 83036; 84443; 85025; 87086; 93005; 97110; 97116; 97163; 97530; G0378; J1815; J1885; J3490

== ENCOUNTER 2023-08-25 17:01 | Emergency (ER) | payer MEDICARE, MEDICAID ==
[~2023-08-25] VITALS: Ht 160 cm; Wt 73.9 kg
[~2023-08-25 17:01] MED LIST changes: +ALBU108A5 INH; +AMLO1TAB22 PO; -AMLO1TAB23 PO; -CEPH250C PO; +CEPH250C2 PO; -CHOL20007 PO; +CYCL-839 PO; +DICL1GEL73 TOP; +ERGO1CAP12 PO; +GLIM2TAB94 PO; +HYDR-4798 PO; -LEVO100T81; +LEVO75TA6 PO; +LOSA-535 PO; +MET500T PO; -METO-289; +METO1TAB9 PO; +OMEP1CAP70 PO; -PANT1INJ3 PO; +PRE5T PO; +PRED20TA2 PO; +SITA100T7 PO; -TRIA0.02 TOP; +TRIA75TA55 PO; -TRIAMTERENE HCTZ; +TRIO1TP TOP
[2023-08-25 17:40] VITALS: BP 169/76; PULSE 82; RESP 17; TEMP 99; O2SAT 96
[2023-08-25 17:54] LABS: Urine Bacteria None Seen /hpf (None Seen)
[2023-08-25 18:24] LABS: Basophils # (auto) 0.1 10 ^3/uL (0-0.2); Basophils % (auto) 0.6 % (0.0-2.0); Eosinophils # (auto) 0 10 ^3/uL (0-0.8); Eosinophils % (auto) 0.5 % (0.0-7.0); Hematocrit 36.7 % (36.0-46.0); Hemoglobin 11.8 g/dL (12.2-16.2); Lymphocytes # (auto) 1.2 10 ^3/uL (0.4-5.4); Lymphocytes % (auto) 14.7 % (10.0-50.0); Mean Corpuscular Hemoglobin 28.4 pg (28.0-32.0); Mean Corpuscular Hgb Conc. 32.1 g/dL (32.0-36.0); Mean Corpuscular Volume 88.5 fL (80.0-100.0); Monocytes # (auto) 0.4 10 ^3/uL (0-1.3); Monocytes % (auto) 4.9 % (0.0-12.0); Neutrophils # (auto) 6.6 10 ^3/uL (1.6-8.6); Neutrophils % (auto) 79.3 % (37.0-80.0); Nucleated Red Blood Cells % 0.1 %; Red Blood Cells 4.15 10^6/uL (4.0-5.20); Red Cell Distribution Width 15.2 % (11.8-14.3); White Blood Cell 8.3 10^3/uL (4.4-10.8)
[2023-08-25 18:44] LABS: Alanine Aminotransferase 21 U/L (7-40); Albumin 4.4 g/dL (3.2-4.8); Alkaline Phosphatase 69 U/L (46-116); Anion Gap 11 (5-15); Aspartate Aminotransferase 26 U/L (13-40); BUN/Creatinine Ratio 22.3 (10.0-20.0); Bilirubin, Total 0.4 mg/dL (0.2-1.0); Blood Urea Nitrogen 25 mg/dL (9-23); Calcium 9.9 mg/dL (8.7-10.4); Carbon Dioxide 20 mmol/L (20-30); Chloride 101 mmol/L (98-107); Glucose 342 mg/dL (74-106); Potassium 4.7 mmol/L (3.5-5.1); Sodium 132 mmol/L (136-145); Total Protein 7.1 g/dL (5.7-8.2)
[2023-08-25 18:45] LABS: Urine Blood Negative /uL (Negative); Urine Clarity Clear (Clear); Urine Color Light-Yellow (Yellow); Urine Protein, UAD Negative (Negative); Urine Specific Gravity 1.017 (1.001-1.035); Urine Urobilinogen Normal (Negative); Urine WBC 3 /hpf (0 - 5); Urine pH 6.5 (5.0-9.0)
[2023-08-25] MEDS ORDERED: CIPR-173 PO (18:52)
== END 2023-08-25 21:31 | disposition home or self-care (01) ==
LOC: ER 17:01
DX: N39.0 Urinary tract infection, site not specified (principal); I10 Essential (primary) hypertension; E11.9 Type 2 diabetes mellitus without complications; Z98.890 Other specified postprocedural states; Z88.8 Allergy status to other drugs, medicaments and biological substances; Z79.899 Other long term (current) drug therapy
CPT/HCPCS: 36415; 80053; 81001; 85025

== ENCOUNTER → 2024-01-25 | Outpatient (CLI) | payer MEDICARE, MEDICAID ==
[~2024-01-25] MED LIST changes: +CIPR-173 PO
[2024-01-25 09:09] LABS: Urine Bacteria None Seen /hpf (None Seen)
[2024-01-25 09:19] LABS: Basophils # (auto) 0.1 10 ^3/uL (0-0.2); Basophils % (auto) 0.9 % (0.0-2.0); Eosinophils # (auto) 0.2 10 ^3/uL (0-0.8); Eosinophils % (auto) 2.5 % (0.0-7.0); Hematocrit 35.3 % (36.0-46.0); Hemoglobin 11.7 g/dL (12.2-16.2); Lymphocytes # (auto) 2.1 10 ^3/uL (0.4-5.4); Mean Corpuscular Hemoglobin 28.6 pg (28.0-32.0); Mean Corpuscular Hgb Conc. 33.1 g/dL (32.0-36.0); Mean Corpuscular Volume 86.5 fL (80.0-100.0); Monocytes # (auto) 0.7 10 ^3/uL (0-1.3); Monocytes % (auto) 8.6 % (0.0-12.0); Nucleated Red Blood Cells % 0.1 %; Platelet Count (auto) 230 10^3/uL (140-450); Red Blood Cells 4.09 10^6/uL (4.0-5.20); White Blood Cell 8.1 10^3/uL (4.4-10.8)
[2024-01-25 09:32] LABS: Urine Blood Negative /uL (Negative); Urine Clarity Turbid (Clear); Urine Color Light-Yellow (Yellow); Urine Protein, UAD TRACE (Negative); Urine Specific Gravity 1.021 (1.001-1.035); Urine Urobilinogen Normal (Negative); Urine WBC 18 /hpf (0 - 5); Urine pH 5.5 (5.0-9.0)
[2024-01-25 10:18] LABS: Alanine Aminotransferase 12 U/L (7-40); Albumin 4.2 g/dL (3.2-4.8); Alkaline Phosphatase 48 U/L (46-116); Anion Gap 8 (5-15); Aspartate Aminotransferase 9 U/L (13-40); Blood Urea Nitrogen 25 mg/dL (9-23); Calcium 10.2 mg/dL (8.7-10.4); Carbon Dioxide 25 mmol/L (20-31); Chloride 106 mmol/L (98-107); Glucose 124 mg/dL (74-106); Potassium 3.8 mmol/L (3.5-5.1); Sodium 139 mmol/L (136-145)
[2024-01-25 10:19] LABS: Bilirubin, Total 0.6 mg/dL (0.2-1.0); Total Protein 6.8 g/dL (5.7-8.2)
== END | disposition home or self-care (01) ==
LOC: LAB 08:52
PROVIDERS: ATTEND Student in an Organized Health Care Education/Training Program
DX: I10 Essential (primary) hypertension (principal); E11.9 Type 2 diabetes mellitus without complications; E03.8 Other specified hypothyroidism
CPT/HCPCS: 36415; 80053; 81001; 83036; 84439; 84443; 85025

== ENCOUNTER 2024-02-14 13:56 | Inpatient (IN) | payer MEDICARE, MEDICAID ==
[~2024-02-14] VITALS: Ht 304.8 cm; Wt 74.5 kg
[~2024-02-14 13:56] MED LIST changes: +CIPR500T4 PO; +MIRA25TA PO
--- NOTE | 2024-02-14 14:42 | ED.PDOC ---
General HPI Comments A 78 year old female presents to the ED with a chief complaint of pelvic pain onset 5 days. Patient states she was seen in Urgent Care 5 days ago, was diagnosed with UTI and was prescribed Cipro. Patient states her pain has not improved and noticed it radiates to her lower back and rates it an 8/10. She has past medical history of HTN and DM. Denies dysuria, hematuria, fever, chills. No other symptoms or modifying factors present at this time. Chief Complaint: Abdominal Pain Time Seen by MD: 14:33 Primary Care Provider: ERIC Reviewed notes: Nurses Notes, Medications, Allergies Allergies: Coded Allergies: Levofloxacin (Verified Allergy, Unknown, 02/08/23) Magnesium Salicylate (Verified Allergy, Unknown, 02/08/23) Sulfa Drugs (Verified Allergy, Unknown, 02/08/23) Home Meds Active Scripts Ciprofloxacin Hcl (Cipro) 500 Mg Tab, 1 TAB PO BID, #14 TAB Prov:DIALLO SALAZAR MD 08/25/23 Prednisone (Prednisone) 20 Mg Tab, 20 MG PO QAM for 30 Days, #60 MG Prov:PITER TOTH MD 07/22/23 Metronidazole (Flagyl) 375 Mg Cap, 500 MG PO TID for 6 Days, #18 CAP Prov:MARGARETTE RENAE MD 02/12/23 Reported Medications Cyclobenzaprine Hcl (Cyclobenzaprine Hcl) 10 Mg Tab, 5 MG PO QHSP 07/21/23 Hydrocodone-Acetaminophen (Hydrocodone Bitartrate/AC 10-325 mg) 1 Tab Tab, 1 TAB PO Q6HR 07/21/23 Ergocalciferol (Vitamin D) 50,000 Unit Cap, 1 CAP PO QWEEKLY 07/21/23 Triamterene & Hydrochlorothiaz (Maxzide) 1 Tab Tab, 1 TAB PO DAILY [Triamterene & Hydrochlorothiazide 37.5/25 mg] 07/21/23 Cephalexin Base (Cephalexin) 250 Mg Cap, 2 CAP PO TID 07/20/23 Metronidazole (Metronidazole) 500 Mg Tab, 1 TAB PO TID 07/20/23 Triamcinolone Acetonide (Kenalog) 1 Applic Ap, 1 APPLIC TOP 07/20/23 Losartan Potassium (Losartan Potassium) 100 Mg Tab, 1 TAB PO DAILY 07/20/23 Glimepiride (Glimepiride) 2 Mg Tab, 1 TAB PO BID 07/20/23 Omeprazole (Omeprazole Dr) 20 Mg Cap, 1 CAP PO DAILY 07/20/23 Metoprolol Succinate (Metoprolol Succinate Er) 100 Mg Tab, 1 TAB PO BID 07/20/23 Levothyroxine Sodium (Levothyroxine Sodium) 75 Mcg Tab, 1 TAB PO DAILY 07/20/23 Amlodipine Besylate (Amlodipine Besylate) 5 Mg Tab, 1 TAB PO DAILY 07/20/23 Diclofenac Sodium (Topical) (Diclofenac Sodium) 1 % Gel, TOP 07/20/23 Albuterol Sulfate (Albuterol Sulfate Hfa) 108 Mcg/Act Aer, INH 07/20/23 Sitagliptin Phosphate (Januvia) 100 Mg Tab, 1 TAB PO DAILY 07/20/23 Prednisone (Prednisone) 5 Mg Tab, 1 TAB PO DAILY 07/20/23 Tofacitinib Citrate (Xeljanz) 1 Mg/Ml Ludivina, 5 MG PO BID, ML 11/05/20 Metformin Hydrochloride (Metformin Hcl) 500 Mg Tab, 500 MG PO BID, TAB 11/05/20 Atorvastatin Calcium (Lipitor) 20 Mg Tab, 1 TAB PO DAILY 11/05/20 Albuterol Sulfate (VENTOLIN MDI) 90 Mcg Ih, 90 MCG IN, INH 11/05/20 Hydrochlorothiazide (Hydrochlorothiazide) 12.5 Mg Cap, 12.5 MG OR DAILY 11/24/11 Teriparatide (Recombinant) (Forteo) 600/2.4 Ludivina, 1 2.4 SC WEEKLY 11/20/11 [Embril] No Conflict Check, 50 MG WEEKLY 11/20/11 Folic Acid (Folic Acid) 1 Mg Tab, 1 TAB PO DAILY 09/17/09 Information Source: Patient Mode of Arrival: Ambulatory Severity: Moderate Timing: Days Duration: Since onset Prehospital treatment: None History of: UTI Location: Suprapubic Modifying factors: None associated signs and symptoms: Back Pain Past Medical History PAST MEDICAL HISTORY: DM, HTN, Thyroid Surgical History: Appendectomy, Cholecystectomy WOOL BU[employer]ER History: Denies all WOOL BUYER Hx Family History Family History: Reviewed,noncontributory to illness Social History Smoker: Non-Smoker Alcohol: Rarely Drugs: Denies Drug Use Lives In: Home Constitutional: denies: chills, diaphoresis, fatigue, fever, malaise, sweats, weakness, others EENTM: denies: blurred vision, double vision, ear bleeding, ear discharge, ear drainage, ear pain, ear ringing, eye pain, eye redness, hearing loss, mouth pain, mouth swelling, nasal discharge, nose bleeding, nose congestion, nose pain, photophobia, tearing, throat pain, throat swelling, voice changes, others Respiratory: denies: cough, hemoptysis, orthopnea, SOB at rest, shortness of breath, SOB with excertion, stridor, wheezing, others Cardiovascular: denies: chest pain, dizzy spells, diaphoresis, Dyspnea on exertion, edema, irregular heart beat, left arm pain, lightheadedness, palpitations, PND, syncope, others Gastrointestinal: denies: abdomen distended, abdominal pain, blood streaked bowels, constipated, diarrhea, dysphagia, difficulty swallowing, hematemesis, melena, nausea, poor appetite, poor fluid intake, rectal bleeding, rectal pain, vomiting, others Genitourinary: reports: pain (suprapubic pain); denies: abnormal vagina bleeding, burning, dyspareunia, dysuria, flank pain, frequency, hematuria, incontinence, , vagina discharge, urgency, others Neurological: denies: dizziness, fainting, headache, left sided numbness, left sided weakness, numbness, paresthesia, pre-existing deficit, right sided numbness, right sided weakness, seizure, speech problems, tingling, tremors, weakness, others Musculoskeletal: reports: back pain; denies: gout, joint pain, joint swelling, muscle pain, muscle stiffness, neck pain, others Integumetry: denies: bruises, change in color, change in hair/nails, dryness, laceration, lesions, lumps, rash, wounds, others Allergic/Immunocompromised: denies: Difficulty Healing, Frequent Infections, Hives, Itching, others Hematologic/Lymphatic: denies: anemia, blood clots, easy bleeding, easy bruisin g, swollen glands, others Endocrine: denies: excessive hunger, excessive sweating, excessive thirst, excessive urination, flushing, intolerance to cold, intolerance to heat, unexplained weight gain, unexplained weight loss, others Psychiatric: denies: anxiety, bipolar disorder, depression, hopeless, panic disorder, schizophrenia, sleepless, suicidal, others All Other Systems: Reviewed and Negative Physical Exam General Appearance: Moderate Distress HEENT: Normal ENT Inspection, Pharynx Normal, TMs Normal Neck: Full Range of Motion, Non-Tender, Normal, Normal Inspection Respiratory: Chest Non-Tender, Lungs Clear, No Accessory Muscle Use, No Respiratory Distress, Normal Breath Sounds Cardiovascular: No Edema, No JVD, No Murmur, No Gallop, Normal Peripheral Pulses, Regular Rate/Rhythm Breast Exam: Deferred Gastrointestinal: No Organomegaly, No Pulsatile Mass, Normal Bowel Sounds, Soft, Suprapubic, Tenderness Genitalia: Deferred Pelvic: Deferred Rectal: Deferred Extremities: No calf tenderness, Normal capillary refill, Normal inspection, Normal range of motion, Non-tender, No pedal edema Musculoskeletal : Apperance: Normal Neurologic: Alert, senior service technician II-XII nml as Tested, No Motor Deficits, Normal Affect, Normal Mood, No Sensory Deficits Cerebellar Function: Normal Reflexes: Normal Skin: Dry, Normal Color, Warm Lymphatic: No Adenopathy Was a procedure done? Was a procedure done?: No Differential Diagnosis Kidney stone (Female): Musculoskeletal pain, Renal failure, Strain, Urolithiasis X-Ray, Labs, Meds, VS Vital Signs Date Time Temp Pulse Resp B/P (MAP) Pulse Ox O2 Delivery O2 Flow Rate FiO2 02/14/24 18:59 97.4 96 18 169/81 (110) 97 97.4 02/14/24 16:42 97.9 93 17 151/73 (99) 96 97.9 02/14/24 16:15 93 17 96 Room Air* 0 21 02/14/24 14:04 98.0 110 17 170/68 (102) 97 Lab Test 02/14/24 16:08 02/14/24 14:36 Range/Units White Blood Count 9.0 4.4-10.8 10^3/uL Red Blood Count 4.41 4.0-5.20 10^6/uL Hemoglobin 12.5 12.2-16.2 g/dL Hematocrit 38.6 36.0-46.0 % Mean Corpuscular Volume 87.5 80.0-100.0 fL Mean Corpuscular Hemoglobin 28.3 28.0-32.0 pg Mean Corpuscular Hemoglobin Concent 32.3 32.0-36.0 g/dL Red Cell Distribution Width 15.4 H 11.8-14.3 % Platelet Count 206 140-450 10^3/uL Mean Platelet Volume 7.5 6.9-10.8 fL Neutrophils (%) (Auto) 66.7 37.0-80.0 % Lymphocytes (%) (Auto) 20.3 10.0-50.0 % Monocytes (%) (Auto) 9.7 0.0-12.0 % Eosinophils (%) (Auto) 2.3 0.0-7.0 % Basophils (%) (Auto) 1.0 0.0-2.0 % Neutrophils # (Auto) 6.0 1.6-8.6 10 ^3/uL Lymphocytes # (Auto) 1.8 0.4-5.4 10 ^3/uL Monocytes # (Auto) 0.9 0-1.3 10 ^3/uL Eosinophils # (Auto) 0.2 0-0.8 10 ^3/uL Basophils # (Auto) 0.1 0-0.2 10 ^3/uL Nucleated Red Blood Cells 0.2 % Sodium Level 137 136-145 mmol/L Potassium Level 3.6 3.5-5.1 mmol/L Chloride Level 103 98-107 mmol/L Carbon Dioxide Level 26 20-31 mmol/L Anion Gap 8 5-15 Blood Urea Nitrogen 12 9-23 mg/dL Creatinine 1.19 H 0.550-1.02 mg/dL Glomerular Filtration Rate Calc 47 >90 mL/min BUN/Creatinine Ratio 10.1 10.0-20.0 Serum Glucose 228 H 74-106 mg/dL Calcium Level 10.6 H 8.7-10.4 mg/dL Total Bilirubin 0.4 0.2-1.0 mg/dL Aspartate Amino Transferase (AST) 20 13-40 U/L Alanine Aminotransferase (ALT) 15 7-40 U/L Alkaline Phosphatase 49 46-116 U/L Total Protein 7.2 5.7-8.2 g/dL Albumin 4.4 3.2-4.8 g/dL Lipase 33 12-53 U/L Urine Color Yellow Yellow Urine Clarity Cloudy H Clear Urine pH 5.5 5.0-9.0 Urine Specific [place] 1.031 1.001-1.035 Urine Protein 1+ H Negative Urine Ketones 1+ H Negative Urine Blood Trace H Negative /uL Urine Nitrite Negative Negative Urine Bilirubin Negative Negative Urine Urobilinogen Normal Negative mg/dL Urine Leukocyte Esterase 3+ Negative /uL Urine RBC 20 0 - 4 /hpf Urine WBC 60 0 - 5 /hpf Urine Squamous Epithelial Cells Mod <5 /hpf Urine Bacteria Few H None Seen /hpf Urine Hyaline Casts Mod 0 - 2 /lpf Urine Mucus Few None Seen Urine Glucose 3+ H Normal mg/dL Current Medications Medications (Trade) Dose Ordered Sig/Monse Route Start Time Stop Time Status Last Admin Ceftriaxone Sodium 50 ml @ 100 mls/hr ONCE ONCE IV 02/14/24 15:30 02/14/24 15:59 DC 02/14/24 15:30 PROCEDURE(s): ABPL - CT AB PEL WO CON-NO ORAL OR IV loskeletal: Grade 1 anterolisthesis of L4 on L5. IMPRESSION: 1. No acute abdominal or pelvic findings. Radiation optimization: All CT scans at this facility use at least one of these dose optimization techniques: Automated exposure control mA and/or kV adjustment per patient size (includes targeted exams where dose is matched to clinical indication) or iterative reconstruction. HS:Y The patient's urine test is positive for a significant UTI The CBC is within normal limits The patient was started on Rocephin 1 g IV piggyback The patient was being admitted to the hospitalist Images Reviewed?: Images reviewed and evaluated by me Time of 1ST Reevaluation: 15:03 Reevaluation 1ST: Unchanged Patient Education/Counseling: Diagnosis, Treatment, Prognosis Family Education/Counseling: No Family Present Departure 1 Departure Time of Disposition: 19:28 Impression: Primary Impression: Intractable abdominal pain Additional Impression: UTI (urinary tract infection) Qualified Codes: N30.01 - Acute cystitis with hematuria Disposition: ADMITTED INPATIENT Admit to: Med Surg Condition: Fair Critical Care Note Critical Care Time?: No Stability Stability form required: Yes Unstable for transfer: ED Physician Assesment (Clinical assesment) I personally scribed for DIALLO SALAZAR MD ([email or web address]) on 02/14/24 at 14:42. Electronically submitted by Juany Mota ([email or web address]). I personally scribed for DIALLO SALAZAR MD ([email or web address]) on 02/14/24 at 14:43. Electronically submitted by Juany Mota ([email or web address]). I personally scribed for DIALLO SALAZAR MD ([email or web address]) on 02/14/24 at 18:23. Electronically submitted by Juany Mota ([email or web address]). DIALLO SALAZAR MD Feb 14, 2024 14:42
[2024-02-14 14:50] LABS: Urine Bacteria FEW /hpf (None Seen); Urine Blood TRACE /uL (Negative); Urine Color Yellow (Yellow); Urine Hyaline Cast MOD /lpf (0 - 2); Urine Mucus FEW (None Seen); Urine Protein, UAD 1+ (Negative); Urine Specific Gravity 1.031 (1.001-1.035); Urine Urobilinogen Normal (Negative); Urine WBC 60 /hpf (0 - 5); Urine pH 5.5 (5.0-9.0)
[2024-02-14 14:52] LABS: Urine Clarity Cloudy (Clear)
[2024-02-14] MEDS: cefTRIAXone 1GM/50ML D5W 50 ML IV ONE (15:30)
[2024-02-14 16:15] VITALS: PULSE 93; RESP 17; O2SAT 96
[2024-02-14 16:30] LABS: Basophils # (auto) 0.1 10 ^3/uL (0-0.2); Eosinophils # (auto) 0.2 10 ^3/uL (0-0.8); Eosinophils % (auto) 2.3 % (0.0-7.0); Hematocrit 38.6 % (36.0-46.0); Hemoglobin 12.5 g/dL (12.2-16.2); Lymphocytes # (auto) 1.8 10 ^3/uL (0.4-5.4); Lymphocytes % (auto) 20.3 % (10.0-50.0); Mean Corpuscular Hemoglobin 28.3 pg (28.0-32.0); Mean Corpuscular Hgb Conc. 32.3 g/dL (32.0-36.0); Mean Corpuscular Volume 87.5 fL (80.0-100.0); Monocytes # (auto) 0.9 10 ^3/uL (0-1.3); Monocytes % (auto) 9.7 % (0.0-12.0); Neutrophils % (auto) 66.7 % (37.0-80.0); Nucleated Red Blood Cells % 0.2 %; Platelet Count (auto) 206 10^3/uL (140-450); Red Blood Cells 4.41 10^6/uL (4.0-5.20); Red Cell Distribution Width 15.4 % (11.8-14.3)
[2024-02-14 16:56] LABS: Alanine Aminotransferase 15 U/L (7-40); Albumin 4.4 g/dL (3.2-4.8); Alkaline Phosphatase 49 U/L (46-116); Anion Gap 8 (5-15); Aspartate Aminotransferase 20 U/L (13-40); BUN/Creatinine Ratio 10.1 (10.0-20.0); Blood Urea Nitrogen 12 mg/dL (9-23); Calcium 10.6 mg/dL (8.7-10.4); Carbon Dioxide 26 mmol/L (20-31); Chloride 103 mmol/L (98-107); Glucose 228 mg/dL (74-106); Lipase 33 U/L (12-53); Potassium 3.6 mmol/L (3.5-5.1); Sodium 137 mmol/L (136-145)
[2024-02-14 16:57] LABS: Bilirubin, Total 0.4 mg/dL (0.2-1.0); Total Protein 7.2 g/dL (5.7-8.2)
--- NOTE | 2024-02-14 17:48 | DVH ---
Exam: CT CT AB PEL WO CON-NO ORAL OR IV History: pain Comparison Study: CT CT AB PEL WO CON-NO ORAL OR IV on DOS: 07/20/23, CT CT AB PEL WO CON-NO ORAL OR I V on DOS: 02/08/23, [facility] on DOS: 02/17/22 Technique: Multidetector spiral CT of the abdomen and pelvis was performed from lung bases to pubic symphysis. Imaging was performed without IV contrast. Axial, coronal and sagittal multiplanar reform ats were obtained from the axial data set by the technologist. Radiation dose : Abdomen/Pelvis: CTDIvol 20.88 mGy, DLP 1028.61 mGy*cm. Findings: Evaluation of solid organs is limited due to lack of intravenous contrast use. Lung Bases: No acute or significant lung base finding. Normal heart size. No pleural or pericardial effusion. Liver: The liver is normal in size. No focal lesions. Gallbladder and biliary Tree: Gallbladder is surgically absent. Spleen: Unremarkable Pancreas: The pancreas is grossly normal in appearance. Adrenal Glands: Unremarkable Kidneys: Kidneys are grossly normal without calculi or hydronephrosis. Bladder: Grossly unremarkable for degree of distention. Bowel: The stomach is grossly normal in appearance. Small bowel and colon are normal in caliber and d istribution. Normal appendix is visualized in the right lower quadrant without findings of appendici tis. Ascites: Absent Lymphadenopathy: No mesenteric, retroperitoneal or periportal lymphadenopathy. Abdominal wall and Mesentery: Unremarkable. Vasculature: The visualized abdominal aorta is normal in size and caliber. There is atherosclerotic calcification of the aorta and its branches. Evaluation of abdominal and pelvic vessels is limited d ue to lack of intravenous contrast. Pelvic Organs: Obscured by artifact from right hip arthroplasty. Calcified fibroids in the uterus. Musculoskeletal: Grade 1 anterolisthesis of L4 on L5. IMPRESSION: 1. No acute abdominal or pelvic findings. Radiation optimization: All CT scans at this facility use at least one of these dose optimization eunice hniques: Automated exposure control mA and/or kV adjustment per patient size (includes targeted exams where dose is matched to clinical indication) or iterative reconstruction. HS:Y
[2024-02-14] MEDS ORDERED: ACETAMINOPHEN 325 MG TAB PO PRN (21:00)
[2024-02-14] MEDS ORDERED: ONDANSETRON HCL 4 MG/2 ML VIAL IV PRN (21:00)
[2024-02-14] MEDS ORDERED: MORPHINE SULFATE INJ 2 MG/ml SYRG IV PRN (21:00)
[2024-02-14] MEDS ORDERED: DEXTROSE (50%) 50ML SYRG IV PRN (21:00)
[2024-02-14] MEDS ORDERED: NITROGLYCERIN 0.4 MG SL TAB SL PRN (21:00)
[2024-02-14] MEDS: SODIUM CHLOR 0.9% PF (SALINE LOCK) 10ML VIAL/SYR IV SCH (21:53)
[2024-02-14] MEDS: ACCU-CHEK COMFORT CURVE STRIP VI SCH (21:53)
--- NOTE | 2024-02-14 22:14 | DVHHPRES ---
History of Present Illness Resident Creating Document: MARIA LUISA ROSARIO RESIDENT History of Present Illness SUSANA BROOKS 28 years old female with a PMH of type 2 DM, HTN, hypothyroidism, rheumatoid arthritis, osteoarthritis presented to the ED with the chief complaints of lower abdominal pain since 2 days prior to admission. For Dosepak patient went to urgent care with a urinary symptoms, diagnosed as UTI, given ciprofloxacin but patient reported there was improvement in urinary symptoms but develop increased abdominal pain in the suprapubic area, both groins which is going to back crampy in nature associated with nausea but no vomiting which prompted her to visit the ED. my assessment patient denies fever, chills, hematuria and other associated symptoms Past Medical History type 2 DM, HTN, hypothyroidism, rheumatoid arthritis, osteoarthritis Past Surgical History Both knees replacement, right hip replacement, cholecystectomy Family History: None Past Social History Lives with son. Denies smoking, alcohol and other drug abuse Review of Systems Constitutional: No: Fever, Chills, Sweats, Weakness, Malaise, Other Eyes: No: Pain, Vision change, Conjunctivae inflammation, Eyelid inflammation, Other, Redness ENT: No: Ear pain, Ear discharge, Nose pain, Nose discharge, Nose congestion, Mouth pain, Mouth swelling, Throat pain, Throat swelling, Other Respiratory: No: Cough, Dry, Shortness of breath, SOB with excertion, Wheezing, Hemoptysis, Pleuritic Pain, Sputum, Wheezing, Other Cardiovascular: No: Chest Pain, Palpitations, Orthopnea, Paroxysmal Noc. Dyspnea, Edema, Lt Headedness, Other Genitourinary: Other (Suprapubic, diffuse lower abdominal pain and back pain) Musculoskeletal: back pain Skin: No: Rash, Lesions, Jaundice, Bruising, Other Neurological: No: Weakness, Numbness, Incoordination, Change in speech, Confusion, Seizures, Other Allergies: Coded Allergies: Levofloxacin (Verified Allergy, Unknown, 02/08/23) Magnesium Salicylate (Verified Allergy, Unknown, 02/08/23) Sulfa Drugs (Verified Allergy, Unknown, 02/08/23) Medications Current Medications Medications Dose Ordered Sig/Monse Route Start Time Stop Time Status Last Admin Dose Admin Sodium Chloride 10 ml Q8HR IV 02/14/24 22:00 02/14/24 21:53 10 ML Acetaminophen 325 mg Q4HP PRN PO 02/14/24 21:00 Ondansetron HCl 4 mg Q4HP PRN IV 02/14/24 21:00 Morphine Sulfate 2 mg Q4HPRN PRN IV 02/14/24 21:00 Enoxaparin Sodium 40 mg DAILY@2100 SC 02/14/24 21:00 Nitroglycerin 0.4 mg Q5MINP PRN SL 02/14/24 21:00 Morphine Sulfate 2 mg Q30M PRN IV 02/14/24 21:00 Diagnostic Test (Pha) 1 strip ACHS 02/14/24 22:00 02/14/24 21:53 1 STRIP Insulin Human Regular HS SC 02/14/24 22:00 Insulin Human Regular AC SC 02/15/24 07:00 Dextrose 50 ml UD PRN IV 02/14/24 21:00 Exam Vital Signs Vital Signs Date Time Temp Pulse Resp B/P (MAP) Pulse Ox O2 Delivery O2 Flow Rate FiO2 02/14/24 18:59 97.4 96 18 169/81 (110) 97 97.4 02/14/24 16:15 Room Air* 0 21 Exam Pt is lying on bed General Appearance: Alert, Oriented X3, Cooperative, Not in acute distress HEENT: Atraumatic, Mucous membranes moist/pink Respiratory: Clear to auscultation, Normal air movement, No added sounds Cardiovascular: Regular rate, Normal S1, Normal S2, No murmurs Abdominal: Bilateral groin and suprapubic tenderness Extremities: Trace edema, Normal pulses, No tenderness/swelling Skin: No Significant rash, except past surgical scars Neuro: Normal speech, sensorimotor deficits none Psych/Mental Status: Mental status NL, Mood NL Nurse was there as avine during examination Labs/Xrays Labs Test 02/14/24 21:42 02/14/24 16:08 02/14/24 14:36 Range/Units POC Glucose 190 H 70-106 mg/dl White Blood Count 9.0 4.4-10.8 10^3/uL Red Blood Count 4.41 4.0-5.20 10^6/uL Hemoglobin 12.5 12.2-16.2 g/dL Hematocrit 38.6 36.0-46.0 % Mean Corpuscular Volume 87.5 80.0-100.0 fL Mean Corpuscular Hemoglobin 28.3 28.0-32.0 pg Mean Corpuscular Hemoglobin Concent 32.3 32.0-36.0 g/dL Red Cell Distribution Width 15.4 H 11.8-14.3 % Platelet Count 206 140-450 10^3/uL Mean Platelet Volume 7.5 6.9-10.8 fL Neutrophils (%) (Auto) 66.7 37.0-80.0 % Lymphocytes (%) (Auto) 20.3 10.0-50.0 % Monocytes (%) (Auto) 9.7 0.0-12.0 % Eosinophils (%) (Auto) 2.3 0.0-7.0 % Basophils (%) (Auto) 1.0 0.0-2.0 % Neutrophils # (Auto) 6.0 1.6-8.6 10 ^3/uL Lymphocytes # (Auto) 1.8 0.4-5.4 10 ^3/uL Monocytes # (Auto) 0.9 0-1.3 10 ^3/uL Eosinophils # (Auto) 0.2 0-0.8 10 ^3/uL Basophils # (Auto) 0.1 0-0.2 10 ^3/uL Nucleated Red Blood Cells 0.2 % Sodium Level 137 136-145 mmol/L Potassium Level 3.6 3.5-5.1 mmol/L Chloride Level 103 98-107 mmol/L Carbon Dioxide Level 26 20-31 mmol/L Anion Gap 8 5-15 Blood Urea Nitrogen 12 9-23 mg/dL Creatinine 1.19 H 0.550-1.02 mg/dL Glomerular Filtration Rate Calc 47 >90 mL/min BUN/Creatinine Ratio 10.1 10.0-20.0 Serum Glucose 228 H 74-106 mg/dL Calcium Level 10.6 H 8.7-10.4 mg/dL Total Bilirubin 0.4 0.2-1.0 mg/dL Aspartate Amino Transferase (AST) 20 13-40 U/L Alanine Aminotransferase (ALT) 15 7-40 U/L Alkaline Phosphatase 49 46-116 U/L Total Protein 7.2 5.7-8.2 g/dL Albumin 4.4 3.2-4.8 g/dL Lipase 33 12-53 U/L Urine Color Yellow Yellow Urine Clarity Cloudy H Clear Urine pH 5.5 5.0-9.0 Urine Specific [place] 1.031 1.001-1.035 Urine Protein 1+ H Negative Urine Ketones 1+ H Negative Urine Blood Trace H Negative /uL Urine Nitrite Negative Negative Urine Bilirubin Negative Negative Urine Urobilinogen Normal Negative mg/dL Urine Leukocyte Esterase 3+ Negative /uL Urine RBC 20 0 - 4 /hpf Urine WBC 60 0 - 5 /hpf Urine Squamous Epithelial Cells Mod <5 /hpf Urine Bacteria Few H None Seen /hpf Urine Hyaline Casts Mod 0 - 2 /lpf Urine Mucus Few None Seen Urine Glucose 3+ H Normal mg/dL Assessment/Plan Assessment/Plan # acute complicated UTI -evident on urinalysis -currently on Rocephin -ordered urine culture -monitor lab -CT abdominal pelvis showed no acute changes # MAGALY likely VMN -monitor lab -encouraged oral fluids # uncontrolled type 2 DM -Moderate ISS -continuously monitored # HTN urgency -continuously monitor blood pressure -continue home meds # hypothyroidism -resumed home meds Lovenox for now No GI PPX Cardiac diet Reconciled home meds Goals of care discussed with the patient for more than 27 minutes: Full code status Case management discussed with Dr. Gilliam, patient and nurse Plan discussed with: Patient My Orders Orders - MARIA LUISA ROSARIO RESIDENT Procedure Category Date Status Time Admit ADMIT 02/14/24 Transmitted 21:00 Allergies GERMAINE 02/14/24 In Process 21:00 Code Status CODE 02/14/24 Transmitted 21:00 2 Gm Sodium Diet DIET 02/15/24 Transmitted Breakfast Sodium Chloride Lock PHA 02/14/24 In Process (Saline Lock Ns) 22:00 Acetaminophen Tablet PHA 02/14/24 In Process (Tylenol Tablet) 21:00 Ondansetron Hcl PHA 02/14/24 In Process (Zofran) 21:00 Complete Blood Count LAB 02/15/24 Verified 04:00 Comprehensive LAB 02/15/24 Verified Metabolic Panel 04:00 Cardiac DIET 02/15/24 Transmitted Diet-2gna,Lofat,Lochol Breakfast Morphine Sulfate PHA 02/14/24 In Process Injection 21:00 Enoxaparin Sodium PHA 02/14/24 In Process (Lovenox) 21:00 Nitroglycerin PHA 02/14/24 In Process Sublingual (Ntrostat 21:00 Morphine Sulfate PHA 02/14/24 In Process Injection 21:00 Oxygen By Nasal RT 02/14/24 Transmitted Cannula 21:00 Stat Ekg For Chest GERMAINE 02/14/24 In Process Pain 21:00 Notify Of Changes GERMAINE 02/14/24 In Process From Base 21:00 Supervisor Cured Meats For GERMAINE 02/14/24 In Process 24 Hours 21:00 Emergency Dysrhythmia GERMAINE 02/14/24 In Process Protocol 21:00 Rhythm Strips Once GERMAINE 02/14/24 In Process Every Shift 21:00 Glucose Blood PHA 02/14/24 In Process (Accu-Chek Comfort 22:00 Insulin R (Human) PHA 02/14/24 In Process (Insulin R) 22:00 Insulin R (Human) PHA 02/15/24 In Process (Insulin R) 07:00 Dextrose 50% Syringe PHA 02/14/24 In Process 21:00 Drug Screen LAB 02/14/24 In Process 21:54 PTPTT LAB 02/15/24 Verified 04:00 Vitamin D, 25-Hydroxy LAB 02/14/24 In Process 21:54 Vitamin B12 LAB 02/14/24 In Process 21:54 Thyroid Stimulating LAB 02/14/24 In Process Hormone 21:54 Ceftriaxone 1gm/50ml PHA 02/15/24 Logged D5w (Rocephin) 09:00 Amlodipine Tablet PHA 02/15/24 Verified (Norvasc Tablet) 10:00 Cyclobenzaprine PHA 02/15/24 Verified Tablet (Flexeril 22:00 (Nf) Levothyroxine PHA 02/15/24 Verified Sodium 10:00 (Nf) Losartan PHA 02/15/24 Verified Potassium 10:00 (Nf) Metoprolol PHA 02/15/24 Verified Succinate (Metoprolol 10:00 Date of Service: Feb 14, 2024 Billing Provider: MARGARETTE GILLIAM MD Common Visit Codes: 58095-FRHAPXG INP/OBS CARE (HIGH) Secondary Visit Codes: 87173-SPURWSRF CARE PLAN 30 MINUTES MARIA LUISA ROSARIO RESIDENT Feb 14, 2024 22:14 MARGARETTE GILLIAM MD Feb 15, 2024 09:32
[2024-02-14] MEDS: ENOXAPARIN SOD 40 MG/0.4 ML SYRINGE SC SCH (22:18)
[2024-02-14] MEDS: InsuLIN REG 1unit/0.01ml Soln (100units/ml) SC SCH (22:18)
[2024-02-15] VITALS (9 sets, daily range): BP systolic 135–158; BP diastolic 59–82; PULSE 74–99; RESP 15–87; TEMP 98.3–99.7; O2SAT 94–97
[2024-02-15] MEDS: LEVOTHYROXINE SODIUM 25 MCG TAB PO SCH (06:06)
[2024-02-15] MEDS: InsuLIN REG 1unit/0.01ml Soln (100units/ml) SC SCH (06:07)
[2024-02-15] MEDS: MORPHINE SULFATE INJ 2 MG/ml SYRG IV PRN (06:12)
[2024-02-15 06:43] LABS: Alanine Aminotransferase 12 U/L (7-40); Albumin 3.8 g/dL (3.2-4.8); Alkaline Phosphatase 42 U/L (46-116); Anion Gap 8 (5-15); Aspartate Aminotransferase 15 U/L (13-40); BUN/Creatinine Ratio 16.8 (10.0-20.0); Blood Urea Nitrogen 16 mg/dL (9-23); Calcium 10.5 mg/dL (8.7-10.4); Carbon Dioxide 27 mmol/L (20-31); Chloride 104 mmol/L (98-107); Glucose 113 mg/dL (74-106); Potassium 3.7 mmol/L (3.5-5.1); Sodium 139 mmol/L (136-145)
[2024-02-15 06:44] LABS: Bilirubin, Total 0.5 mg/dL (0.2-1.0); Total Protein 6.1 g/dL (5.7-8.2)
[2024-02-15 06:48] LABS: INR 1.11 (0.9-1.15); Partial Thromboplastin Time 30.3 SEC (24.5-34.5); Prothrombin Time 11.7 sec (9.3-11.8)
[2024-02-15 06:56] LABS: Free T4 (Free Thyroxine) 1.2 ng/dL (0.89-1.76); T3 Total 1.47 ng/mL (0.60-1.81)
[2024-02-15 07:08] LABS: Basophils # (auto) 0.1 10 ^3/uL (0-0.2); Basophils % (auto) 1.1 % (0.0-2.0); Eosinophils # (auto) 0.2 10 ^3/uL (0-0.8); Eosinophils % (auto) 3.3 % (0.0-7.0); Hematocrit 33.9 % (36.0-46.0); Hemoglobin 10.8 g/dL (12.2-16.2); Lymphocytes # (auto) 1.5 10 ^3/uL (0.4-5.4); Lymphocytes % (auto) 21.6 % (10.0-50.0); Mean Corpuscular Hemoglobin 27.9 pg (28.0-32.0); Mean Corpuscular Hgb Conc. 31.8 g/dL (32.0-36.0); Mean Corpuscular Volume 87.6 fL (80.0-100.0); Monocytes # (auto) 0.8 10 ^3/uL (0-1.3); Monocytes % (auto) 11.2 % (0.0-12.0); Neutrophils # (auto) 4.3 10 ^3/uL (1.6-8.6); Neutrophils % (auto) 62.8 % (37.0-80.0); Nucleated Red Blood Cells % 0.2 %; Platelet Count (auto) 195 10^3/uL (140-450); Red Blood Cells 3.87 10^6/uL (4.0-5.20); Red Cell Distribution Width 15.9 % (11.8-14.3); White Blood Cell 6.8 10^3/uL (4.4-10.8)
[2024-02-15] MEDS ORDERED: PATIENTS OWN MEDICATION (Metoprolol Succinate (Metoprolol Succinate Er) 1 TAB) PO SCH (10:00)
[2024-02-15] MEDS ORDERED: PATIENTS OWN MEDICATION (Levothyroxine Sodium 1 TAB) PO SCH (10:00)
[2024-02-15] MEDS ORDERED: PATIENTS OWN MEDICATION (Losartan Potassium 1 TAB) PO SCH (10:00)
[2024-02-15] MEDS: LOSARTAN POTASSIUM 50 MG TAB PO SCH (10:31)
[2024-02-15] MEDS: amLODIPine BESYLATE 5 MG TAB PO SCH (10:31)
[2024-02-15] MEDS: METOPROLOL SUCCINATE XL 50 MG TAB PO SCH (10:32)
--- NOTE | 2024-02-15 10:52 | DVHPNRES ---
Progress Note Date Seen: Feb 15, 2024 Resident Creating Document: GILBERT CARTWRIGHT RESIDENT Medical Necessity Reason Pt with a Central, PICC or Fol: No Subjective Review of Systems Patient is 78 years old female with past medical history of rheumatoid arthritis, type 2 diabetes mellitus, hypertension, hypothyroidism, hyperlipidemia, obesity, anemia, suspected CKD came with a complaint of lower abdominal pain for last 2-3 days. As per patient pain is constant in nature, 9/10, stabbing pain, no aggravating or relieving factor, no radiation. Patient also reported having similar symptom 6 7 years before avoid she went to an urgent care center and they prescribed her ciprofloxacin for UTI. As per patient she was still continuing ciprofloxacin for UTI. Denied any dysuria, urgency, frequency, constipation, diarrhea, chest pain, shortness of breath, dysarthria. Initial lab workup revealed phosphatase MAGALY on CKD, hypercalcemia likely due to dehydration, vitamin-D deficiency vitamin-D level 27.2, elevated TSH 6.44, if T3 and T4 with a normal limit, urinalysis revealed UTI with leukocyte esterase 3+, WBC 60, RBC 20, bacteria few. The abdomen revealed no acute intra-abdominal finding. PMH-rheumatoid arthritis, type 2 diabetes mellitus, hypertension, hypothyroidism, hyperlipidemia, obesity, anemia, suspected CKD PSH- cholecystectomy, bilateral knee replacement, right hip replacement Allergy- levofloxacin, magnesium, salictlate, sulfa drug Personal History/ Social History- Patient was seen today at the bedside. Patient reports lower abdominal pain Cardiovascular- deny acute chest pain or shortness of breath or cough or palpitation Respiratory- denies cough or short of breath or wheezing Gastrointestinal- denies any rectal bleeding, nausea or vomiting Musculoskeletal-denies acute joint swelling or tenderness or redness Neurological- denies acute dysarthria, dysphagia, change in vision Psychiatry- denies depression or SI or HI Skin- fragile skin Patient was seen today for clinical evaluation. Labs chart reviewed. Patient reports ongoing lower abdominal pain. There is suprapubic tenderness on palpation, patient is on ceftriaxone IV 1 g daily for UTI. Pending urine CS. Order for physical therapy evaluation. Objective vital signs Vital Sign Date Time Temp Pulse Resp B/P (MAP) Pulse Ox O2 Delivery O2 Flow Rate FiO2 02/15/24 10:32 87 153/71 02/15/24 07:30 15 97 Room Air* 0 21 02/15/24 05:00 98.3 98.3 Total Intake and Output 02/14/24 02/14/24 02/15/24 15:00 23:00 07:00 Intake Total 150 ml Output Total 200 ml Balance -50 ml medications Current Medications Medications Dose Ordered Sig/Monse Route Start Time Stop Time Status Last Admin Dose Admin Sodium Chloride 10 ml Q8HR IV 02/14/24 22:00 02/15/24 06:06 10 ML Acetaminophen 325 mg Q4HP PRN PO 02/14/24 21:00 Ondansetron HCl 4 mg Q4HP PRN IV 02/14/24 21:00 Morphine Sulfate 2 mg Q4HPRN PRN IV 02/14/24 21:00 02/15/24 06:12 2 MG Enoxaparin Sodium 40 mg DAILY@2100 SC 02/14/24 21:00 02/14/24 22:18 40 MG Nitroglycerin 0.4 mg Q5MINP PRN SL 02/14/24 21:00 Morphine Sulfate 2 mg Q30M PRN IV 02/14/24 21:00 Diagnostic Test (Pha) 1 strip ACHS 02/14/24 22:00 02/15/24 06:06 1 STRIP Insulin Human Regular HS SC 02/14/24 22:00 02/14/24 22:18 3 UNITS Insulin Human Regular AC SC 02/15/24 07:00 Dextrose 50 ml UD PRN IV 02/14/24 21:00 Ceftriaxone Sodium 50 ml @ 100 mls/hr DAILY@1600 IV 02/15/24 16:00 Amlodipine Besylate 5 mg DAILY PO 02/15/24 10:00 02/15/24 10:31 5 MG Cyclobenzaprine HCl 5 mg QHSP PRN PO 02/15/24 22:00 Levothyroxine Sodium 75 mcg DAILY@0600 PO 02/15/24 06:00 02/15/24 06:06 75 MCG Losartan Potassium 100 mg DAILY PO 02/15/24 10:00 02/15/24 10:31 100 MG Metoprolol Succinate 100 mg DAILY PO 02/15/24 10:00 02/15/24 10:32 100 MG Examination General examination- awake, alert, oriented, conversant HEENT- PEERLA, no acute nasal discharge Cardiovascular- S1-S2 audible, rate and rhythm regular, no murmur Respiratory- CTAB, no wheeze or rhonchi Abdominal-tenderness in the suprapubic region, scar rivera noted, bowel sound+. Nondistended, Musculoskeletal-patient with tenderness on multiple joint including bag and pelvis Lower extremity- no leg edema Neurological- cranial nerves intact, no acute dysarthria or dysphagia Psychiatry- denies depression or SI or HI Skin-fragile skin laboratory and microbiology Laboratory Tests 02/15/24 05:27 Test 02/15/24 05:27 Range/Units Serum Glucose 113 H 74-106 mg/dL Problem List/Assessment/Plan Problem List/Assessment/Plan # acute suprapubic pain most likely due to UTI, colitis ruled out -CT abdomen revealed no acute intra-abdominal abnormality. -urinalysis leukocyte esterase positive 3+, WBC 60, bacteria few -continue ceftriaxone 1 g IV daily -avoid dehydration and nephrotoxic drugs -maintain adequate hydration -pending urine CS # UTI --urinalysis leukocyte esterase positive 3+, WBC 60, bacteria few --CT abdomen revealed no acute intra-abdominal abnormality. -continue ceftriaxone 1 g IV daily -avoid dehydration and nephrotoxic drugs -maintain adequate hydration -pending urine CS # rheumatoid arthritis, no acute flare -continue home medication as prescribed #Hypertension -continue amlodipine 5 mg p.o. daily -continue metoprolol succinate XL 100 mg p.o. daily -continue losartan 100 mg p.o. daily - #Diabetes mellitus type 2 -continue insulin as per sliding scale #Hypothyroidism -TSH 6.44, free T3 1.47 free T4 1.20 -continue levothyroxine 75 mcg p.o. daily #Hyperlipidemia -continue atorvastatin 20 mg p.o. q.h.s. #Suspected MAGALY on CKD stage 4 likely due to VMN --avoid dehydration and nephrotoxic drugs #Mild normocytic normochromic anemia likely due to anemia of chronic disease -monitor CBC # obesity, -patient was counseled about weight reduction, healthy diet, physical activity #Vitamin-D deficiency -continue ergo cholecalciferol 53469 p.o. q.week Goals of care/advance care planning; FULL CODE; discussed with the patient PUD prophylaxis: DVT prophylaxis: Lovenox Plan discussed with Dr. Marroquin,,, nursing staff, patient Total time spent on patient evaluation, chart review, assessment and plan, discussion discussion >20 minutes Plan discussed with: Patient Plan discussed with: Patient (RN PATIENT), Other My Orders My Orders Orders - GILBERT CARTWRIGHT Procedure Category Date Status Time Urine Bacterial SERGEY 02/15/24 Uncollected Culture 07:53 Communication Order ORDERS 02/15/24 Transmitted 07:53 Date of Service: Feb 15, 2024 Billing Provider: SARAN MARROQUIN MD Common Visit Codes: [id number] INP/OBS CARE(HIGH) Secondary Visit Codes: [id number] CARE PLAN 30 MINUTES GILBERT CARTWRIGHT Feb 15, 2024 10:52 SARAN MARROQUIN MD Feb 15, 2024 19:01
[2024-02-15] MEDS ORDERED: ERGOCALCIFEROL 50,000 UNIT(1.25MG) CAP PO SCH (15:15)
[2024-02-15 15:57] LABS: Amphetamine Screen, Urine Neg (NEGATIVE); Benzodiazephine Screen, Urine Neg (NEGATIVE)
[2024-02-15 15:58] LABS: Barbiturate Scree,Urine Neg (NEGATIVE); Cannabinoid Screen, Urine Neg (NEGATIVE); Cocaine Screen, Urine Neg (NEGATIVE); Opiate Scree,Urine Pos (NEGATIVE); Phencyclidine Screen, Urine Neg (NEGATIVE)
[2024-02-15] MEDS: cefTRIAXone 1GM/50ML D5W 50 ML IV SCH (16:30)
[2024-02-15] MEDS ORDERED: CYCLOBENZAPRINE HCL 10 MG TAB PO PRN (22:00)
[2024-02-16] VITALS (7 sets, daily range): BP systolic 127–162; BP diastolic 57–76; PULSE 63–96; RESP 13–19; TEMP 97.1–99.4; O2SAT 92–99
[2024-02-16 05:43] LABS: Basophils # (auto) 0 10 ^3/uL (0-0.2); Basophils % (auto) 0.6 % (0.0-2.0); Eosinophils # (auto) 0.2 10 ^3/uL (0-0.8); Eosinophils % (auto) 3.2 % (0.0-7.0); Hematocrit 33.4 % (36.0-46.0); Lymphocytes # (auto) 1.5 10 ^3/uL (0.4-5.4); Lymphocytes % (auto) 23.9 % (10.0-50.0); Mean Corpuscular Hemoglobin 28.5 pg (28.0-32.0); Mean Corpuscular Hgb Conc. 32.9 g/dL (32.0-36.0); Mean Corpuscular Volume 86.6 fL (80.0-100.0); Monocytes # (auto) 0.8 10 ^3/uL (0-1.3); Neutrophils # (auto) 3.7 10 ^3/uL (1.6-8.6); Neutrophils % (auto) 59.3 % (37.0-80.0); Platelet Count (auto) 190 10^3/uL (140-450); Red Blood Cells 3.86 10^6/uL (4.0-5.20); Red Cell Distribution Width 15.7 % (11.8-14.3); White Blood Cell 6.2 10^3/uL (4.4-10.8)
[2024-02-16 05:54] LABS: Chloride 105 mmol/L (98-107); Potassium 3.3 mmol/L (3.5-5.1); Sodium 141 mmol/L (136-145)
[2024-02-16 05:55] LABS: Anion Gap 8 (5-15); Calcium 10.3 mg/dL (8.7-10.4); Carbon Dioxide 28 mmol/L (20-31)
[2024-02-16 06:00] LABS: BUN/Creatinine Ratio 8.6 (10.0-20.0); Blood Urea Nitrogen 10 mg/dL (9-23); Glucose 146 mg/dL (74-106); Triglycerides 226 mg/dL (< 150)
[2024-02-16 06:01] LABS: LDL Cholesterol 53 mg/dL (< 100)
[2024-02-16 06:03] LABS: Cholesterol 120 mg/dL (< 200); HDL Cholesterol 37 mg/dL (40-59)
[2024-02-16] MEDS ORDERED: hydrALAZINE HCL 20 MG/ML VL IV PRN (07:00)
[2024-02-16] MEDS: POTASSIUM CHL 20 Meq TABLET PO ONE (07:44)
[2024-02-16] MEDS: TRIAMTERENE/HCTZ 37.5/25 MG CAP/TAB PO SCH (09:52)
[2024-02-16] MEDS: predniSONE 5 MG TAB PO SCH (09:53)
[2024-02-16] MEDS: FOLIC ACID 1 MG TAB PO SCH (09:53)
[2024-02-16] MEDS: ATORVASTATIN 20 MG TAB PO SCH (09:53)
[2024-02-16] MEDS ORDERED: PATIENTS OWN MEDICATION (Hydrochlorothiazide 12.5 MG) OR SCH (10:00)
--- NOTE | 2024-02-16 15:14 | DVHPNRES ---
Progress Note Date Seen: Feb 16, 2024 Resident Creating Document: GILBERT CARTWRIGHT RESIDENT Medical Necessity Reason Pt with a Central, PICC or Fol: No Subjective Review of Systems Patient is 78 years old female with past medical history of rheumatoid arthritis, type 2 diabetes mellitus, hypertension, hypothyroidism, hyperlipidemia, obesity, anemia, suspected CKD came with a complaint of lower abdominal pain for last 2-3 days. As per patient pain is constant in nature, 9/10, stabbing pain, no aggravating or relieving factor, no radiation. Patient also reported having similar symptom 6 7 years before avoid she went to an urgent care center and they prescribed her ciprofloxacin for UTI. As per patient she was still continuing ciprofloxacin for UTI. Denied any dysuria, urgency, frequency, constipation, diarrhea, chest pain, shortness of breath, dysarthria. Initial lab workup revealed phosphatase MAGALY on CKD, hypercalcemia likely due to dehydration, vitamin-D deficiency vitamin-D level 27.2, elevated TSH 6.44, if T3 and T4 with a normal limit, urinalysis revealed UTI with leukocyte esterase 3+, WBC 60, RBC 20, bacteria few. The abdomen revealed no acute intra-abdominal finding. PMH-rheumatoid arthritis, type 2 diabetes mellitus, hypertension, hypothyroidism, hyperlipidemia, obesity, anemia, suspected CKD PSH- cholecystectomy, bilateral knee replacement, right hip replacement Allergy- levofloxacin, magnesium, salictlate, sulfa drug Personal History/ Social History- Patient was seen today at the bedside. Patient reports lower abdominal pain Cardiovascular- deny acute chest pain or shortness of breath or cough or palpitation Respiratory- denies cough or short of breath or wheezing Gastrointestinal- denies any rectal bleeding, nausea or vomiting Musculoskeletal-denies acute joint swelling or tenderness or redness Neurological- denies acute dysarthria, dysphagia, change in vision Psychiatry- denies depression or SI or HI Skin- fragile skin Patient was seen today for clinical evaluation. Labs chart reviewed. No fever noted. Patient denied dysuria. UDS positive for fentanyl, opiates. Patient had morphine in the ER. Potassium today 3.3, replenished. Patient reports mild improvement of lower abdominal pain. Suprapubic tenderness still positive. Preliminary CS showed no growth. Patient on IV antibiotic ceftriaxone 1 g daily. No side effect noted. Restarted prednisone 5 mg p.o. daily as patient was taking at home. Objective vital signs Vital Sign Date Time Temp Pulse Resp B/P (MAP) Pulse Ox O2 Delivery O2 Flow Rate FiO2 02/16/24 12:11 98.6 96 18 138/67 (90) 95 98.6 02/16/24 07:30 Room Air* 0 21 Total Intake and Output 02/15/24 02/15/24 02/16/24 15:00 23:00 07:00 Intake Total 1025 ml Balance 1025 ml medications Current Medications Medications Dose Ordered Sig/Monse Route Start Time Stop Time Status Last Admin Dose Admin Sodium Chloride 10 ml Q8HR IV 02/14/24 22:00 02/16/24 06:33 10 ML Acetaminophen 325 mg Q4HP PRN PO 02/14/24 21:00 Ondansetron HCl 4 mg Q4HP PRN IV 02/14/24 21:00 Morphine Sulfate 2 mg Q4HPRN PRN IV 02/14/24 21:00 02/16/24 09:57 2 MG Enoxaparin Sodium 40 mg DAILY@2100 SC 02/14/24 21:00 02/15/24 21:52 40 MG Nitroglycerin 0.4 mg Q5MINP PRN SL 02/14/24 21:00 Morphine Sulfate 2 mg Q30M PRN IV 02/14/24 21:00 Diagnostic Test (Pha) 1 strip ACHS 02/14/24 22:00 02/16/24 11:28 1 STRIP Insulin Human Regular HS SC 02/14/24 22:00 02/15/24 21:57 4 UNITS Insulin Human Regular AC SC 02/15/24 07:00 02/16/24 11:28 9 UNITS Dextrose 50 ml UD PRN IV 02/14/24 21:00 Ceftriaxone Sodium 50 ml @ 100 mls/hr DAILY@1600 IV 02/15/24 16:00 02/15/24 16:30 100 MLS/HR Amlodipine Besylate 5 mg DAILY PO 02/15/24 10:00 02/16/24 09:54 5 MG Cyclobenzaprine HCl 5 mg QHSP PRN PO 02/15/24 22:00 Levothyroxine Sodium 75 mcg DAILY@0600 PO 02/15/24 06:00 02/16/24 06:33 75 MCG Losartan Potassium 100 mg DAILY PO 02/15/24 10:00 02/16/24 09:52 100 MG Metoprolol Succinate 100 mg DAILY PO 02/15/24 10:00 02/16/24 09:53 100 MG Atorvastatin Calcium 20 mg DAILY PO 02/16/24 10:00 02/16/24 09:53 20 MG Ergocalciferol 50,000 unit QWEEKLY PO 02/15/24 15:15 Folic Acid 1 mg DAILY PO 02/16/24 10:00 02/16/24 09:53 1 MG Triamterene/HCTZ 1 cap DAILY PO 02/16/24 10:00 02/16/24 09:52 1 CAP Hydralazine HCl 10 mg Q6HP PRN IV 02/16/24 07:00 Prednisone 5 mg DAILY PO 02/16/24 10:00 02/16/24 09:53 5 MG Examination General examination- awake, alert, oriented, conversant HEENT- PEERLA, no acute nasal discharge Cardiovascular- S1-S2 audible, rate and rhythm regular, no murmur Respiratory- CTAB, no wheeze or rhonchi Abdominal-tenderness in the suprapubic region, scar rivera noted, bowel sound+. Nondistended, Musculoskeletal-patient with tenderness on multiple joint including bag and pelvis Lower extremity- no leg edema Neurological- cranial nerves intact, no acute dysarthria or dysphagia Psychiatry- denies depression or SI or HI Skin-fragile skin laboratory and microbiology Laboratory Tests 02/16/24 05:18 Test 02/16/24 05:18 Range/Units Serum Glucose 146 H 74-106 mg/dL Microbiology Date/Time Source Procedure Growth Status 02/15/24 15:19 Voided Urine Urine Culture - Preliminary Resulted Problem List/Assessment/Plan Problem List/Assessment/Plan # acute suprapubic pain most likely due to UTI, colitis ruled out -CT abdomen revealed no acute intra-abdominal abnormality. -urinalysis leukocyte esterase positive 3+, WBC 60, bacteria few -preliminary urine CS revealed no growth -continue ceftriaxone 1 g IV daily -avoid dehydration and nephrotoxic drugs -maintain adequate hydration # UTI --urinalysis leukocyte esterase positive 3+, WBC 60, bacteria few --CT abdomen revealed no acute intra-abdominal abnormality. -preliminary urine CS revealed no growth -continue ceftriaxone 1 g IV daily -avoid dehydration and nephrotoxic drugs -maintain adequate hydration # hypokalemia, potassium 3.3 -replenished -monitor BMP # rheumatoid arthritis, no acute flare -continue home medication as prescribed #Hypertension -continue amlodipine 5 mg p.o. daily -continue metoprolol succinate XL 100 mg p.o. daily -continue losartan 100 mg p.o. daily - #Diabetes mellitus type 2 -continue insulin as per sliding scale #Hypothyroidism -TSH 6.44, free T3 1.47 free T4 1.20 -continue levothyroxine 75 mcg p.o. daily #Hyperlipidemia -continue atorvastatin 20 mg p.o. q.h.s. #Suspected MAGALY on CKD stage 4 likely due to VMN --avoid dehydration and nephrotoxic drugs #Mild normocytic normochromic anemia likely due to anemia of chronic disease -monitor CBC # obesity, -patient was counseled about weight reduction, healthy diet, physical activity #Vitamin-D deficiency -continue ergo cholecalciferol 22652 p.o. q.week Goals of care/advance care planning; FULL CODE; discussed with the patient PUD prophylaxis: DVT prophylaxis: Lovenox Plan discussed with Dr. Marroquin,,, nursing staff, patient Total time spent on patient evaluation, chart review, assessment and plan, discussion discussion >20 minutes Plan discussed with: Patient Plan discussed with: Patient, Other (RN) My Orders My Orders Orders - GILBERT CARTWRIGHT Procedure Category Date Status Time Atorvastatin (Lipitor) PHA 02/16/24 In Process 10:00 Ergocalciferol PHA 02/15/24 In Process (Vitamin D 50,000 15:15 Folic Acid Tablet PHA 02/16/24 In Process 10:00 Triamterene/Hctz PHA 02/16/24 In Process (Dyazide 37.5/25mg 10:00 Hydralazine Injection PHA 02/16/24 In Process (Apresoline Inject 07:00 Prednisone Tablet PHA 02/16/24 In Process 10:00 Date of Service: Feb 16, 2024 Billing Provider: SARAN MARROQUIN MD Common Visit Codes: [id number] INP/OBS CARE(HIGH) GILBERT CARTWRIGHT Feb 16, 2024 15:14 SARAN MARROQIUN MD Feb 16, 2024 22:06
[2024-02-17 05:00] VITALS: BP 107/46; PULSE 71; RESP 19; TEMP 98.7; O2SAT 96
[2024-02-17 05:04] LABS: Basophils # (auto) 0 10 ^3/uL (0-0.2); Basophils % (auto) 0.7 % (0.0-2.0); Eosinophils # (auto) 0.2 10 ^3/uL (0-0.8); Hematocrit 33.4 % (36.0-46.0); Hemoglobin 10.8 g/dL (12.2-16.2); Lymphocytes # (auto) 1.4 10 ^3/uL (0.4-5.4); Lymphocytes % (auto) 22.3 % (10.0-50.0); Mean Corpuscular Hemoglobin 28.3 pg (28.0-32.0); Mean Corpuscular Hgb Conc. 32.4 g/dL (32.0-36.0); Mean Corpuscular Volume 87.3 fL (80.0-100.0); Monocytes # (auto) 0.6 10 ^3/uL (0-1.3); Monocytes % (auto) 10.6 % (0.0-12.0); Neutrophils # (auto) 3.8 10 ^3/uL (1.6-8.6); Neutrophils % (auto) 62.4 % (37.0-80.0); Nucleated Red Blood Cells % 0.1 %; Platelet Count (auto) 197 10^3/uL (140-450); Red Blood Cells 3.83 10^6/uL (4.0-5.20); Red Cell Distribution Width 15.9 % (11.8-14.3); White Blood Cell 6.1 10^3/uL (4.4-10.8)
[2024-02-17 05:15] LABS: Chloride 106 mmol/L (98-107); Potassium 3.8 mmol/L (3.5-5.1); Sodium 141 mmol/L (136-145)
[2024-02-17 05:16] LABS: Anion Gap 7 (5-15); Calcium 10.7 mg/dL (8.7-10.4); Carbon Dioxide 28 mmol/L (20-31)
[2024-02-17 05:21] LABS: BUN/Creatinine Ratio 10.7 (10.0-20.0); Blood Urea Nitrogen 11 mg/dL (9-23); Glucose 131 mg/dL (74-106)
[2024-02-17 08:45] VITALS: BP 136/66; PULSE 87; RESP 14; TEMP 98.1; O2SAT 96
[2024-02-17 12:51] VITALS: BP 138/72; PULSE 91; RESP 16; TEMP 97.5; O2SAT 95
[2024-02-17 13:00] VITALS: BP 138/72; PULSE 91; RESP 16; TEMP 97.5; O2SAT 95
[2024-02-17] MEDS ORDERED: CHOL1TAB42 PO (14:46)
[2024-02-17] MEDS ORDERED: CEFP200T15 PO (14:46)
[2024-02-17 16:50] VITALS: BP 151/76; PULSE 91; RESP 14; TEMP 97.5; O2SAT 98
--- NOTE | 2024-02-17 18:14 | DVHDSRES ---
Discharge Summary Date of Admission Resident Creating Document: GILBERT CARTWRIGHT Feb 14, 2024 at 21:00 Date of Discharge: Feb 17, 2024 Admitting Diagnosis Lower abdominal pain Labs/Diagnostic Data: Laboratory Results Test 02/17/24 11:00 02/17/24 04:44 02/16/24 05:18 02/15/24 15:19 POC Glucose 293 mg/dl (70-106) White Blood Count 6.1 10^3/uL (4.4-10.8) Red Blood Count 3.83 10^6/uL (4.0-5.20) Hemoglobin 10.8 g/dL (12.2-16.2) Hematocrit 33.4 % (36.0-46.0) Mean Corpuscular Volume 87.3 fL (80.0-100.0) Mean Corpuscular Hemoglobin 28.3 pg (28.0-32.0) Mean Corpuscular Hemoglobin Concent 32.4 g/dL (32.0-36.0) Red Cell Distribution Width 15.9 % (11.8-14.3) Platelet Count 197 10^3/uL (140-450) Mean Platelet Volume 7.7 fL (6.9-10.8) Neutrophils (%) (Auto) 62.4 % (37.0-80.0) Lymphocytes (%) (Auto) 22.3 % (10.0-50.0) Monocytes (%) (Auto) 10.6 % (0.0-12.0) Eosinophils (%) (Auto) 4.0 % (0.0-7.0) Basophils (%) (Auto) 0.7 % (0.0-2.0) Neutrophils # (Auto) 3.8 10 ^3/uL (1.6-8.6) Lymphocytes # (Auto) 1.4 10 ^3/uL (0.4-5.4) Monocytes # (Auto) 0.6 10 ^3/uL (0-1.3) Eosinophils # (Auto) 0.2 10 ^3/uL (0-0.8) Basophils # (Auto) 0 10 ^3/uL (0-0.2) Nucleated Red Blood Cells 0.1 % Sodium Level 141 mmol/L (136-145) Potassium Level 3.8 mmol/L (3.5-5.1) Chloride Level 106 mmol/L (98-107) Carbon Dioxide Level 28 mmol/L (20-31) Anion Gap 7 (5-15) Blood Urea Nitrogen 11 mg/dL (9-23) Creatinine 1.03 mg/dL (0.550-1.02) Glomerular Filtration Rate Calc 56 mL/min (>90) BUN/Creatinine Ratio 10.7 (10.0-20.0) Serum Glucose 131 mg/dL (74-106) Calcium Level 10.7 mg/dL (8.7-10.4) Triglycerides Level 226 mg/dL (< 150) Cholesterol Level 120 mg/dL (< 200) LDL Cholesterol 53 mg/dL (< 100) HDL Cholesterol 37 mg/dL (40-59) Urine Opiates Screen Pos (NEGATIVE) Urine Fentanyl Screen Pos (NEGATIVE) Urine Barbiturates Screen Neg (NEGATIVE) Urine Phencyclidine Screen Neg (NEGATIVE) Urine Amphetamines Screen Neg (NEGATIVE) Urine Benzodiazepines Screen Neg (NEGATIVE) Urine Cocaine Screen Neg (NEGATIVE) Urine Cannabinoids Screen Neg (NEGATIVE) Test 02/15/24 05:27 02/14/24 16:08 02/14/24 14:36 Prothrombin Time 11.7 sec (9.3-11.8) Prothrombin Time INR 1.11 (0.9-1.15) Activated Partial Thromboplast Time 30.3 SEC (24.5-34.5) Total Bilirubin 0.5 mg/dL (0.2-1.0) Aspartate Amino Transferase (AST) 15 U/L (13-40) Alanine Aminotransferase (ALT) 12 U/L (7-40) Alkaline Phosphatase 42 U/L (46-116) Total Protein 6.1 g/dL (5.7-8.2) Albumin 3.8 g/dL (3.2-4.8) Free Thyroxine (T4) Calculated 1.20 ng/dL (0.89-1.76) Total Triiodothyronine (TT3) 1.47 ng/mL (0.60-1.81) Lipase 33 U/L (12-53) Vitamin B12 Level 622 pg/mL (211-911) Vitamin D 25-Hydroxy 27.2 ng/mL (30.0-100) Thyroid Stimulating Hormone (TSH) 6.44 uIU/mL (0.55-4.78) Urine Color Yellow (Yellow) Urine Clarity Cloudy (Clear) Urine pH 5.5 (5.0-9.0) Urine Specific [place] 1.031 (1.001-1.035) Urine Protein 1+ (Negative) Urine Ketones 1+ (Negative) Urine Blood Trace /uL (Negative) Urine Nitrite Negative (Negative) Urine Bilirubin Negative (Negative) Urine Urobilinogen Normal mg/dL (Negative) Urine Leukocyte Esterase 3+ /uL (Negative) Urine RBC 20 /hpf (0 - 4) Urine WBC 60 /hpf (0 - 5) Urine Squamous Epithelial Cells Mod /hpf (<5) Urine Bacteria Few /hpf (None Seen) Urine Hyaline Casts Mod /lpf (0 - 2) Urine Mucus Few (None Seen) Urine Glucose 3+ mg/dL (Normal) Other Laboratory Tests 02/17/24 04:44 Brief Hx & Hospital Course: Patient is 78 years old female with past medical history of rheumatoid arthritis, type 2 diabetes mellitus, hypertension, hypothyroidism, hyperlipidemia, obesity, anemia, suspected CKD came with a complaint of lower abdominal pain for last 2-3 days. As per patient pain is constant in nature, 9/10, stabbing pain, no aggravating or relieving factor, no radiation. Patient also reported having similar symptom 6 7 years before avoid she went to an urgent care center and they prescribed her ciprofloxacin for UTI. As per patient she was still continuing ciprofloxacin for UTI. Denied any dysuria, urgency, frequency, constipation, diarrhea, chest pain, shortness of breath, dysarthria. Initial lab workup revealed phosphatase MAGALY on CKD, hypercalcemia likely due to dehydration, vitamin-D deficiency vitamin-D level 27.2, elevated TSH 6.44, if T3 and T4 with a normal limit, urinalysis revealed UTI with leukocyte esterase 3+, WBC 60, RBC 20, bacteria few. The abdomen revealed no acute intra-abdominal finding. Urine CS no significant growth. Patient was treated with IV ceftriaxone uterine hospitalization. Patient's symptoms improved. Patient was discharged with cefpodoxime 100 mg p.o. b.i.d. for 5 days, cholecalciferol 2000 units daily for 30 days. Patient's meds were sent to the pharmacy electronically. Patient was hemodynamically stable on discharge. Patient was advised to follow up with the PCP in 1 week PMH-rheumatoid arthritis, type 2 diabetes mellitus, hypertension, hypothyroidism, hyperlipidemia, obesity, anemia, suspected CKD PSH- cholecystectomy, bilateral knee replacement, right hip replacement Allergy- levofloxacin, magnesium, salictlate, sulfa drug Personal History/ Social History- Patient was seen today at the bedside. Patient reports feeling better today Cardiovascular- deny acute chest pain or shortness of breath or cough or palpitation Respiratory- denies cough or short of breath or wheezing Gastrointestinal- denies any rectal bleeding, nausea or vomiting Musculoskeletal-denies acute joint swelling or tenderness or redness Neurological- denies acute dysarthria, dysphagia, change in vision Psychiatry- denies depression or SI or HI Skin- fragile skin General examination- awake, alert, oriented, conversant HEENT- PEERLA, no acute nasal discharge Cardiovascular- S1-S2 audible, rate and rhythm regular, no murmur Respiratory- CTAB, no wheeze or rhonchi Abdominal-scar rivera noted, bowel sound+. Nondistended, Musculoskeletal-patient with tenderness on multiple joint including bag and pelvis Lower extremity- no leg edema Neurological- cranial nerves intact, no acute dysarthria or dysphagia Psychiatry- denies depression or SI or HI Skin-fragile skin Operations or Procedures PATIENT: SUSANA BROOKS ACCT: [id number] UNIT: [id number] : 1945 LOC: ER ROOM / BED: / AGE / SEX: 78 / F ADM STATUS: REG ER SERVICE 1522 ORDERING PHYSICIAN: DIALLO SALAZAR MD PROCEDURE(s): ABPL - CT AB PEL WO CON-NO ORAL OR IV REASON: pain ORDER NUMBER(s): [id number], ACCESSION NUMBER(s): [id number] Exam: CT CT AB PEL WO CON-NO ORAL OR IV History: pain Comparison Study: CT CT AB PEL WO CON-NO ORAL OR IV on DOS: 07/20/23, CT CT AB PEL WO CON-NO ORAL OR IV on DOS: 02/08/23, [facility] on DOS: 02/17/22 Technique: Multidetector spiral CT of the abdomen and pelvis was performed from lung bases to pubic symphysis. Imaging was performed without IV contrast. Axial, coronal and sagittal multiplanar reformats were obtained from the axial data set by the technologist. Radiation dose : Abdomen/Pelvis: CTDIvol 20.88 mGy, DLP 1028.61 mGy*cm. Findings: Evaluation of solid organs is limited due to lack of intravenous contrast use. Lung Bases: No acute or significant lung base finding. Normal heart size. No pleural or pericardial effusion. Liver: The liver is normal in size. No focal lesions. Gallbladder and biliary Tree: Gallbladder is surgically absent. Spleen: Unremarkable Pancreas: The pancreas is grossly normal in appearance. Adrenal Glands: Unremarkable Kidneys: Kidneys are grossly normal without calculi or hydronephrosis. Bladder: Grossly unremarkable for degree of distention. Bowel: The stomach is grossly normal in appearance. Small bowel and colon are normal in caliber and distribution. Normal appendix is visualized in the right lower quadrant without findings of appendicitis. Ascites: Absent Lymphadenopathy: No mesenteric, retroperitoneal or periportal lymphadenopathy. Abdominal wall and Mesentery: Unremarkable. Vasculature: The visualized abdominal aorta is normal in size and caliber. There is atherosclerotic calcification of the aorta and its branches. Evaluation of abdominal and pelvic vessels is limited due to lack of intravenous contrast. Pelvic Organs: Obscured by artifact from right hip arthroplasty. Calcified fibroids in the uterus. Musculoskeletal: Grade 1 anterolisthesis of L4 on L5. IMPRESSION: 1. No acute abdominal or pelvic findings. Radiation optimization: All CT scans at this facility use at least one of these dose optimization techniques: Automated exposure control mA and/or kV adjustment per patient size (includes targeted exams where dose is matched to clinical indication) or iterative reconstruction. 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 q.week Please resume home medications Avoid dehydration and drink plenty of water Discharge Statement: "Patient was advised to return to the ER or call 911 if any headaches, dizziness, shortness of breath, chest pain, abdominal pain, bleeding, fevers, or worsening of medical condition. Patient was counseled about treatment plan, medications, possible side effects, patientverbalized understanding. All questions were answered to the best of my ability. 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
== END 2024-02-17 16:54 | disposition home or self-care (01) | DRG 689 ==
LOC: ER 13:56 → OVERFLOW 21:00 → EAST 21:02
PROVIDERS: ADMIT Internal Medicine Geriatric Medicine; ATTEND Internal Medicine Geriatric Medicine
DX: N30.01 Acute cystitis with hematuria (principal); N17.0 Acute kidney failure with tubular necrosis; N18.4 Chronic kidney disease, stage 4 (severe); Z68.1 Body mass index [BMI] 19.9 or less, adult; I16.0 Hypertensive urgency; E03.9 Hypothyroidism, unspecified; M06.9 Rheumatoid arthritis, unspecified; E66.9 Obesity, unspecified; E55.9 Vitamin D deficiency, unspecified; E87.6 Hypokalemia; D63.8 Anemia in other chronic diseases classified elsewhere; I12.9 Hypertensive chronic kidney disease with stage 1 through stage 4 chronic kidney disease, or unspecified chronic kidney disease; E11.22 Type 2 diabetes mellitus with diabetic chronic kidney disease; Z90.49 Acquired absence of other specified parts of digestive tract; Z79.899 Other long term (current) drug therapy; Z79.4 Long term (current) use of insulin
CPT/HCPCS: 36415; 74176; 80048; 80053; 80061; 80307; 81001; 82306; 82607; 82962; 83690; 84439; 84443; 84480; 85025; 85610; 85730; 87086; 87088; 97116; 97163; 97530; G0378; J1815

== ENCOUNTER 2024-05-14 20:40 | Inpatient (IN) | payer MEDICARE, MEDICAID ==
[~2024-05-14] VITALS: Ht 157.5 cm; Wt 74.6 kg
[~2024-05-14 20:40] MED LIST changes: -ALBUAER3 IN; +CEFP200T15 PO; -CEPH250C2 PO; +CHOL1TAB42 PO; -CIPR-173 PO; -CIPR500T4 PO; -MET500T PO; -METR375C PO; -PRED20TA2 PO; -TRIA75TA55 PO
[2024-05-14] MEDS: levoFLOXacin 500MG 100 ML IV ONE (21:15)
[2024-05-14] MEDS: MORPHINE SULFATE 4 MG/ML SYR/VIAL IV ONE (21:50)
[2024-05-14] MEDS: SODIUM CHLORIDE 0.9% 1,000 ML IVB ONE (21:50)
[2024-05-14] MEDS: ONDANSETRON HCL 4 MG/2 ML VIAL IV ONE ×2 (21:51→23:00)
[2024-05-14 21:54] LABS: Basophils # (auto) 0 10 ^3/uL (0-0.2); Basophils % (auto) 0.2 % (0.0-2.0); Eosinophils # (auto) 0.1 10 ^3/uL (0-0.8); Eosinophils % (auto) 0.5 % (0.0-7.0); Hematocrit 39.7 % (36.0-46.0); Hemoglobin 12.7 g/dL (12.2-16.2); Lymphocytes # (auto) 0.9 10 ^3/uL (0.4-5.4); Lymphocytes % (auto) 6.7 % (10.0-50.0); Mean Corpuscular Hemoglobin 27.4 pg (28.0-32.0); Mean Corpuscular Volume 85.7 fL (80.0-100.0); Monocytes # (auto) 0.7 10 ^3/uL (0-1.3); Monocytes % (auto) 5.4 % (0.0-12.0); Neutrophils # (auto) 11.8 10 ^3/uL (1.6-8.6); Neutrophils % (auto) 87.2 % (37.0-80.0); Nucleated Red Blood Cells % 0.1 %; Platelet Count (auto) 213 10^3/uL (140-450); Red Blood Cells 4.63 10^6/uL (4.0-5.20); Red Cell Distribution Width 15.5 % (11.8-14.3); White Blood Cell 13.6 10^3/uL (4.4-10.8)
[2024-05-14 22:07] LABS: Alanine Aminotransferase 18 U/L (7-40); Albumin 4.5 g/dL (3.2-4.8); Alkaline Phosphatase 53 U/L (46-116); Anion Gap 12 (5-15); Aspartate Aminotransferase 22 U/L (13-40); BUN/Creatinine Ratio 19.8 (10.0-20.0); Calcium 10.1 mg/dL (8.7-10.4); Carbon Dioxide 26 mmol/L (20-31); Potassium 3.8 mmol/L (3.5-5.1); Sodium 136 mmol/L (136-145)
[2024-05-14 22:08] LABS: Bilirubin, Total 0.6 mg/dL (0.2-1.0); Total Protein 7.2 g/dL (5.7-8.2)
--- NOTE | 2024-05-14 22:08 | ED.PDOC ---
History of Present Illness HPI Comments 79 y/o F, with Hx of rheumatoid arthritis, obesity, thyroid disease, DM, HTN, TIA, cholecystectomy, and appendectomy, is BIBA for c/o non-radiating, lower abdominal pain, nausea, vomiting, and diarrhea, today. Patient endorses on onset of symptoms following eating dinner, last night. Patient comments on having pain in the past and no recent sick contact or known spoiled food intake. She denies having any hematemesis, hematochezia, fever, chills, or other associated symptoms or modifiers at this time. Per EMS report, patient was found with a blood glucose of 222 and was given 4mg of Zofran PO. Chief Complaint: Abdominal Pain Time Seen by MD: 21:30 Primary Care Provider: REYES Reviewed Notes: Nurses Notes, Medications, Allergies Allergies: Coded Allergies: Levofloxacin (Verified Allergy, Unknown, 02/08/23) Magnesium Salicylate (Verified Allergy, Unknown, 02/08/23) Sulfa Drugs (Verified Allergy, Unknown, 02/08/23) Home Meds Active Scripts Cholecalciferol (VITAMIN D-3) 2,000 Unit Tab, 2000 UNIT PO DAILY for 30 Days, #30 TAB Prov:SARAN BONE MD 02/17/24 Cefpodoxime Proxetil (Cefpodoxime Proxetil) 200 Mg Tab, 1 TAB PO BID for 5 Days, #10 TAB Prov:SARAN BONE MD 02/17/24 Reported Medications Mirabegron Base (MYRBETRIQ) 25 Mg Tab, 1 TAB PO DAILY for 90 Days, #90 TAKE 1 TABLET BY MOUTH EVERY DAY. SWALLOW WHOLE WITH WATER AND DO NOT CRUSH OR CHEW OR DIVIDE. 02/16/24 Cyclobenzaprine Hcl (Cyclobenzaprine Hcl) 10 Mg Tab, 5 MG PO QHSP 07/21/23 Hydrocodone-Acetaminophen (Hydrocodone Bitartrate/AC 10-325 mg) 1 Tab Tab, 1 TAB PO Q6HR 07/21/23 Ergocalciferol (Vitamin D) 50,000 Unit Cap, 1 CAP PO QWEEKLY 07/21/23 Triamcinolone Acetonide (Kenalog) 1 Applic Ap, 1 APPLIC TOP 07/20/23 Losartan Potassium (Losartan Potassium) 100 Mg Tab, 1 TAB PO DAILY 07/20/23 Glimepiride (Glimepiride) 2 Mg Tab, 1 TAB PO BID 07/20/23 Omeprazole (Omeprazole Dr) 20 Mg Cap, 1 CAP PO DAILY 07/20/23 Metoprolol Succinate (Metoprolol Succinate Er) 100 Mg Tab, 1 TAB PO BID 07/20/23 Levothyroxine Sodium (Levothyroxine Sodium) 75 Mcg Tab, 1 TAB PO DAILY 07/20/23 Amlodipine Besylate (Amlodipine Besylate) 5 Mg Tab, 1 TAB PO DAILY 07/20/23 Diclofenac Sodium (Topical) (Diclofenac Sodium) 1 % Gel, TOP UD for 30 Days, #200 07/20/23 Albuterol Sulfate (Albuterol Sulfate Hfa) 108 Mcg/Act Aer, INH UD for 25 Days, #8.5 07/20/23 Sitagliptin Phosphate (Januvia) 100 Mg Tab, 1 TAB PO DAILY 07/20/23 Prednisone (Prednisone) 5 Mg Tab, 1 TAB PO DAILY 07/20/23 Tofacitinib Citrate (Xeljanz) 1 Mg/Ml Ludivina, 5 MG PO BID, ML 11/05/20 Metformin Hydrochloride (Metformin Hcl) 500 Mg Tab, 500 MG PO BID, TAB 11/05/20 Atorvastatin Calcium (Lipitor) 20 Mg Tab, 1 TAB PO DAILY 11/05/20 Hydrochlorothiazide (Hydrochlorothiazide) 12.5 Mg Cap, 12.5 MG OR DAILY 11/24/11 Teriparatide (Recombinant) (Forteo) 600/2.4 Ludivina, 1 2.4 SC WEEKLY 11/20/11 [Embril] No Conflict Check, 50 MG WEEKLY 11/20/11 Folic Acid (Folic Acid) 1 Mg Tab, 1 TAB PO DAILY 09/17/09 Information Source: Patient, Emergency Med Personnel Mode of Arrival: EMS Severity: Moderate Timing: Days Duration: Since onset Prehospital treatment: 12 Lead EKG, Accucheck (222), Cigar Head Stringer Past Medical History PAST MEDICAL HISTORY: Arthritis (rheumatoid), DM, HTN, Thyroid, TIA Past Medical History (Other): obesity Surgical History: Appendectomy, Cholecystectomy GLAZE SPRAYER History: Denies all GLAZE SPRAYER Hx Family History Family History: Reviewed,noncontributory to illness Social History Smoker: Non-Smoker Alcohol: Rarely Drugs: Denies Drug Use Lives In: Home Gastrointestinal: reports: abdominal pain (lower abdomen ), diarrhea, nausea, vomiting All Other Systems: Reviewed and Negative (negative unless otherwise stated above or in HPI) Physical Exam General Appearance: Moderate Distress, Obese HEENT: Normal ENT Inspection, Pharynx Normal, TMs Normal Neck: Full Range of Motion, Non-Tender, Normal, Normal Inspection Respiratory: Chest Non-Tender, Lungs Clear, No Accessory Muscle Use, No Respiratory Distress, Normal Breath Sounds Cardiovascular: No Edema, No JVD, No Murmur, No Gallop, Normal Peripheral Pulses, Regular Rate/Rhythm Breast Exam: Deferred Gastrointestinal: LLQ (tenderness), No Organomegaly, No Pulsatile Mass, Normal Bowel Sounds, RLQ (tenderness), Soft, Suprapubic (tenderness), Tenderness (Bilateral lower quadrants and suprapubic regions) Genitalia: Deferred Pelvic: Deferred Rectal: Deferred Extremities: No calf tenderness, Normal capillary refill, Normal inspection, Normal range of motion, Non-tender, No pedal edema Musculoskeletal : Apperance: Normal Neurologic: Alert, sugar boiler II-XII nml as Tested, No Motor Deficits, Normal Affect, Normal Mood, No Sensory Deficits Cerebellar Function: Normal Reflexes: Normal Skin: Dry, Normal Color, Warm Lymphatic: No Adenopathy Was a procedure done? Was a procedure done?: No EKG EKG : Pulse Rate (adult): 81 [place]: Normal Cardiac Rhythm: NSR Block: None Hypertrophy: None ST: Normal Differential Dx Considerations may include: PID, cystitis, pyelonephritis, ovarian cysts, ovarian torsions, gastritis, gastroenteritis, diverticulitis, nephrolithiasis, spoiled food, acute abdomen X-Ray, Labs, Meds, VS Vital Signs Date Time Temp Pulse Resp B/P (MAP) Pulse Ox O2 Delivery O2 Flow Rate FiO2 05/14/24 22:12 81 05/14/24 21:50 96 17 148/66 05/14/24 21:48 98.2 79 16 148/66 (93) 96 98.2 05/14/24 21:46 84 05/14/24 21:13 81 05/14/24 20:50 97.5 91 16 100/61 (74) 97 Lab Test 05/14/24 21:34 Range/Units White Blood Count 13.6 H 4.4-10.8 10^3/uL Red Blood Count 4.63 4.0-5.20 10^6/uL Hemoglobin 12.7 12.2-16.2 g/dL Hematocrit 39.7 36.0-46.0 % Mean Corpuscular Volume 85.7 80.0-100.0 fL Mean Corpuscular Hemoglobin 27.4 L 28.0-32.0 pg Mean Corpuscular Hemoglobin Concent 32.0 32.0-36.0 g/dL Red Cell Distribution Width 15.5 H 11.8-14.3 % Platelet Count 213 140-450 10^3/uL Mean Platelet Volume 7.8 6.9-10.8 fL Neutrophils (%) (Auto) 87.2 H 37.0-80.0 % Lymphocytes (%) (Auto) 6.7 L 10.0-50.0 % Monocytes (%) (Auto) 5.4 0.0-12.0 % Eosinophils (%) (Auto) 0.5 0.0-7.0 % Basophils (%) (Auto) 0.2 0.0-2.0 % Neutrophils # (Auto) 11.8 H 1.6-8.6 10 ^3/uL Lymphocytes # (Auto) 0.9 0.4-5.4 10 ^3/uL Monocytes # (Auto) 0.7 0-1.3 10 ^3/uL Eosinophils # (Auto) 0.1 0-0.8 10 ^3/uL Basophils # (Auto) 0 0-0.2 10 ^3/uL Nucleated Red Blood Cells 0.1 % Prothrombin Time 10.8 9.3-11.8 sec Prothrombin Time INR 1.02 0.9-1.15 Activated Partial Thromboplast Time 25.0 24.5-34.5 SEC Sodium Level 136 136-145 mmol/L Potassium Level 3.8 3.5-5.1 mmol/L Chloride Level 98 98-107 mmol/L Carbon Dioxide Level 26 20-31 mmol/L Anion Gap 12 5-15 Blood Urea Nitrogen 25 H 9-23 mg/dL Creatinine 1.26 H 0.550-1.02 mg/dL Glomerular Filtration Rate Calc 44 >90 mL/min BUN/Creatinine Ratio 19.8 10.0-20.0 Serum Glucose 278 H 74-106 mg/dL Lactic Acid Level 2.5 *H 0.4-2.0 mmol/L Calcium Level 10.1 8.7-10.4 mg/dL Total Bilirubin 0.6 0.2-1.0 mg/dL Aspartate Amino Transferase (AST) 22 13-40 U/L Alanine Aminotransferase (ALT) 18 7-40 U/L Alkaline Phosphatase 53 46-116 U/L Troponin I High Sensitivity < 3 L </=34 ng/L Total Protein 7.2 5.7-8.2 g/dL Albumin 4.5 3.2-4.8 g/dL Lipase 118 H 12-53 U/L Current Medications Medications (Trade) Dose Ordered Sig/Monse Route Start Time Stop Time Status Last Admin Ondansetron HCl (Zofran) 4 mg ONCE ONCE IV 05/14/24 21:15 05/14/24 21:16 DC 05/14/24 21:51 Sodium Chloride 1,000 ml @ 1,000 mls/hr Q1H ONCE IVB 05/14/24 21:15 05/14/24 22:14 DC 05/14/24 21:50 Morphine Sulfate 4 mg ONCE ONCE IV 05/14/24 21:15 05/14/24 21:16 DC 05/14/24 21:50 Prochlorperazine Edisylate (Compazine Inj) 10 mg ONCE ONCE IV 05/14/24 22:45 05/14/24 22:46 DC 05/14/24 23:00 Ondansetron HCl (Zofran) 4 mg ONCE ONCE IV 05/14/24 22:45 05/14/24 22:46 DC 05/14/24 23:00 [place] [id number] Ph: [phone] DIAGNOSTIC IMAGING Diagnostic Imaging Report : [id number] Signed PATIENT: SUSANA BROOKS ACCT: [id number] UNIT: [id number] : 1945 LOC: ER ROOM / BED: / AGE / SEX: 79 / F ADM STATUS: REG ER SERVICE 07 ORDERING PHYSICIAN: LIMA MABRY MD PROCEDURE(s): ABPL - CT AB PEL WO CON-NO ORAL OR IV REASON: abd pain ORDER NUMBER(s): [id number], ACCESSION NUMBER(s): [id number] CT SCAN ABDOMEN AND PELVIS WITHOUT CONTRAST CLINICAL HISTORY: abd pain TECHNIQUE: Helical axial images are obtained from the lung bases through the pelvis without oral contrast. No intravenous contrast was administered. Coronal and sagittal reformatted images were generated from thin section reconstruc tions. One or more of the following radiation dose reduction techniques were used for this examination: automated exposure control, adjustment of the mA and/or kV according to patient size, use of iterative reconstruction technique. COMPARISON: CT CT AB PEL WO CON-NO ORAL OR IV on DOS: 02/14/24 FINDINGS: LOWER THORAX: Small, patchy atelectasis / infiltrate in the medial right lower lobe. Correlate to exclude pulmonary infection. Coronary artery calcifications. ABDOMEN AND PELVIS: Evaluation of visceral and vascular structures is limited due to lack of contrast administration. Decreased hepatic parenchymal attenuation which is most commonly secondary to fatty infiltration. The gallbladder is surgically absent. No appreciable biliary ductal dilatation. The spleen, pancreas and adrenals appear grossly unremarkable. No hydroureteronephrosis or sizable, obstructing urinary tract calculi identified. Aortoiliac atherosclerotic calcifications. No evidence of abdominal aortic aneurysm. Fluid content in the stomach and small bowel. No overt dilatation to suggest obstruction at this time. Normal caliber appendix. Scattered colonic div erticuli. No definite CT evidence of diverticulitis. Fluid content is also noted throughout the colon. No free intraperitoneal air or fluid identified. Pelvic structures somewhat obscured by streak artifact from right hip arthroplasty. No definite bladder calculus as visualized. Uterine calcifications. Degenerative changes of the thoracic and lumbar spine. IMPRESSION: No bowel obstruction, free intraperitoneal air/ fluid or sizable inflammatory collections identified on this noncontrast examination. Fluid content noted throughout the small and large bowel is nonspecific but can be seen with enteritis as well as other diarrheal/malabsorptive conditions. Please correlate clinically. Other findings as above. ATED BY: MICHAEL LEOS MD DICTATED DATE/TIME: 05/14/242217 SIGNED BY: MICHAEL LEOS MD SIGNED DATE/TIME: 05/14/242217 CC: White blood cell count is 13.6. BUN 25. Creatinine 1.26 Lipase is 118. Troponin is three and EKG shows no signs of ischemia. Lactic acid is 2.5. Patient was given IV fluids Levaquin and Flagyl. UA pending The patient will be admitted to the hospitalist for further evaluation and care. Time of 1ST Reevaluation: 22:00 Reevaluation 1ST: Unchanged Patient Education/Counseling: Diagnosis, Treatment Family Education/Counseling: No Family Present Departure 1 Departure Time of Disposition: 23:27 Impression: Primary Impression: Enteritis Additional Impressions: Pancreatitis Qualified Codes: K85.00 - Idiopathic acute pancreatitis without necrosis or infection Dehydration Elevated lactic acid level Disposition: ADMITTED INPATIENT Admit to: Med Surg Condition: Guarded Critical Care Note Critical Care Time?: Yes (35 min-critical care time only) Stability Stability form required: No Heart Score Heart Score: Heart Score Response (Comments) Value History N/A 0 EKG N/A 0 Age N/A 0 Risk Factors N/A 0 Troponin N/A 0 Total 0 I personally scribed for LIMA MABRY MD ([email or web address]) on 05/14/24 at 22:08. Electronically submitted by Juan Jose Monge ([email or web address]). I personally scribed for LIMA MABRY MD ([email or web address]) on 05/14/24 at 22:12. Electronically submitted by Juan Jose Monge ([email or web address]). LIMA MABRY MD May 14, 2024 22:08
[2024-05-14 22:10] LABS: Blood Urea Nitrogen 25 mg/dL (9-23); Chloride 98 mmol/L (98-107); Glucose 278 mg/dL (74-106); Lipase 118 U/L (12-53)
[2024-05-14 22:16] LABS: INR 1.02 (0.9-1.15); Lactic Acid w/Reflex 2.5 mmol/L (0.4-2.0); Prothrombin Time 10.8 sec (9.3-11.8)
--- NOTE | 2024-05-14 22:20 | DVH ---
CT SCAN ABDOMEN AND PELVIS WITHOUT CONTRAST CLINICAL HISTORY: abd pain TECHNIQUE: Helical axial images are obtained from the lung bases through the pelvis without oral cont rast. No intravenous contrast was administered. Coronal and sagittal reformatted images were generate d from thin section reconstructions. One or more of the following radiation dose reduction techniques were used for this examination: automated exposure control, adjustment of the mA and/or kV according to patient size, use of iterative reconstruction technique. COMPARISON: CT CT AB PEL WO CON-NO ORAL OR IV on DOS: 02/14/24 FINDINGS: LOWER THORAX: Small, patchy atelectasis / infiltrate in the medial right lower lobe. Correlate to exclude pulmonary infection. Coronary artery calcifications. ABDOMEN AND PELVIS: Evaluation of visceral and vascular structures is limited due to lack of contrast administration. Decreased hepatic parenchymal attenuation which is most commonly secondary to fatty infiltration. Th e gallbladder is surgically absent. No appreciable biliary ductal dilatation. The spleen, pancreas an d adrenals appear grossly unremarkable. No hydroureteronephrosis or sizable, obstructing urinary tract calculi identified. Aortoiliac atherosclerotic calcifications. No evidence of abdominal aortic aneurysm. Fluid content in the stomach and small bowel. No overt dilatation to suggest obstruction at this time . Normal caliber appendix. Scattered colonic diverticuli. No definite CT evidence of diverticulitis. Fluid content is also noted throughout the colon. No free intraperitoneal air or fluid identified. Pelvic structures somewhat obscured by streak artifact from right hip arthroplasty. No definite bladd er calculus as visualized. Uterine calcifications. Degenerative changes of the thoracic and lumbar spine. IMPRESSION: No bowel obstruction, free intraperitoneal air/ fluid or sizable inflammatory collections identified on this noncontrast examination. Fluid content noted throughout the small and large bowel is nonspecific but can be seen with enteriti s as well as other diarrheal/malabsorptive conditions. Please correlate clinically. Other findings as above.
[2024-05-14] MEDS: SODIUM CHLORIDE 0.9% 1,000 ML IV ONE (22:52)
[2024-05-14] MEDS: PROCHLORPERAZINE EDISYLATE 5 MG/ML 2ML VIAL IV ONE (23:00)
[2024-05-14] MEDS ORDERED: NITROGLYCERIN 0.4 MG SL TAB SL PRN (23:30)
[2024-05-14] MEDS ORDERED: MORPHINE SULFATE INJ 2 MG/ml SYRG IV PRN (23:30)
[2024-05-14] MEDS ORDERED: DEXTROSE (50%) 50ML SYRG IV PRN (23:30)
[2024-05-14] MEDS: cefTRIAXone 1GM/50ML D5W 50 ML IV ONE (23:50)
[2024-05-14] MEDS: metroNIDAZOLE 500MG/100ML 100 ML IV ONE (23:50)
[2024-05-14] MEDS: ACCU-CHEK COMFORT CURVE STRIP VI SCH (23:57)
[2024-05-15] VITALS (9 sets, daily range): BP systolic 98–142; BP diastolic 47–81; PULSE 78–91; RESP 16–20; TEMP 98.2–99.3; O2SAT 90–99
[2024-05-15] MEDS: InsuLIN REG 1unit/0.01ml Soln (100units/ml) SC SCH
--- NOTE | 2024-05-15 00:58 | DVHHP2 ---
History of Present Illness Reason for Visit: Abdominal pain History of Present Illness 79-year-old female presents for evaluation of abdominal pain.. Patient presents with a three day history of lower abdominal pain with associated nausea, vomiting and watery diarrhea. Patient denies fever or chills. No melena. Denies cardiac or respiratory complaints. Past Medical History Hypertension, thyroid, diabetes mellitus, arthritis Past Surgical History Appendectomy and cholecystectomy Family History Noncontributory Smoke: No ALCOHOL: none Drugs: None Lives: with Family Review of Systems Review of Systems Review of systems are currently negative otherwise addressed in HPI. Allergies: Coded Allergies: Levofloxacin (Verified Allergy, Unknown, 02/08/23) Magnesium Salicylate (Verified Allergy, Unknown, 02/08/23) Sulfa Drugs (Verified Allergy, Unknown, 02/08/23) Medications Current Medications Medications Dose Ordered Sig/Monse Route Start Time Stop Time Status Last Admin Dose Admin Ceftriaxone Sodium 50 ml @ 100 mls/hr DAILY@2100 IV 05/15/24 21:00 Metronidazole 100 ml @ 100 mls/hr Q8HR IV 05/15/24 06:00 Amlodipine Besylate 5 mg DAILY PO 05/15/24 10:00 Atorvastatin Calcium 20 mg HS PO 05/15/24 22:00 Levothyroxine Sodium 75 mcg QAM@0600 PO 05/15/24 06:00 Metoprolol Tartrate 50 mg BID PO 05/15/24 10:00 Diagnostic Test (Pha) 1 strip Q6HR 05/15/24 00:00 05/14/24 23:57 1 STRIP Insulin Human Regular Q6HR SC 05/15/24 00:00 05/15/24 00:00 4 UNITS Dextrose 50 ml UD PRN IV 05/14/24 23:30 Acetaminophen/ Hydrocodone Bitart 1 tab Q4HP PRN PO 05/14/24 23:30 Ondansetron HCl 4 mg Q4HP PRN IV 05/14/24 23:30 Acetaminophen 650 mg Q6HP PRN PO 05/14/24 23:30 Nitroglycerin 0.4 mg Q5MINP PRN SL 05/14/24 23:30 Morphine Sulfate 2 mg Q30M PRN IV 05/14/24 23:30 Exam Vital Signs Vital Signs Date Time Temp Pulse Resp B/P (MAP) Pulse Ox O2 Delivery O2 Flow Rate FiO2 05/15/24 00:50 79 17 99 Nasal Cannula* 2 28 05/15/24 00:00 98.0 130/42 (71) 98.0 Exam Gen: 79-year-old female in mild distress Skin: Warm, dry, normal color and texture, no rash. HEENT: Normocephalic atraumatic, mucous membranes moist and pink. Neck: Cervical and supraclavicular nodes normal without enlargement, trachea is midline, thyroid gland is normal without masses. Pulmonary: Clear to auscultation and percussion bilaterally. Cardiac: Regular rate and rhythm. No murmur Abdomen: Soft, lower abdominal tenderness, nondistended, bowel sounds present all 4 quadrants, no guarding, no rigidity, no organomegaly. Extremities: No cyanosis, clubbing, no edema Neuro: Cranial nerves II through XII grossly intact, normal affect and speech, no focal motor deficits. Labs/Xrays ORDERING PHYSICIAN: LIMA MABRY MD PROCEDURE(s): ABPL - CT AB PEL WO CON-NO ORAL OR IV REASON: abd pain ORDER NUMBER(s): [id number], ACCESSION NUMBER(s): [id number] CT SCAN ABDOMEN AND PELVIS WITHOUT CONTRAST CLINICAL HISTORY: abd pain TECHNIQUE: Helical axial images are obtained from the lung bases through the pelvis without oral contrast. No intravenous contrast was administered. Coronal and sagittal reformatted images were generated from thin section reconstructions. One or more of the following radiation dose reduction techniques were used for this examination: automated exposure control, adjustment of the mA and/or kV according to patient size, use of iterative reconstruction technique. COMPARISON: CT CT AB PEL WO CON-NO ORAL OR IV on DOS: 02/14/24 FINDINGS: LOWER THORAX: Small, patchy atelectasis / infiltrate in the medial right lower lobe. Correlate to exclude pulmonary infection. Coronary artery calcifications. ABDOMEN AND PELVIS: Evaluation of visceral and vascular structures is limited due to lack of contrast administration. Decreased hepatic parenchymal attenuation which is most commonly secondary to fatty infiltration. The gallbladder is surgically absent. No appreciable biliary ductal dilatation. The spleen, pancreas and adrenals appear grossly unremarkable. No hydroureteronephrosis or sizable, obstructing urinary tract calculi identified. Aortoiliac atherosclerotic calcifications. No evidence of abdominal aortic aneurysm. Fluid content in the stomach and small bowel. No overt dilatation to suggest obstruction at this time. Normal caliber appendix. Scattered colonic diverticuli. No definite CT evidence of diverticulitis. Fluid content is also noted throughout the colon. No free intraperitoneal air or fluid identified. Pelvic structures somewhat obscured by streak artifact from right hip arthroplasty. No definite bladder calculus as visualized. Uterine c alcifications. Degenerative changes of the thoracic and lumbar spine. IMPRESSION: No bowel obstruction, free intraperitoneal air/ fluid or sizable inflammatory collections identified on this noncontrast examination. Fluid content noted throughout the small and large bowel is nonspecific but can be seen with enteritis as well as other diarrheal/malabsorptive conditions. Please correlate clinically. Other findings as above. Labs Test 05/14/24 23:55 05/14/24 23:34 05/14/24 21:34 Range/Units POC Glucose 204 H 70-106 mg/dl Lactic Acid Level 3.3 *H 0.4-2.0 mmol/L White Blood Count 13.6 H 4.4-10.8 10^3/uL Red Blood Count 4.63 4.0-5.20 10^6/uL Hemoglobin 12.7 12.2-16.2 g/dL Hematocrit 39.7 36.0-46.0 % Mean Corpuscular Volume 85.7 80.0-100.0 fL Mean Corpuscular Hemoglobin 27.4 L 28.0-32.0 pg Mean Corpuscular Hemoglobin Concent 32.0 32.0-36.0 g/dL Red Cell Distribution Width 15.5 H 11.8-14.3 % Platelet Count 213 140-450 10^3/uL Mean Platelet Volume 7.8 6.9-10.8 fL Neutrophils (%) (Auto) 87.2 H 37.0-80.0 % Lymphocytes (%) (Auto) 6.7 L 10.0-50.0 % Monocytes (%) (Auto) 5.4 0.0-12.0 % Eosinophils (%) (Auto) 0.5 0.0-7.0 % Basophils (%) (Auto) 0.2 0.0-2.0 % Neutrophils # (Auto) 11.8 H 1.6-8.6 10 ^3/uL Lymphocytes # (Auto) 0.9 0.4-5.4 10 ^3/uL Monocytes # (Auto) 0.7 0-1.3 10 ^3/uL Eosinophils # (Auto) 0.1 0-0.8 10 ^3/uL Basophils # (Auto) 0 0-0.2 10 ^3/uL Nucleated Red Blood Cells 0.1 % Prothrombin Time 10.8 9.3-11.8 sec Prothrombin Time INR 1.02 0.9-1.15 Activated Partial Thromboplast Time 25.0 24.5-34.5 SEC Sodium Level 136 136-145 mmol/L Potassium Level 3.8 3.5-5.1 mmol/L Chloride Level 98 98-107 mmol/L Carbon Dioxide Level 26 20-31 mmol/L Anion Gap 12 5-15 Blood Urea Nitrogen 25 H 9-23 mg/dL Creatinine 1.26 H 0.550-1.02 mg/dL Glomerular Filtration Rate Calc 44 >90 mL/min BUN/Creatinine Ratio 19.8 10.0-20.0 Serum Glucose 278 H 74-106 mg/dL Calcium Level 10.1 8.7-10.4 mg/dL Total Bilirubin 0.6 0.2-1.0 mg/dL Aspartate Amino Transferase (AST) 22 13-40 U/L Alanine Aminotransferase (ALT) 18 7-40 U/L Alkaline Phosphatase 53 46-116 U/L Troponin I High Sensitivity < 3 L </=34 ng/L Total Protein 7.2 5.7-8.2 g/dL Albumin 4.5 3.2-4.8 g/dL Lipase 118 H 12-53 U/L Assessment/Plan Assessment/Plan Assessment Acute abdominal pain Acute colitis Hypertension Diabetes mellitus Plan Admit the patient to [facility] to the hospitalist Clear liquid diet Stool pending Rocephin/Flagyl Pain management Continue treatment per orders. Plan discussed with: Patient My Orders Orders - PITER ACUNA AGACNP Procedure Category Date Status Time Ceftriaxone 1gm/50ml PHA 2 In Process D5w (Rocephin) 21:00 Metronidazole PHA 2/07/04 In Process 500mg/100ml (Flagyl 06:00 Stool Bacterial SERGEY 05/14/24 Logged Culture 23:25 Amlodipine Tablet PHA 05/15/24 In Process (Norvasc Tablet) 10:00 Atorvastatin (Lipitor) PHA 05/15/24 In Process 22:00 Levothyroxine Tablet PHA 05/15/24 In Process (Synthroid Tablet) 06:00 Metoprolol Tartrate PHA 05/15/24 In Process Tablet (Lopressor Ta 10:00 Basic Metabolic Panel LAB 05/15/24 Logged 04:00 Glucose Blood PHA 05/15/24 In Process (Accu-Chek Comfort 00:00 Insulin R (Human) PHA 05/15/24 In Process (Insulin R) 00:00 Dextrose 50% Syringe PHA 05/14/24 In Process 23:30 Admit ADMIT 05/14/24 Transmitted 23:25 Hydrocodone-Acet PHA 05/14/24 In Process 5/325mg Tab (Sigel 23:30 Ondansetron Hcl PHA 05/14/24 In Process (Zofran) 23:30 Complete Blood Count LAB 05/15/24 Logged 04:00 Condition: Stable GERMAINE 05/14/24 In Process 23:25 Acetaminophen Tablet PHA 05/14/24 In Process (Tylenol Tablet) 23:30 Clear Liq Diet DIET 05/15/24 Transmitted Breakfast Bedrest With Bathroom GERMAINE 05/14/24 In Process Privileg 23:25 Nitroglycerin PHA 05/14/24 In Process Sublingual (Ntrostat 23:30 Morphine Sulfate PHA 05/14/24 In Process Injection 23:30 Stat Ekg For Chest GERMAINE 05/14/24 In Process Pain 23:25 Notify Of Changes GERMAINE 05/14/24 In Process From Base 23:25 Interactive Project Manager For GERMAINE 05/14/24 In Process 24 Hours 23:25 Emergency Dysrhythmia GERMAINE 05/14/24 In Process Protocol 23:25 Rhythm Strips Once GERMAINE 05/14/24 In Process Every Shift 23:25 Oxygen By Nasal RT 05/14/24 Transmitted Cannula 23:25 NS PHA 05/15/24 Transmitted 01:00 Date of Service: May 14, 2024 Billing Provider: PITER ACUNA Common Visit Codes: [id number] INP/OBS CARE (HIGH) PITER ACUNA May 15, 2024 00:58
[2024-05-15] MEDS: SODIUM CHLORIDE 0.9% 500 ML IV ONE ×2 (01:46→11:00)
[2024-05-15 01:55] LABS: Urine Bacteria None Seen /hpf (None Seen)
[2024-05-15 02:13] LABS: Urine Blood 1+ /uL (Negative); Urine Clarity Turbid (Clear); Urine Color Yellow (Yellow); Urine Hyaline Cast FEW /lpf (0 - 2); Urine Mucus FEW (None Seen); Urine Protein, UAD 1+ (Negative); Urine Specific Gravity 1.022 (1.001-1.035); Urine Squamous Epithelial Cell FEW /hpf (<5); Urine Urobilinogen Normal (Negative); Urine WBC 21 /HPF (0-5)
[2024-05-15] MEDS: HYDROcodone-ACET 5/325MG TAB PO PRN (03:30)
[2024-05-15] MEDS: LEVOTHYROXINE SODIUM 25 MCG TAB PO SCH (05:31)
[2024-05-15] MEDS: metroNIDAZOLE 500MG/100ML 100 ML IV SCH (05:32)
--- NOTE | 2024-05-15 06:13 | ECG ---
[facility] Test Date: 2024-05-14 Test Time: 21:13:45 Pat Name: SUSANA BROOKS Department: ED Room: [facility] A Gender: F Application Developer: SG : 1945 Requested By: LIMA MABRY Order Number: [id number] Reading MD: Ian Berrios Measurements Intervals [place] Rate: 81 P: 67 [place]: 179 QRS: 58 QRSD: 78 T: 52 QT: 357 QTc: 415 Interpretive Statements Sinus rhythm Electronically Signed On 05-15-2024 21:13:04 PST by Ian Berrios Please click the below link to view image of tracing.
[2024-05-15 08:24] LABS: Anion Gap 12 (5-15); Carbon Dioxide 22 mmol/L (20-31); Potassium 3.8 mmol/L (3.5-5.1); Sodium 141 mmol/L (136-145)
[2024-05-15 08:28] LABS: Basophils # (auto) 0 10 ^3/uL (0-0.2); Basophils % (auto) 0.3 % (0.0-2.0); Eosinophils # (auto) 0 10 ^3/uL (0-0.8); Eosinophils % (auto) 0.6 % (0.0-7.0); Hematocrit 34.3 % (36.0-46.0); Hemoglobin 10.8 g/dL (12.2-16.2); Lymphocytes # (auto) 0.7 10 ^3/uL (0.4-5.4); Lymphocytes % (auto) 8.5 % (10.0-50.0); Mean Corpuscular Hemoglobin 27.9 pg (28.0-32.0); Mean Corpuscular Hgb Conc. 31.5 g/dL (32.0-36.0); Mean Corpuscular Volume 88.3 fL (80.0-100.0); Monocytes # (auto) 0.8 10 ^3/uL (0-1.3); Monocytes % (auto) 10.2 % (0.0-12.0); Neutrophils # (auto) 6.2 10 ^3/uL (1.6-8.6); Neutrophils % (auto) 80.4 % (37.0-80.0); Nucleated Red Blood Cells % 0.2 %; Platelet Count (auto) 184 10^3/uL (140-450); Red Blood Cells 3.88 10^6/uL (4.0-5.20); White Blood Cell 7.7 10^3/uL (4.4-10.8)
[2024-05-15 08:30] LABS: BUN/Creatinine Ratio 23.8 (10.0-20.0); Glucose 99 mg/dL (74-106)
[2024-05-15 08:33] LABS: Blood Urea Nitrogen 24 mg/dL (9-23); Chloride 107 mmol/L (98-107)
--- NOTE | 2024-05-15 09:07 | DVH ---
EXAM: XY CHEST XRAY 1 VIEW Indication: dyspena Technique: Single frontal view of the chest was obtained Comparison: XY CHEST PORTABLE on DOS: 02/08/23, EKG on DOS: 02/16/22, CHEST PORTABLE on DOS: 02/16/22, CXRP on DOS: 02/16/22, EKG on DOS: 02/16/22 FINDINGS: Lines and Tubes: None Lungs: No focal consolidation. Pleura: No effusion. No pneumothorax. Cardiomediastinal contours: Unremarkable Bones: No acute osseous abnormality. IMPRESSION: No acute cardiopulmonary disease.
[2024-05-15] MEDS: amLODIPine BESYLATE 5 MG TAB PO SCH (10:05)
[2024-05-15] MEDS: SODIUM CHLORIDE 0.9% 1,000 ML IV SCH (10:06)
[2024-05-15] MEDS: FLORASTOR (S. BOULARDII) 250 MG CAP PO SCH (10:06)
[2024-05-15] MEDS: METOPROLOL TARTRATE 50 MG TAB PO SCH (10:06)
[2024-05-15] MEDS: ACETAMINOPHEN 325 MG TAB PO PRN (13:02)
--- NOTE | 2024-05-15 14:49 | DVHPNRES ---
Progress Note Date Seen: May 15, 2024 Resident Creating Document: DG TAVAERZ RESIDENT Has the PT tested + for MRSA If YES, has PT been informed?: No Medical Necessity Reason Pt with a Central, PICC or Fol: No Subjective Review of Systems 79 y/o F, with Hx of rheumatoid arthritis, obesity, thyroid disease, DM, HTN, TIA, cholecystectomy, and appendectomy, is BIBA for c/o non-radiating, lower abdominal pain, nausea, vomiting, and diarrhea, today. Patient endorses on onset of symptoms following eating dinner, last night. Patient comments on having pain in the past and no recent sick contact or known spoiled food intake. She denies having any hematemesis, hematochezia, fever, chills, or other associated symptoms or modifiers at this time. Per EMS report, patient was found with a blood glucose of 222 and was given 4mg of Zofran PO. Objective vital signs Vital Sign Date Time Temp Pulse Resp B/P (MAP) Pulse Ox O2 Delivery O2 Flow Rate FiO2 05/15/24 13:02 100.5 05/15/24 10:06 85 116/61 05/15/24 09:00 17 98 05/15/24 07:40 Nasal Cannula* 2 28 Total Intake and Output 05/14/24 05/14/24 05/15/24 15:00 23:00 07:00 Intake Total 1000 ml 1752 ml Balance 1000 ml 1752 ml medications Current Medications Medications Dose Ordered Sig/Monse Route Start Time Stop Time Status Last Admin Dose Admin Ceftriaxone Sodium 50 ml @ 100 mls/hr DAILY@2100 IV 05/15/24 21:00 Metronidazole 100 ml @ 100 mls/hr Q8HR IV 05/15/24 06:00 05/15/24 05:32 100 MLS/HR Amlodipine Besylate 5 mg DAILY PO 05/15/24 10:00 05/15/24 10:05 5 MG Atorvastatin Calcium 20 mg HS PO 05/15/24 22:00 Levothyroxine Sodium 75 mcg QAM@0600 PO 05/15/24 06:00 05/15/24 05:31 75 MCG Metoprolol Tartrate 50 mg BID PO 05/15/24 10:00 05/15/24 10:06 50 MG Diagnostic Test (Pha) 1 strip Q6HR 05/15/24 00:00 05/15/24 11:32 1 STRIP Insulin Human Regular Q6HR SC 05/15/24 00:00 05/15/24 00:00 4 UNITS Dextrose 50 ml UD PRN IV 05/14/24 23:30 Acetaminophen/ Hydrocodone Bitart 1 tab Q4HP PRN PO 05/14/24 23:30 05/15/24 03:30 1 TAB Ondansetron HCl 4 mg Q4HP PRN IV 05/14/24 23:30 Acetaminophen 650 mg Q6HP PRN PO 05/14/24 23:30 05/15/24 13:02 650 MG Nitroglycerin 0.4 mg Q5MINP PRN SL 05/14/24 23:30 Morphine Sulfate 2 mg Q30M PRN IV 05/14/24 23:30 Sodium Chloride 1,000 ml @ 75 mls/hr [id number] IV 05/15/24 08:30 05/15/24 10:06 75 MLS/HR Saccharomyces Boulardii 250 mg DAILY PO 05/15/24 10:00 05/15/24 10:06 250 MG Examination Gen: 79-year-old female in mild distress Skin: Warm, dry, normal color and texture, no rash. HEENT: Normocephalic atraumatic, mucous membranes moist and pink. Neck: Cervical and supraclavicular nodes normal without enlargement, trachea is midline, thyroid gland is normal without masses. Pulmonary: Clear to auscultation and percussion bilaterally. Cardiac: Regular rate and rhythm. No murmur Abdomen: Soft, lower abdominal tenderness, nondistended, bowel sounds present all 4 quadrants, no guarding, no rigidity, no organomegaly. 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 laboratory and microbiology Laboratory Tests 05/15/24 06:29 Test 05/15/24 06:29 Range/Units Serum Glucose 99 74-106 mg/dL Microbiology Date/Time Source Procedure Growth Status 05/15/24 03:40 Stool Clostridium difficile Toxin Assay - Final Complete Problem List/Assessment/Plan Problem List/Assessment/Plan #Sepsis due to acute possible bacterial gastroenteritis #UTI #H/o of RA #DM type 2 #Hypertension #Hypothyrodisim #Hyperlipidimia Clear liquid diet IV fluid 75 cc/h Ceftriaxone + metronidazole IV Florastosol Urine culture Hold on BP meds Mild slinding scale Case discussed with Dr Parham Time spent on care 23 min Plan discussed with: Patient, Other (rn) My Orders My Orders Orders - DG TAVAREZ RESIDENT Procedure Category Date Status Time Chest Xray 1 View XY 05/15/24 Resulted 07:50 Sodium Chloride 0.9% PHA 05/15/24 In Process 08:30 Florastor (S. PHA 05/15/24 In Process Boulardii) (Florastor) 10:00 Dietary Evaluation Review Comments: advance to low fat CCHO-60 diet when pt is able to eat and medically feasible. Expected Outcomes/Goals: controlled DM, gradual wt loss. Date of Service: May 15, 2024 Billing Provider: ROBIN PARHAM MD Common Visit Codes: [id number] INP/OBS CARE(HIGH) DG TAVAREZ RESIDENT May 15, 2024 14:49 ROBIN PARHAM MD May 16, 2024 09:18
[2024-05-15] MEDS: cefTRIAXone 1GM/50ML D5W 50 ML IV SCH (20:42)
[2024-05-15] MEDS: ATORVASTATIN 20 MG TAB PO SCH (21:44)
[2024-05-15] MEDS: ONDANSETRON HCL 4 MG/2 ML VIAL IV PRN (23:02)
[2024-05-16] VITALS (7 sets, daily range): BP systolic 120–141; BP diastolic 53–79; PULSE 86–118; RESP 17–19; TEMP 97.8–99.4; O2SAT 93–97
--- NOTE | 2024-05-16 13:38 | DVHPNRES ---
Progress Note Date Seen: May 16, 2024 Resident Creating Document: DG TAVAREZ RESIDENT Has the PT tested + for MRSA If YES, has PT been informed?: No Medical Necessity Reason Pt with a Central, PICC or Fol: No Subjective Review of Systems 79 y/o F, with Hx of rheumatoid arthritis, obesity, thyroid disease, DM, HTN, TIA, cholecystectomy, and appendectomy, is BIBA for c/o non-radiating, lower abdominal pain, nausea, vomiting, and diarrhea, today. Patient endorses on onset of symptoms following eating dinner, last night. Patient comments on having pain in the past and no recent sick contact or known spoiled food intake. She denies having any hematemesis, hematochezia, fever, chills, or other associated symptoms or modifiers at this time. Per EMS report, patient was found with a blood glucose of 222 and was given 4mg of Zofran PO. Objective vital signs Vital Sign Date Time Temp Pulse Resp B/P (MAP) Pulse Ox O2 Delivery O2 Flow Rate FiO2 05/16/24 12:50 98.7 103 19 130/60 (83) 97 98.7 05/15/24 20:00 Room Air* 0 21 Total Intake and Output 05/15/24 05/15/24 05/16/24 15:00 23:00 07:00 Intake Total 900 ml 450 ml Output Total 4 ml Balance 896 ml 450 ml medications Current Medications Medications Dose Ordered Sig/Monse Route Start Time Stop Time Status Last Admin Dose Admin Ceftriaxone Sodium 50 ml @ 100 mls/hr DAILY@2100 IV 05/15/24 21:00 05/15/24 20:42 100 MLS/HR Metronidazole 100 ml @ 100 mls/hr Q8HR IV 05/15/24 06:00 05/16/24 05:44 100 MLS/HR Amlodipine Besylate 5 mg DAILY PO 05/15/24 10:00 05/15/24 10:05 5 MG Atorvastatin Calcium 20 mg HS PO 05/15/24 22:00 05/15/24 21:44 20 MG Levothyroxine Sodium 75 mcg QAM@0600 PO 05/15/24 06:00 05/16/24 05:45 75 MCG Metoprolol Tartrate 50 mg BID PO 05/15/24 10:00 05/15/24 21:44 50 MG Diagnostic Test (Pha) 1 strip Q6HR 05/15/24 00:00 05/16/24 12:00 1 STRIP Insulin Human Regular Q6HR SC 05/15/24 00:00 05/16/24 12:00 3 UNITS Dextrose 50 ml UD PRN IV 05/14/24 23:30 Acetaminophen/ Hydrocodone Bitart 1 tab Q4HP PRN PO 05/14/24 23:30 05/16/24 05:32 1 TAB Ondansetron HCl 4 mg Q4HP PRN IV 05/14/24 23:30 05/16/24 12:32 4 MG Acetaminophen 650 mg Q6HP PRN PO 05/14/24 23:30 05/15/24 13:02 650 MG Nitroglycerin 0.4 mg Q5MINP PRN SL 05/14/24 23:30 Morphine Sulfate 2 mg Q30M PRN IV 05/14/24 23:30 Sodium Chloride 1,000 ml @ 75 mls/hr [id number] IV 05/15/24 08:30 05/16/24 11:10 75 MLS/HR Saccharomyces Boulardii 250 mg DAILY PO 05/15/24 10:00 05/16/24 10:56 250 MG Examination Gen: 79-year-old female in mild distress Skin: Warm, dry, normal color and texture, no rash. HEENT: Normocephalic atraumatic, mucous membranes moist and pink. Neck: Cervical and supraclavicular nodes normal without enlargement, trachea is midline, thyroid gland is normal without masses. Pulmonary: Clear to auscultation and percussion bilaterally. Cardiac: Regular rate and rhythm. No murmur Abdomen: Soft, lower abdominal tenderness, nondistended, bowel sounds present all 4 quadrants, no guarding, no rigidity, no organomegaly. 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 laboratory and microbiology Laboratory Tests 05/15/24 06:29 Test 05/15/24 06:29 Range/Units Serum Glucose 99 74-106 mg/dL Microbiology Date/Time Source Procedure Growth Status 05/15/24 03:40 Stool Clostridium difficile Toxin Assay - Final Complete Problem List/Assessment/Plan Problem List/Assessment/Plan #Sepsis due to acute possible bacterial gastroenteritis #UTI #H/o of RA #DM type 2 #Hypertension #Hypothyrodisim #Hyperlipidimia Clear liquid diet IV fluid 75 cc/h Ceftriaxone + metronidazole IV Florastor Urine culture Hold on BP meds Insulin Mild sliding scale Case discussed with Dr Parham Time spent on care 23 min Plan discussed with: Patient, Other (rn) My Orders My Orders Orders - DG TAVAREZ RESIDENT Procedure Category Date Status Time Urine Bacterial SERGEY 05/15/24 Uncollected Culture 14:45 Pt Request For Service PT 05/16/24 Logged 08:36 Dietary Evaluation Review Comments: advance to low fat CCHO-60 diet when pt is able to eat and medically feasible. Expected Outcomes/Goals: controlled DM, gradual wt loss. Date of Service: May 16, 2024 Billing Provider: ROBIN PARHAM MD Common Visit Codes: [id number] INP/OBS CARE(HIGH) DG TAVAREZ RESIDENT May 16, 2024 13:38 ROBIN PARHAM MD May 21, 2024 18:09
[2024-05-17 01:00] VITALS: BP 118/85; PULSE 109; RESP 19; TEMP 98.9; O2SAT 96
[2024-05-17 05:00] VITALS: BP 142/66; PULSE 107; RESP 18; TEMP 98.1; O2SAT 97
[2024-05-17 08:20] VITALS: BP 114/51; PULSE 107; RESP 16; TEMP 98.5; O2SAT 94
[2024-05-17 11:11] LABS: Basophils # (auto) 0 10 ^3/uL (0-0.2); Basophils % (auto) 0.2 % (0.0-2.0); Eosinophils # (auto) 0 10 ^3/uL (0-0.8); Eosinophils % (auto) 0.2 % (0.0-7.0); Hematocrit 37.7 % (36.0-46.0); Hemoglobin 12.2 g/dL (12.2-16.2); Lymphocytes # (auto) 0.5 10 ^3/uL (0.4-5.4); Lymphocytes % (auto) 10.2 % (10.0-50.0); Mean Corpuscular Hemoglobin 27.1 pg (28.0-32.0); Mean Corpuscular Hgb Conc. 32.3 g/dL (32.0-36.0); Monocytes # (auto) 0.6 10 ^3/uL (0-1.3); Monocytes % (auto) 11.9 % (0.0-12.0); Neutrophils # (auto) 3.9 10 ^3/uL (1.6-8.6); Neutrophils % (auto) 77.5 % (37.0-80.0); Nucleated Red Blood Cells % 0.1 %; Platelet Count (auto) 164 10^3/uL (140-450); Red Blood Cells 4.49 10^6/uL (4.0-5.20); Red Cell Distribution Width 15.8 % (11.8-14.3)
[2024-05-17 11:36] LABS: Alanine Aminotransferase 10 U/L (7-40); Anion Gap 11 (5-15); Chloride 106 mmol/L (98-107); Sodium 137 mmol/L (136-145)
[2024-05-17 11:37] LABS: Aspartate Aminotransferase 27 U/L (13-40); BUN/Creatinine Ratio 8.8 (10.0-20.0)
[2024-05-17 11:39] LABS: Total Protein 6.2 g/dL (5.7-8.2)
[2024-05-17 11:45] VITALS: BP 114/63; PULSE 111; RESP 15; TEMP 98.4; O2SAT 99
[2024-05-17 11:47] LABS: Alkaline Phosphatase 37 U/L (46-116); Bilirubin, Total 0.3 mg/dL (0.2-1.0); Blood Urea Nitrogen 8 mg/dL (9-23); Calcium 7.8 mg/dL (8.7-10.4); Carbon Dioxide 20 mmol/L (20-31); Glucose 150 mg/dL (74-106); Potassium 3.4 mmol/L (3.5-5.1)
--- NOTE | 2024-05-17 13:02 | ECG ---
[facility] Test Date: 2024-05-17 Test Time: 11:35:24 Pat Name: SUSANA BROOKS Department: Room: [facility]5 A Gender: F Waitstaff: sosa : 1945 Requested By: DG SOLIS Order Number: [id number] Reading MD: Ian Berrios Measurements Intervals [place] Rate: 115 P: 70 [place]: 164 QRS: 54 QRSD: 84 T: 23 QT: 333 QTc: 461 Interpretive Statements Sinus tachycardia Low voltage, extremity leads Electronically Signed On 05-17-2024 13:18:46 PST by Ian Berrios Please click the below link to view image of tracing.
[2024-05-17] MEDS ORDERED: POTASSIUM CHL 20MEQ/100ML 100 ML IV SCH (13:30)
[2024-05-17] MEDS: PANTOPRAZOLE 40 MG/10 ML VIAL INJ IV SCH (15:21)
[2024-05-17] MEDS: METOCLOPRAMIDE HCL 5MG/ml INJ 2ml VIAL IV SCH (15:22)
[2024-05-17] MEDS: POTASSIUM CHL 20 Meq TABLET PO ONE (15:22)
[2024-05-17 17:12] VITALS: BP 130/64; PULSE 126; RESP 19; TEMP 99; O2SAT 96
--- NOTE | 2024-05-17 18:33 | DVHPNRES ---
Progress Note Date Seen: May 17, 2024 Resident Creating Document: DG TAVAREZ RESIDENT Has the PT tested + for MRSA If YES, has PT been informed?: No Medical Necessity Reason Pt with a Central, PICC or Fol: No Subjective Review of Systems 79 y/o F, with Hx of rheumatoid arthritis, obesity, thyroid disease, DM, HTN, TIA, cholecystectomy, and appendectomy, is BIBA for c/o non-radiating, lower abdominal pain, nausea, vomiting, and diarrhea Objective vital signs Vital Sign Date Time Temp Pulse Resp B/P (MAP) Pulse Ox O2 Delivery O2 Flow Rate FiO2 05/17/24 17:36 99.0 05/17/24 17:12 126 19 130/64 (86) 96 05/17/24 08:00 Room Air* 0 21 Total Intake and Output 05/16/24 05/16/24 05/17/24 15:00 23:00 07:00 Intake Total 250 ml 150 ml Balance 250 ml 150 ml medications Current Medications Medications Dose Ordered Sig/Monse Route Start Time Stop Time Status Last Admin Dose Admin Ceftriaxone Sodium 50 ml @ 100 mls/hr DAILY@2100 IV 05/15/24 21:00 05/16/24 20:52 100 MLS/HR Metronidazole 100 ml @ 100 mls/hr Q8HR IV 05/15/24 06:00 05/17/24 14:34 100 MLS/HR Amlodipine Besylate 5 mg DAILY PO 05/15/24 10:00 05/15/24 10:05 5 MG Atorvastatin Calcium 20 mg HS PO 05/15/24 22:00 05/16/24 21:53 20 MG Levothyroxine Sodium 75 mcg QAM@0600 PO 05/15/24 06:00 05/17/24 05:28 75 MCG Metoprolol Tartrate 50 mg BID PO 05/15/24 10:00 05/15/24 21:44 50 MG Diagnostic Test (Pha) 1 strip Q6HR 05/15/24 00:00 05/17/24 17:36 1 STRIP Insulin Human Regular Q6HR SC 05/15/24 00:00 05/17/24 17:40 2 UNITS Dextrose 50 ml UD PRN IV 05/14/24 23:30 Acetaminophen/ Hydrocodone Bitart 1 tab Q4HP PRN PO 05/14/24 23:30 05/17/24 15:52 1 TAB Ondansetron HCl 4 mg Q4HP PRN IV 05/14/24 23:30 05/16/24 17:46 4 MG Acetaminophen 650 mg Q6HP PRN PO 05/14/24 23:30 05/17/24 17:36 650 MG Nitroglycerin 0.4 mg Q5MINP PRN SL 05/14/24 23:30 Morphine Sulfate 2 mg Q30M PRN IV 05/14/24 23:30 Sodium Chloride 1,000 ml @ 75 mls/hr [id number] IV 05/15/24 08:30 05/17/24 13:55 75 MLS/HR Saccharomyces Boulardii 250 mg DAILY PO 05/15/24 10:00 05/17/24 09:41 250 MG Enoxaparin Sodium 40 mg DAILY SC 05/17/24 22:00 Metoclopramide HCl 10 mg Q8HR IV 05/17/24 15:00 05/17/24 15:22 10 MG Pantoprazole Sodium 40 mg DAILY IV 05/17/24 15:00 05/17/24 15:21 40 MG Examination Gen: 79-year-old female in mild distress Skin: Warm, dry, normal color and texture, no rash. HEENT: Normocephalic atraumatic, mucous membranes moist and pink. Neck: Cervical and supraclavicular nodes normal without enlargement, trachea is midline, thyroid gland is normal without masses. Pulmonary: Clear to auscultation and percussion bilaterally. Cardiac: Regular rate and rhythm. No murmur Abdomen: Soft, lower abdominal tenderness, nondistended, bowel sounds present all 4 quadrants, no guarding, no rigidity, no organomegaly. 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 laboratory and microbiology Laboratory Tests 05/17/24 10:45 Test 05/17/24 10:45 Range/Units Serum Glucose 150 H 74-106 mg/dL Microbiology Date/Time Source Procedure Growth Status 05/15/24 03:40 Stool Clostridium difficile Toxin Assay - Final Complete Problem List/Assessment/Plan Problem List/Assessment/Plan #Sepsis due to acute possible bacterial gastroenteritis/UTI #UTI #H/o of RA #DM type 2 #Hypertension #Hypothyrodisim #Hyperlipidemia #Hypokalemia #Tachycardia Clear liquid diet IV fluid 75 cc/h Ceftriaxone + metronidazole IV Florastor Urine culture pending Keep the amlodipine for BP only Reglan and zofran for nausea K PO ECG: sinus tachycardia: lactate and CRP levels for tomorrow Patient still doing mild fevers, still having diarrhea and emesis Case discussed with Dr Parham Time spent on care 23 min Plan discussed with: Patient, Other My Orders My Orders Orders - DG TAVAREZ RESIDENT Procedure Category Date Status Time Electrocardigram EKG 05/17/24 Resulted 09:43 Metoclopramide PHA 05/17/24 In Process Injection (Reglan 15:00 Pantoprazole PHA 05/17/24 In Process (Protonix) 15:00 Dietary Evaluation Review Comments: advance to low fat CCHO-60 diet when pt is able to eat and medically feasible. Expected Outcomes/Goals: controlled DM, gradual wt loss. Date of Service: May 17, 2024 Billing Provider: ROBIN PARHAM MD Common Visit Codes: [id number] INP/OBS CARE(HIGH) DG TAVAREZ RESIDENT May 17, 2024 18:33 ROBIN PARHAM MD May 21, 2024 18:10
[2024-05-17 21:00] VITALS: BP 141/62; PULSE 113; RESP 18; TEMP 98.6; O2SAT 95
[2024-05-17] MEDS ORDERED: METOCLOPRAMIDE HCL 5MG/ml INJ 2ml VIAL IV SCH (22:00)
[2024-05-17] MEDS: ENOXAPARIN SOD 40 MG/0.4 ML SYRINGE SC SCH (23:40)
[2024-05-18] VITALS (12 sets, daily range): BP systolic 108–156; BP diastolic 58–84; PULSE 91–122; RESP 16–21; TEMP 97.5–98.8; O2SAT 93–98
[2024-05-18 06:34] LABS: Basophils # (auto) 0 10 ^3/uL (0-0.2); Basophils % (auto) 0.3 % (0.0-2.0); Eosinophils # (auto) 0 10 ^3/uL (0-0.8); Eosinophils % (auto) 0.6 % (0.0-7.0); Hemoglobin 11.6 g/dL (12.2-16.2); Lymphocytes # (auto) 0.7 10 ^3/uL (0.4-5.4); Lymphocytes % (auto) 16.9 % (10.0-50.0); Mean Corpuscular Hemoglobin 27.2 pg (28.0-32.0); Mean Corpuscular Hgb Conc. 32.2 g/dL (32.0-36.0); Mean Corpuscular Volume 84.4 fL (80.0-100.0); Monocytes # (auto) 0.6 10 ^3/uL (0-1.3); Monocytes % (auto) 13.2 % (0.0-12.0); Neutrophils # (auto) 2.9 10 ^3/uL (1.6-8.6); Nucleated Red Blood Cells % 0.3 %; Platelet Count (auto) 161 10^3/uL (140-450); Red Blood Cells 4.26 10^6/uL (4.0-5.20); White Blood Cell 4.3 10^3/uL (4.4-10.8)
[2024-05-18 06:48] LABS: Albumin 3.7 g/dL (3.2-4.8); Anion Gap 10 (5-15); Aspartate Aminotransferase 25 U/L (13-40); Sodium 136 mmol/L (136-145); Total Protein 5.9 g/dL (5.7-8.2)
[2024-05-18 06:57] LABS: Alanine Aminotransferase 9 U/L (7-40); Alkaline Phosphatase 34 U/L (46-116); BUN/Creatinine Ratio 6.3 (10.0-20.0); Bilirubin, Total 0.2 mg/dL (0.2-1.0); Blood Urea Nitrogen < 5 mg/dL (9-23); CRP High Sensitivity 2.03 mg/dL (<1.0); Calcium 7.2 mg/dL (8.7-10.4); Carbon Dioxide 18 mmol/L (20-31); Chloride 108 mmol/L (98-107); Glucose 133 mg/dL (74-106)
[2024-05-18] MEDS: MAGNESIUM SULFATE 1GM/100ML 100 ML IV SCH ×2 (09:00→17:07)
[2024-05-18] MEDS: POTASSIUM CHLORIDE 60 MEQ, LIDOCAINE 1% (LOCAL ANESTH.) 6 ML in SODIUM CHL 0.9% 500 ML IV ONE (09:53)
[2024-05-18] MEDS ORDERED: PANTOPRAZOLE 40 MG/10 ML VIAL INJ IV SCH (10:00)
--- NOTE | 2024-05-18 17:52 | DVHPNRES ---
Progress Note Date Seen: May 18, 2024 Resident Creating Document: DG TAVAREZ RESIDENT Has the PT tested + for MRSA If YES, has PT been informed?: No Medical Necessity Reason Pt with a Central, PICC or Fol: No Subjective Review of Systems 79 y/o F, with Hx of rheumatoid arthritis, obesity, thyroid disease, DM, HTN, TIA, cholecystectomy, and appendectomy, is BIBA for c/o non-radiating, lower abdominal pain, nausea, vomiting, and diarrhea Objective vital signs Vital Sign Date Time Temp Pulse Resp B/P (MAP) Pulse Ox O2 Delivery O2 Flow Rate FiO2 05/18/24 16:35 98.2 118 16 151/74 (99) 95 98.2 05/18/24 08:00 Room Air* 0 21 Total Intake and Output 05/17/24 05/17/24 05/18/24 15:00 23:00 07:00 Intake Total 1050 ml 200 ml Output Total 800 ml Balance 250 ml 200 ml medications Current Medications Medications Dose Ordered Sig/Monse Route Start Time Stop Time Status Last Admin Dose Admin Ceftriaxone Sodium 50 ml @ 100 mls/hr DAILY@2100 IV 05/15/24 21:00 05/17/24 20:21 100 MLS/HR Metronidazole 100 ml @ 100 mls/hr Q8HR IV 05/15/24 06:00 05/18/24 13:24 100 MLS/HR Amlodipine Besylate 5 mg DAILY PO 05/15/24 10:00 05/18/24 11:49 5 MG Atorvastatin Calcium 20 mg HS PO 05/15/24 22:00 05/17/24 23:04 20 MG Levothyroxine Sodium 75 mcg QAM@0600 PO 05/15/24 06:00 05/18/24 05:26 75 MCG Metoprolol Tartrate 50 mg BID PO 05/15/24 10:00 05/15/24 21:44 50 MG Diagnostic Test (Pha) 1 strip Q6HR 05/15/24 00:00 05/18/24 12:06 1 STRIP Insulin Human Regular Q6HR SC 05/15/24 00:00 05/18/24 12:06 2 UNITS Dextrose 50 ml UD PRN IV 05/14/24 23:30 Acetaminophen/ Hydrocodone Bitart 1 tab Q4HP PRN PO 05/14/24 23:30 05/18/24 16:36 1 TAB Ondansetron HCl 4 mg Q4HP PRN IV 05/14/24 23:30 05/16/24 17:46 4 MG Acetaminophen 650 mg Q6HP PRN PO 05/14/24 23:30 05/17/24 17:36 650 MG Nitroglycerin 0.4 mg Q5MINP PRN SL 05/14/24 23:30 Morphine Sulfate 2 mg Q30M PRN IV 05/14/24 23:30 Sodium Chloride 1,000 ml @ 75 mls/hr [id number] IV 05/15/24 08:30 05/18/24 05:43 75 MLS/HR Saccharomyces Boulardii 250 mg DAILY PO 05/15/24 10:00 05/18/24 09:52 250 MG Enoxaparin Sodium 40 mg DAILY SC 05/17/24 22:00 05/18/24 09:52 40 MG Metoclopramide HCl 10 mg Q8HR IV 05/17/24 15:00 05/18/24 13:24 10 MG Pantoprazole Sodium 40 mg DAILY IV 05/17/24 15:00 05/18/24 09:51 40 MG Magnesium Sulfate/ Dextrose 100 ml @ 100 mls/hr Q1HR IV 05/18/24 17:00 05/18/24 18:59 05/18/24 17:07 100 MLS/HR Examination Gen: 79-year-old female in mild distress Skin: Warm, dry, normal color and texture, no rash. HEENT: Normocephalic atraumatic, mucous membranes moist and pink. Neck: Cervical and supraclavicular nodes normal without enlargement, trachea is midline, thyroid gland is normal without masses. Pulmonary: Clear to auscultation and percussion bilaterally. Cardiac: Regular rate and rhythm. No murmur Abdomen: Soft, lower abdominal tenderness, nondistended, bowel sounds present all 4 quadrants, no guarding, no rigidity, no organomegaly. 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 laboratory and microbiology Laboratory Tests 05/18/24 05:46 Test 05/18/24 05:46 Range/Units Serum Glucose 133 H 74-106 mg/dL Microbiology Date/Time Source Procedure Growth Status 05/17/24 10:45 Voided Urine Urine Culture - Preliminary Resulted 05/15/24 03:40 Stool Clostridium difficile Toxin Assay - Final Complete Problem List/Assessment/Plan Problem List/Assessment/Plan #Sepsis due to acute possible bacterial gastroenteritis/UTI #UTI #H/o of RA #DM type 2 #Hypertension #Hypothyrodisim #Hyperlipidemia #Hypokalemia #Tachycardia resolving #Hypomagnesemia #Hypocalcemia #Hypophospathemia #Hyperparathyroidism- likely 2 Advance diet IV fluid 75 cc/h Ceftriaxone + metronidazole IV Florastor Urine culture pendin colonies Keep the amlodipine for BP only Reglan and zofran for nausea K IV ECG: sinus tachycardia: lactate normal and CRP high Mg IV Ph PO Pending VIT D levels Case discussed with Dr Parham Time spent on care 23 min Patient still doing mild fevers, still having diarrhea and emesis Case discussed with Dr Parham Time spent on care 23 min Plan discussed with: Patient, Other My Orders My Orders Orders - DG TAVAREZ RESIDENT Procedure Category Date Status Time Transfer Orders XFER 05/18/24 Transmitted 08:52 Stool Wbc LAB 05/18/24 Logged 09:30 Magnesium Sulfate PHA 05/18/24 In Process 1gm/100ml 17:00 Consistent DIET 05/18/24 Transmitted Carb(Ccho)Diabetes Dinner Dietary Evaluation Review Comments: advance to low fat CCHO-60 diet when pt is able to eat and medically feasible. Expected Outcomes/Goals: controlled DM, gradual wt loss. Date of Service: May 18, 2024 Billing Provider: ROBIN PARHAM MD Common Visit Codes: [id number] INP/OBS CARE(HIGH) DG TAVAREZ RESIDENT May 18, 2024 17:52 ROBIN PARHAM MD May 21, 2024 18:10
[2024-05-19] VITALS (8 sets, daily range): BP systolic 116–151; BP diastolic 50–80; PULSE 74–100; RESP 17–20; TEMP 98.2–99.5; O2SAT 92–100
[2024-05-19] MEDS: MORPHINE SULFATE INJ 2 MG/ml SYRG IV ONE (06:32)
[2024-05-19] MEDS: NEUTRA-PHOS TABLET PO SCH (09:36)
[2024-05-19 11:26] LABS: Basophils # (auto) 0 10 ^3/uL (0-0.2); Basophils % (auto) 0.5 % (0.0-2.0); Eosinophils # (auto) 0.1 10 ^3/uL (0-0.8); Eosinophils % (auto) 1.3 % (0.0-7.0); Hematocrit 35.4 % (36.0-46.0); Hemoglobin 11.6 g/dL (12.2-16.2); Lymphocytes # (auto) 0.8 10 ^3/uL (0.4-5.4); Lymphocytes % (auto) 16.4 % (10.0-50.0); Mean Corpuscular Hemoglobin 27.6 pg (28.0-32.0); Mean Corpuscular Hgb Conc. 32.8 g/dL (32.0-36.0); Mean Corpuscular Volume 84.3 fL (80.0-100.0); Monocytes # (auto) 0.6 10 ^3/uL (0-1.3); Monocytes % (auto) 12.4 % (0.0-12.0); Neutrophils # (auto) 3.3 10 ^3/uL (1.6-8.6); Neutrophils % (auto) 69.4 % (37.0-80.0); Nucleated Red Blood Cells % 0.1 %; Platelet Count (auto) 149 10^3/uL (140-450); Red Cell Distribution Width 15.4 % (11.8-14.3); White Blood Cell 4.7 10^3/uL (4.4-10.8)
[2024-05-19 11:47] LABS: Alanine Aminotransferase 14 U/L (7-40); Albumin 3.7 g/dL (3.2-4.8); Anion Gap 11 (5-15); Aspartate Aminotransferase 29 U/L (13-40); Chloride 105 mmol/L (98-107)
[2024-05-19 12:08] LABS: Alkaline Phosphatase 36 U/L (46-116); BUN/Creatinine Ratio 7.1 (10.0-20.0); Bilirubin, Total 0.3 mg/dL (0.2-1.0); Blood Urea Nitrogen < 5 mg/dL (9-23); Calcium 7.4 mg/dL (8.7-10.4); Carbon Dioxide 18 mmol/L (20-31); Glucose 171 mg/dL (74-106); Potassium 3.4 mmol/L (3.5-5.1); Sodium 134 mmol/L (136-145)
[2024-05-19] MEDS: SODIUM CHLORIDE 0.9% 1,000 ML IV ONE (13:20)
[2024-05-19] MEDS ORDERED: POTASSIUM PHOSPHATE 22 MEQ in SODIUM CHL 0.9% 100 ML IV ONE (13:30)
--- NOTE | 2024-05-19 16:40 | DVHPNRES ---
Progress Note Date Seen: May 19, 2024 Resident Creating Document: DG TAVAREZ RESIDENT Has the PT tested + for MRSA If YES, has PT been informed?: No Medical Necessity Reason Pt with a Central, PICC or Fol: No Subjective Review of Systems 79 y/o F, with Hx of rheumatoid arthritis, obesity, thyroid disease, DM, HTN, TIA, cholecystectomy, and appendectomy, is BIBA for c/o non-radiating, lower abdominal pain, nausea, vomiting, and diarrhea Objective vital signs Vital Sign Date Time Temp Pulse Resp B/P (MAP) Pulse Ox O2 Delivery O2 Flow Rate FiO2 05/19/24 10:35 64 05/19/24 09:35 121/58 05/19/24 09:03 99.4 20 93 99.4 05/19/24 08:05 Room Air* 0 21 Total Intake and Output 05/18/24 05/18/24 05/19/24 15:00 23:00 07:00 Intake Total 600 ml 1800 ml Output Total 1000 ml Balance -400 ml 1800 ml medications Current Medications Medications Dose Ordered Sig/Monse Route Start Time Stop Time Status Last Admin Dose Admin Ceftriaxone Sodium 50 ml @ 100 mls/hr DAILY@2100 IV 05/15/24 21:00 05/18/24 20:58 100 MLS/HR Metronidazole 100 ml @ 100 mls/hr Q8HR IV 05/15/24 06:00 05/19/24 14:39 100 MLS/HR Amlodipine Besylate 5 mg DAILY PO 05/15/24 10:00 05/19/24 09:34 5 MG Atorvastatin Calcium 20 mg HS PO 05/15/24 22:00 05/18/24 21:01 20 MG Levothyroxine Sodium 75 mcg QAM@0600 PO 05/15/24 06:00 05/19/24 05:42 75 MCG Metoprolol Tartrate 50 mg BID PO 05/15/24 10:00 05/19/24 09:35 50 MG Diagnostic Test (Pha) 1 strip Q6HR 05/15/24 00:00 05/19/24 13:18 1 STRIP Insulin Human Regular Q6HR SC 05/15/24 00:00 05/19/24 13:18 2 UNITS Dextrose 50 ml UD PRN IV 05/14/24 23:30 Acetaminophen/ Hydrocodone Bitart 1 tab Q4HP PRN PO 05/14/24 23:30 05/19/24 14:39 1 TAB Ondansetron HCl 4 mg Q4HP PRN IV 05/14/24 23:30 05/16/24 17:46 4 MG Acetaminophen 650 mg Q6HP PRN PO 05/14/24 23:30 05/17/24 17:36 650 MG Nitroglycerin 0.4 mg Q5MINP PRN SL 05/14/24 23:30 Morphine Sulfate 2 mg Q30M PRN IV 05/14/24 23:30 Sodium Chloride 1,000 ml @ 75 mls/hr [id number] IV 05/15/24 08:30 05/19/24 06:33 75 MLS/HR Saccharomyces Boulardii 250 mg DAILY PO 05/15/24 10:00 05/19/24 09:35 250 MG Enoxaparin Sodium 40 mg DAILY SC 05/17/24 22:00 05/19/24 09:36 40 MG Metoclopramide HCl 10 mg Q8HR IV 05/17/24 15:00 05/19/24 14:39 10 MG Pantoprazole Sodium 40 mg DAILY IV 05/17/24 15:00 05/19/24 09:34 40 MG Sodium Phosphate 1 tab TIDWM PO 05/19/24 08:00 05/19/24 13:14 1 TAB Calcium Carbonate 500 mg BIDWM PO 05/19/24 18:00 Examination Gen: 79-year-old female in mild distress Skin: Warm, dry, normal color and texture, no rash. HEENT: Normocephalic atraumatic, mucous membranes moist and pink. Neck: Cervical and supraclavicular nodes normal without enlargement, trachea is midline, thyroid gland is normal without masses. Pulmonary: Clear to auscultation and percussion bilaterally. Cardiac: Regular rate and rhythm. No murmur Abdomen: Soft, lower abdominal tenderness, nondistended, bowel sounds present all 4 quadrants, no guarding, no rigidity, no organomegaly. 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 laboratory and microbiology Laboratory Tests 05/19/24 11:00 Test 05/19/24 11:00 Range/Units Serum Glucose 171 H 74-106 mg/dL Microbiology Date/Time Source Procedure Growth Status 05/17/24 10:45 Voided Urine Urine Culture - Final Complete 05/15/24 03:40 Stool Clostridium difficile Toxin Assay - Final Complete Problem List/Assessment/Plan Problem List/Assessment/Plan #Sepsis due to acute possible bacterial gastroenteritis/UTI #UTI #H/o of RA #DM type 2 #Hypertension #Hypothyrodisim #Hyperlipidemia #Hypokalemia #Tachycardia resolving #Hypomagnesemia #Hypocalcemia #Hypophospathemia #Hyperparathyroidism due to hypocalcemia Advance diet IV fluid 75 cc/h Ceftriaxone + metronidazole IV Florastor Urine culture pendin colonies Keep the amlodipine for BP only Reglan and zofran for nausea K IV ECG: sinus tachycardia: lactate normal and CRP high Mg IV Ph PO VIT D levels normal F/U hypocalcemia as outpatient: urine Ca2+ 24 h Case discussed with Dr Parham Time spent on care 23 min Plan discussed with: Patient, Other (rn) My Orders My Orders Orders - DG TAVAREZ Procedure Category Date Status Time Consistent DIET 05/18/24 Transmitted Carb(Ccho)Diabetes Dinner Pota Phos & Sod Phos PHA 05/19/24 In Process Tablet (Neutra-Phos 08:00 Send Out LAB 05/19/24 Logged Miscellaneous Lab Ref 09:38 Calcium Carbonate PHA 05/19/24 In Process (Tums) 18:00 Potassium Phosphate PHA 05/19/24 In Process 13:30 Dietary Evaluation Review Comments: advance to low fat CCHO-60 diet when pt is able to eat and medically feasible. Expected Outcomes/Goals: controlled DM, gradual wt loss. Date of Service: May 19, 2024 Billing Provider: ROBIN PARHAM MD Common Visit Codes: [id number] INP/OBS CARE(HIGH) DG TAVAREZ RESIDENT May 19, 2024 16:40 ROBIN PARHAM MD May 21, 2024 18:11
[2024-05-19] MEDS: CALCIUM CARB 500 MG CHEW TAB PO SCH (18:27)
[2024-05-19] MEDS: POTASSIUM PHOSPHATE 22 MEQ in SODIUM CHL 0.9% 100 ML IV ONE (20:47)
[2024-05-20 01:00] VITALS: BP 155/57; PULSE 80; RESP 18; TEMP 97.4; O2SAT 95
[2024-05-20 05:00] VITALS: BP 150/75; PULSE 85; RESP 17; TEMP 98.4; O2SAT 95
[2024-05-20 08:00] VITALS: PULSE 103
[2024-05-20 08:15] VITALS: PULSE 97; RESP 18
[2024-05-20 09:00] VITALS: BP 164/82; PULSE 102; RESP 20; TEMP 102; O2SAT 97
[2024-05-20] MEDS ORDERED: SACC250C PO (09:39)
--- NOTE | 2024-05-20 10:05 | DVHDSRES ---
Discharge Summary Date of Admission Resident Creating Document: DG TAVAREZ RESIDENT May 14, 2024 at 23:25 Date of Discharge: May 20, 2024 Admitting Diagnosis Sepsis due to acute gastroenteritis and UTI Labs/Diagnostic Data: Laboratory Results Test 05/20/24 06:09 05/19/24 11:00 05/19/24 06:57 05/18/24 05:46 POC Glucose 137 mg/dl (70-106) White Blood Count 4.7 10^3/uL (4.4-10.8) Red Blood Count 4.20 10^6/uL (4.0-5.20) Hemoglobin 11.6 g/dL (12.2-16.2) Hematocrit 35.4 % (36.0-46.0) Mean Corpuscular Volume 84.3 fL (80.0-100.0) Mean Corpuscular Hemoglobin 27.6 pg (28.0-32.0) Mean Corpuscular Hemoglobin Concent 32.8 g/dL (32.0-36.0) Red Cell Distribution Width 15.4 % (11.8-14.3) Platelet Count 149 10^3/uL (140-450) Mean Platelet Volume 7.6 fL (6.9-10.8) Neutrophils (%) (Auto) 69.4 % (37.0-80.0) Lymphocytes (%) (Auto) 16.4 % (10.0-50.0) Monocytes (%) (Auto) 12.4 % (0.0-12.0) Eosinophils (%) (Auto) 1.3 % (0.0-7.0) Basophils (%) (Auto) 0.5 % (0.0-2.0) Neutrophils # (Auto) 3.3 10 ^3/uL (1.6-8.6) Lymphocytes # (Auto) 0.8 10 ^3/uL (0.4-5.4) Monocytes # (Auto) 0.6 10 ^3/uL (0-1.3) Eosinophils # (Auto) 0.1 10 ^3/uL (0-0.8) Basophils # (Auto) 0 10 ^3/uL (0-0.2) Nucleated Red Blood Cells 0.1 % Sodium Level 134 mmol/L (136-145) Potassium Level 3.4 mmol/L (3.5-5.1) Chloride Level 105 mmol/L (98-107) Carbon Dioxide Level 18 mmol/L (20-31) Anion Gap 11 (5-15) Blood Urea Nitrogen < 5 mg/dL (9-23) Creatinine 0.70 mg/dL (0.550-1.02) Glomerular Filtration Rate Calc 88 mL/min (>90) BUN/Creatinine Ratio 7.1 (10.0-20.0) Serum Glucose 171 mg/dL (74-106) Calcium Level 7.4 mg/dL (8.7-10.4) Total Bilirubin 0.3 mg/dL (0.2-1.0) Aspartate Amino Transferase (AST) 29 U/L (13-40) Alanine Aminotransferase (ALT) 14 U/L (7-40) Alkaline Phosphatase 36 U/L (46-116) Total Protein 6.0 g/dL (5.7-8.2) Albumin 3.7 g/dL (3.2-4.8) Lipase 73 U/L (12-53) Vitamin D 25-Hydroxy 36.9 ng/mL (30.0-100) Lactic Acid Level 1.0 mmol/L (0.4-2.0) Phosphorus Level 1.3 mg/dL (2.4-5.1) Magnesium Level 1.5 mg/dL (1.6-2.6) C-Reactive Protein High Sensitivity 2.03 mg/dL (<1.0) Thyroid Stimulating Hormone (TSH) 1.63 uIU/mL (0.55-4.78) Parathyroid Hormone (Intact) 286.9 pg/mL (18.4-80.1) Test 05/15/24 01:48 05/14/24 21:34 Urine Color Yellow (Yellow) Urine Clarity Turbid (Clear) Urine pH 6.0 (5.0-9.0) Urine Specific [place] 1.022 (1.001-1.035) Urine Protein 1+ (Negative) Urine Ketones 1+ (Negative) Urine Blood 1+ /uL (Negative) Urine Nitrite Negative (Negative) Urine Bilirubin Negative (Negative) Urine Urobilinogen Normal mg/dL (Negative) Urine Leukocyte Esterase 3+ /uL (Negative) Urine RBC 10 /hpf (0 - 4) Urine Microscopic WBC 21 /HPF (0-5) Urine Squamous Epithelial Cells Few /hpf (<5) Urine Bacteria None seen /hpf (None Seen) Urine Hyaline Casts Few /lpf (0 - 2) Urine Mucus Few (None Seen) Urine Glucose 3+ mg/dL (Normal) Prothrombin Time 10.8 sec (9.3-11.8) Prothrombin Time INR 1.02 (0.9-1.15) Activated Partial Thromboplast Time 25.0 SEC (24.5-34.5) Troponin I High Sensitivity < 3 ng/L (</=34) Other Laboratory Tests 05/19/24 11:00 Brief Hx & Hospital Course: A 79-year-old female with a history of rheumatoid arthritis, type 2 diabetes mellitus, hypertension, hypothyroidism, and recent cholecystectomy presented with complaints of non-radiating lower abdominal pain, nausea, vomiting, and diarrhea. Workup revealed sepsis likely secondary to bacterial gastroenteritis and a urinary tract infection. Additional findings included electrolyte abnormalities, including hypocalcemia, hypokalemia, hypomagnesemia, and hypophosphatemia, along with resolving sinus tachycardia. Urine culture grew three colonies, and inflammatory markers were elevated. The patient was treated with IV fluids, ceftriaxone, and metronidazole. Electrolytes were replenished, and symptomatic management with antiemetics was provided. She responded well to therapy, with improvement in symptoms and stabilization of vital signs. She was discharged with oral calcium and potassium supplements, instructions to follow a bland diet, and outpatient follow-up for urinary calcium levels and primary care. Recommendations were provided for strict monitoring of hydration and medication compliance. Gen: 79-year-old female in mild distress Skin: Warm, dry, normal color and texture, no rash. HEENT: Normocephalic atraumatic, mucous membranes moist and pink. Neck: Cervical and supraclavicular nodes normal without enlargement, trachea is midline, thyroid gland is normal without masses. Pulmonary: Clear to auscultation and percussion bilaterally. Cardiac: Regular rate and rhythm. No murmur Abdomen: Soft, lower abdominal tenderness, nondistended, bowel sounds present all 4 quadrants, no guarding, no rigidity, no organomegaly. 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 Case discussed with Dr Parham Time spent on care 23 min Operations or Procedures CT SCAN ABDOMEN AND PELVIS WITHOUT CONTRAST CLINICAL HISTORY: abd pain TECHNIQUE: Helical axial images are obtained from the lung bases through the pelvis without oral contrast. No intravenous contrast was administered. Coronal and sagittal reformatted images were generated from thin section reconstructions. One or more of the following radiation dose reduction techniques were used for this examination: automated exposure control, adjustment of the mA and/or kV according to patient size, use of iterative reconstruction technique. COMPARISON: CT CT AB PEL WO CON-NO ORAL OR IV on DOS: 02/14/24 FINDINGS: LOWER THORAX: Small, patchy atelectasis / infiltrate in the medial right lower lobe. Correlate to exclude pulmonary infection. Coronary artery calcifications. ABDOMEN AND PELVIS: Evaluation of visceral and vascular structures is limited due to lack of contrast administration. Decreased hepatic parenchymal attenuation which is most commonly secondary to fatty infiltration. The gallbladder is surgically absent. No appreciable biliary ductal dilatation. The spleen, pancreas and adrenals appear grossly unremarkable. No hydroureteronephrosis or sizable, obstructing urinary tract calculi identified. Aortoiliac atherosclerotic calcifications. No evidence of abdominal aortic aneurysm. Fluid content in the stomach and small bowel. No overt dilatation to suggest obstruction at this time. Normal caliber appendix. Scattered colonic diverticuli. No definite CT evidence of diverticulitis. Fluid content is also noted throughout the colon. No free intraperitoneal air or fluid identified. Pelvic structures somewhat obscured by streak artifact from right hip arthroplasty. No definite bladder calculus as visualized. Uterine calcifications. Degenerative changes of the thoracic and lumbar spine. IMPRESSION: No bowel obstruction, free intraperitoneal air/ fluid or sizable inflammatory collections identified on this noncontrast examination. Fluid content noted throughout the small and large bowel is nonspecific but can be seen with enteritis as well as other diarrheal/malabsorptive conditions. Please correlate clinically. Other findings as above. Condition at Discharge: Stable Final Diagnosis/Problems List #Sepsis due to acute possible bacterial gastroenteritis/UTI #UTI - acute cystitis #H/o of RA #DM type 2 #Hypertension #Hypothyrodisim #Hyperlipidemia #Hypokalemia #Tachycardia resolving #Hypomagnesemia #Hypocalcemia #Hypophospathemia #Hyperparathyroidism due to hypocalcemia #MAGALY vasomotor mediated VMN resolved Discharge Disposition: Home Discharge Instruct/Medications Diet: See Comment Diet comment: soft diet Activity: Light activity Follow Up/Referral: f/u with pcp dr Samuels Medications: see prescription Discharge Statement: "Patient was advised to return to the ER or call 911 if any headaches, dizziness, shortness of breath, chest pain, abdominal pain, bleeding, fevers, or worsening of medical condition. Patient was counseled about treatment plan, medications, possible side effects, patientverbalized understanding. All questions were answered to the best of my ability. This discharge took greater then 30 minutes in planning, reviewing documentation, counseling the patient, and discussing with other team members." ASSESSMENT ASSESSMENT Assessment acute gastroenteritis UTI Date of Service: May 20, 2024 Billing Provider: ROBIN PARHAM MD Common Visit Codes: [id number] DISCH DAY >30min DG TAVAREZ RESIDENT May 20, 2024 10:05 ROBIN PARHAM MD May 21, 2024 18:11
[2024-05-20 10:14] VITALS: PULSE 97
== END 2024-05-20 12:30 | disposition home or self-care (01) | DRG 871 ==
LOC: ER 20:40 → EDBD 20:40 → OVERFLOW 23:25 → WEST WING 05-15 02:20 → TELE-WESTW 05-18 09:04
PROVIDERS: ADMIT Student in an Organized Health Care Education/Training Program; ATTEND Student in an Organized Health Care Education/Training Program
DX: A41.9 Sepsis, unspecified organism (principal); K85.90 Acute pancreatitis without necrosis or infection, unspecified; N17.0 Acute kidney failure with tubular necrosis; E87.20 Acidosis, unspecified; A04.9 Bacterial intestinal infection, unspecified; N25.81 Secondary hyperparathyroidism of renal origin; N30.00 Acute cystitis without hematuria; I10 Essential (primary) hypertension; M06.9 Rheumatoid arthritis, unspecified; E11.9 Type 2 diabetes mellitus without complications; E86.0 Dehydration; E83.51 Hypocalcemia; E87.6 Hypokalemia; E78.5 Hyperlipidemia, unspecified; E83.42 Hypomagnesemia; Z90.49 Acquired absence of other specified parts of digestive tract; Z88.1 Allergy status to other antibiotic agents; Z86.73 Personal history of transient ischemic attack (TIA), and cerebral infarction without residual deficits; Z79.4 Long term (current) use of insulin; Z79.899 Other long term (current) drug therapy
CPT/HCPCS: 36415; 71045; 74176; 80048; 80053; 81001; 82306; 82962; 83605; 83690; 83735; 83970; 84100; 84443; 84484; 85025; 85610; 85730; 86141; 87045; 87086; 87427; 87493; 93005; 96365; 96375; 97110; 97116; 97163; 99291; G0378; J1815; J2003; J2405; J2470; J3490

== ENCOUNTER → 2024-08-24 | Outpatient (CLI) | payer MEDICARE, MEDICAID ==
[~2024-08-24] MED LIST changes: -CEFP200T15 PO; -CHOL1TAB42 PO; -DICL1GEL73 TOP; +SACC250C PO
[2024-08-24 09:30] LABS: Basophils # (auto) 0 10 ^3/uL (0-0.2); Basophils % (auto) 0.8 % (0.0-2.0); Eosinophils # (auto) 0.3 10 ^3/uL (0-0.8); Eosinophils % (auto) 5.4 % (0.0-7.0); Hematocrit 35.4 % (36.0-46.0); Hemoglobin 11.7 g/dL (12.2-16.2); Lymphocytes # (auto) 1.4 10 ^3/uL (0.4-5.4); Lymphocytes % (auto) 24.9 % (10.0-50.0); Mean Corpuscular Hgb Conc. 32.9 g/dL (32.0-36.0); Monocytes # (auto) 0.6 10 ^3/uL (0-1.3); Monocytes % (auto) 10.3 % (0.0-12.0); Neutrophils # (auto) 3.3 10 ^3/uL (1.6-8.6); Neutrophils % (auto) 58.6 % (37.0-80.0); Platelet Count (auto) 238 10^3/uL (140-450); Red Blood Cells 4.16 10^6/uL (4.0-5.20); Red Cell Distribution Width 16.2 % (11.8-14.3); White Blood Cell 5.6 10^3/uL (4.4-10.8)
[2024-08-24 09:47] LABS: Urine Bacteria FEW /hpf (None Seen); Urine Blood Negative /uL (Negative); Urine Clarity Turbid (Clear); Urine Color Light-Yellow (Yellow); Urine Hyaline Cast FEW /lpf (0 - 2); Urine Protein, UAD TRACE (Negative); Urine Specific Gravity 1.019 (1.001-1.035); Urine Squamous Epithelial Cell FEW /hpf (<5); Urine Urobilinogen Normal (Negative); Urine WBC 27 /HPF (0-5)
[2024-08-24 09:58] LABS: Alanine Aminotransferase 16 U/L (7-40); Albumin 4.3 g/dL (3.2-4.8); Alkaline Phosphatase 63 U/L (46-116); Anion Gap 11 (5-15); Aspartate Aminotransferase 18 U/L (13-40); BUN/Creatinine Ratio 17.2 (10.0-20.0); Blood Urea Nitrogen 16 mg/dL (9-23); Carbon Dioxide 25 mmol/L (20-31); Chloride 105 mmol/L (98-107); Cholesterol 127 mg/dL (< 200); HDL Cholesterol 44 mg/dL (40-59); LDL Cholesterol 64 mg/dL (< 100); Sodium 141 mmol/L (136-145)
[2024-08-24 09:59] LABS: Bilirubin, Total 0.5 mg/dL (0.2-1.0); Calcium 10.4 mg/dL (8.7-10.4); Glucose 136 mg/dL (74-106); Magnesium 1.3 mg/dL (1.6-2.6); Potassium 3.3 mmol/L (3.5-5.1); Triglycerides 172 mg/dL (< 150)
[2024-08-24 10:03] LABS: Protein, Urine 29.9 mg/dL (1-14)
[2024-08-24 10:04] LABS: Creatinine, Urine 123.47 mg/dL (30.0-125.0); Urine Protein/Creatinine Ratio 0.24
[2024-08-24 11:02] LABS: Free T4 (Free Thyroxine) 1.09 ng/dL (0.89-1.76); T3 Total 1.25 ng/mL (0.60-1.81)
[2024-08-24 11:03] LABS: Free T3 3.15 pg/mL (2.3-4.2)
== END | disposition home or self-care (01) ==
LOC: LAB 08:58
PROVIDERS: ATTEND Student in an Organized Health Care Education/Training Program
DX: I10 Essential (primary) hypertension (principal); E11.9 Type 2 diabetes mellitus without complications; E55.9 Vitamin D deficiency, unspecified; E78.5 Hyperlipidemia, unspecified; E03.9 Hypothyroidism, unspecified; R73.9 Hyperglycemia, unspecified
CPT/HCPCS: 36415; 80053; 80061; 81001; 82043; 82306; 82570; 83036; 83735; 84156; 84439; 84443; 84480; 84481; 85025

== ENCOUNTER 2025-03-23 08:19 | Outpatient (CLI) | payer MEDICARE, MEDICAID ==
[2025-03-23 08:57] LABS: Hematocrit 39.9 % (36.0-46.0); Hemoglobin 13.3 g/dL (12.2-16.2); Mean Corpuscular Hemoglobin 29.7 pg (28.0-32.0); Mean Corpuscular Volume 89.1 fL (80.0-100.0); Nucleated Red Blood Cells % 0.0 %
[2025-03-23 09:05] LABS: Chloride 103 mmol/L (98-107); Potassium 4.2 mmol/L (3.5-5.1); Sodium 140 mmol/L (136-145)
[2025-03-23 09:06] LABS: Anion Gap 10 (5-15); Calcium 10.4 mg/dL (8.7-10.4); Carbon Dioxide 27 mmol/L (20-31); Urine Protein, UAD 1+ (Negative)
[2025-03-23 09:11] LABS: BUN/Creatinine Ratio 10.9 (10.0-20.0); Blood Urea Nitrogen 12 mg/dL (9-23)
[2025-03-23 09:13] LABS: Glucose 139 mg/dL (74-106)
== END 2025-03-23 17:00 | disposition home or self-care (01) ==
LOC: LAB 08:19
PROVIDERS: ATTEND Student in an Organized Health Care Education/Training Program
DX: I10 Essential (primary) hypertension (principal); E11.9 Type 2 diabetes mellitus without complications; E03.8 Other specified hypothyroidism
CPT/HCPCS: 36415; 80048; 81001; 83036; 84439; 84443; 85025